=== PATIENT | male | born 1955 | race Caucasian/White ===

== ENCOUNTER 2023-03-04 16:16 | Outpatient (OUT) | payer OTHER, SELFPAY ==
[2023-03-04 16:45] LABS: Basophils Absolute Auto 0.1 10^3/uL (0.0-0.1); Basophils Percent Auto 0.8 % (0.2-2.0); Eosinophils Absolute Auto 0.4 10^3/uL (0.0-0.7); Eosinophils Percent Auto 5.6 % (0.9-7.0); Hematocrit 45.1 % (42.0-54.0); Hemoglobin 15.3 g/dL (14.0-18.0); Immature Granulocytes Abs Auto 0.01 10^3/uL (0.00-0.03); Immature Granulocytes Pct Auto 0.1 % (0.0-0.5); Lymphocytes Percent Auto 27.4 % (20.5-60.0); Mean Corpuscular HGB Conc 33.9 g/dL (29.9-35.2); Mean Corpuscular Hemoglobin 29.4 pg (25.9-34.0); Mean Corpuscular Volume 86.6 fL (80.0-94.0); Mean Platelet Volume 10.9 fL (9.5-13.5); Monocytes Absolute Auto 0.7 10^3/uL (0.3-0.8); Monocytes Percent Auto 9.1 % (1.7-12.0); Neutrophils Absolute Auto 4.2 10^3/uL (1.4-6.5); Platelet Count 221 10^3/uL (150-450); Red Blood Count 5.21 10^6/uL (4.70-6.10); Red Cell Distribution Width 12.7 % (11.0-15.0); White Blood Count 7.3 10^3/uL (4.0-11.0)
[2023-03-04 17:11] LABS: Alanine Aminotransferase 33 U/L (16-63); Albumin Globulin Ratio 1.1; Albumin Level 4.3 g/dL (3.4-5.0); Alkaline Phosphatase 48 U/L (46-116); Anion Gap 13.3; Aspartate Amino Transferase 17 U/L (15-37); BUN Creatinine Ratio 20.2; Bilirubin Total 0.7 mg/dL (0.2-1.0); Calcium 9.4 mg/dL (8.5-10.1); Carbon Dioxide 29.6 mmol/L (21.0-32.0); Chloride 100 mmol/L (98-107); Estimated GFR (African America >60 (>=60); Estimated GFR (Non-African Ame >60 (>=60); Glucose 135 mg/dL (74-106); Potassium 3.9 mmol/L (3.5-5.1); Sodium 139 mmol/L (136-145); Total Protein 8.3 g/dL (6.4-8.2)
== END 2023-03-04 16:17 | disposition home or self-care (01) ==
PROVIDERS: PCP Internal Medicine; Visit Provider Internal Medicine
DX: K74.60 Unspecified cirrhosis of liver (principal); R18.8 Other ascites
CPT/HCPCS: 36415; 80053; 85025

== ENCOUNTER 2023-10-06 11:29 | Outpatient (OUT) | payer OTHER, SELFPAY ==
[2023-10-06 12:21] LABS: Basophils Absolute Auto 0.1 10^3/uL (0.0-0.1); Basophils Percent Auto 1.1 % (0.2-2.0); Eosinophils Absolute Auto 0.3 10^3/uL (0.0-0.7); Eosinophils Percent Auto 4.7 % (0.9-7.0); Hematocrit 48.2 % (42.0-54.0); Hemoglobin 16.2 g/dL (14.0-18.0); Immature Granulocytes Abs Auto 0.02 10^3/uL (0.00-0.03); Immature Granulocytes Pct Auto 0.4 % (0.0-0.5); Lymphocytes Absolute Auto 1.5 10^3/uL (1.2-3.8); Lymphocytes Percent Auto 27.6 % (20.5-60.0); Mean Corpuscular HGB Conc 33.6 g/dL (29.9-35.2); Mean Corpuscular Hemoglobin 29.7 pg (25.9-34.0); Mean Corpuscular Volume 88.4 fL (80.0-94.0); Mean Platelet Volume 11.7 fL (9.5-13.5); Monocytes Absolute Auto 0.6 10^3/uL (0.3-0.8); Monocytes Percent Auto 10.6 % (1.7-12.0); Neutrophils Absolute Auto 3.1 10^3/uL (1.4-6.5); Neutrophils Percent Auto 55.6 % (43.0-75.0); Platelet Count 214 10^3/uL (150-450); Red Blood Count 5.45 10^6/uL (4.70-6.10); Red Cell Distribution Width 12.5 % (11.0-15.0); White Blood Count 5.5 10^3/uL (4.0-11.0)
[2023-10-06 12:24] LABS: Alanine Aminotransferase 31 U/L (16-63); Albumin Globulin Ratio 0.9; Albumin Level 3.8 g/dL (3.4-5.0); Alkaline Phosphatase 44 U/L (46-116); Anion Gap 12.4; Aspartate Amino Transferase 14 U/L (15-37); BUN Creatinine Ratio 16.5; Bilirubin Total 0.8 mg/dL (0.2-1.0); Carbon Dioxide 29.9 mmol/L (21.0-32.0); Chloride 99 mmol/L (98-107); Estimated GFR (African America >60 (>=60); Estimated GFR (Non-African Ame >60 (>=60); Globulin 4.1 g/dL; Glucose 312 mg/dL (74-106); Potassium 4.3 mmol/L (3.5-5.1); Sodium 137 mmol/L (136-145); Total Protein 7.9 g/dL (6.4-8.2)
[2023-10-07 03:07] LABS: PSA, Free 0.08 ng/mL; Prostate Specific Ag 0.2 ng/mL (0.0-4.0)
== END 2023-10-06 11:30 | disposition home or self-care (01) ==
LOC: LAB 11:30
PROVIDERS: PCP Internal Medicine; Visit Provider Internal Medicine
DX: K74.69 Other cirrhosis of liver (principal); I10 Essential (primary) hypertension; B18.2 Chronic viral hepatitis C; Z12.5 Encounter for screening for malignant neoplasm of prostate
CPT/HCPCS: 36415; 80053; 84153; 84154; 85025

== ENCOUNTER 2023-10-18 10:43 | Outpatient (OUT) | payer OTHER, SELFPAY ==
--- OUTSIDE RECORDS SUMMARY | 2023-10-18 10:47 | XMS_ITS | CCD ---
Author Organization [facility] Care Team Providers Care Financial Intern Name Role Phone KIMBERLEY WALSH JR Admitting Unavailable SHAIKH ELKINS Primary Care Unavailable KIMBERLEY WALSH JR Consulting Unavailable KIMBERLEY WALSH JR Attending Unavailable KIMBERLEY WALSH JR Attending Unavailable KIMBERLEY WALSH JR Admitting Unavailable SHAIKH ELKINS Primary Care Unavailable KIMBERLEY WALSH JR Consulting Unavailable SHAIKH ELKINS Consulting Unavailable LULA BLANTON Consulting Unavailable KIMBERLEY WALSH JR Attending Unavailable SHAIKH ELKINS Primary Care Unavailable KIMBERLEY WALSH JR Admitting Unavailable SHAIKH ELKINS Primary Care Unavailable KIMBERLEY WALSH JR Admitting Unavailable KIMBERLEY WALSH JR Consulting Unavailable KIMBERLEY WALSH JR Attending Unavailable SHAIKH ELKINS Primary Care Unavailable SHAIKH ELKINS Consulting Unavailable SHAIKH ELKINS Attending Unavailable SHAIKH ELKINS Admitting Unavailable MD Bg Perez Attending Provider MD Pat Elkins Primary Care Provider [phone] Bg Perez Attending Unavailable Bg Perez Admitting Unavailable Shaikh Elkins Primary Care Unavailable Diamond Bear Unavailable SHAIKH ELKINS Attending Unavailable Medications Current Medications Medication Drug Class(es) Dates Sig (Normalized) Sig (Original) Ascorbic Acid (1 source) Vitamin C Vitamin C Active Folic Acid (1 source) Folic Acid Activ e Furosemide (1 source) Loop Diuretic Furosemide Activ e Potassium (1 source) Potassium Active vitamin B12 (1 source) Vitamin B12 Vitamin B12 Acti ve Vitamin D3 (1 source) Vitamin D3 Activ e Completed/Discontinued Medications Medication Drug Class(es) Dates Sig (Normalized) Sig (Original) Spironolactone (1 source) Aldosterone Antagonist Spironola ctone Not-Taking/PRN Problems Active Problems Problem Classification Problem Date Documented Date Episodic/Chronic Hepatitis (4 sources) Chronic viral hepatitis C; Translations: [CHRONIC VIRAL HEPATITIS C] Onset: 12-12-2020 Chronic Hepatitis (6 sources) Unspecified viral hepatitis C without hepatic coma; Translations: [Viral hepatitis C] Onset: 03-12-2021 Episodic Influenza (1 source) Influenza due to other identified influenza virus with other respiratory manifestations Episodic Other liver diseases (3 sources) Unspecified cirrhosis of liver; Translations: [Cirrhotic] Onset: 03-12-2021 Chronic Past or Other Problems Problem Classification Problem Date Documented Da te Episodic/Chronic Other screening for suspected conditions (not mental disorders or infectious disease) (4 sources) Encounter for screening for malignant neoplasm of colon; Translations: [ENC SCREEN MALIG NEOPLASM COLON] Onset: 03-07-2021 Episodic Unclassified (1 source) Contact with and (suspected) exposure to covid-19 Z20.822 Results Test Name Value Interpretation Reference Range Facility COVID + FLU Quick Testingon 07-18-2023 SARS-CoV-2 (COVID-19) RNA HARDEEP+probe Ql (Unsp spec) Negative [facility] Other COVID + FLU Quick Testing Positive [facility] Other COVID + FLU Quick Testing Negative [facility] Other AFP Tumor Marker, Serumon AFP Tumor Marker, Serum 0.9 ng/mL Normal 0.0-8.4 [facility] Comment on above: Order Comment: Reason for Exam Cirrhosis Result Comment: [facility] Electrochemiluminescence Immunoassay (ECLIA) Values obtained with different assay methods or kits cannot be used interchangeably. Results cannot be interpreted as absolute evidence of the presence or absence of malignant disease. This test is not interpretable in females. Performed at: - [facility] [id number] [employer] Pro: Jose Alberto Alegria PhD, Phone: [phone] PERFORMED BY: [address] [place] [address] PATHOLOGIST CERTIFICATION OFFICER NORM SKINNER M.D. Performed By: #### A FP #### [facility] , liveron 04-30-2022 liver [facility] [place] [address] Ultrasound Report Signed Patient: Herbert Hightower MR#: [id number] : 1955 Acct:[id number] Age/Sex: 67 / M ADM Date: 04/30/22 Loc: Room: Type: [facility] [address] Attending Dr: Bg Perez MD Ordering Provider: Bg Perez MD Date of Service: 04/30/22 US/US liver: Cirrhosis Copies to: Bg Perez MD Liver ultrasound HISTORY: Cirrhosis COMPARISON:None Negative ultrasound Woods's sign reported. Common duct measures 4mm. Diffuse increased echogenicity of the liver is consistent with fatty infiltration. No hepatic mass identified. No intrahepatic biliary ductal dilatation identified. Shadowing gallstones identified. No gallbladder wall thickening is seen. No pericholecystic fluid is identified. The visualized portions of the pancreas are unremarkable. Normal blood flow of the main portal vein is identified. The liver has a length of16.2 cm. No RIGHT hydronephrosis identified. US/US liver IMPRESSION: Hepatic steatosis. No biliary duct dilatation. Cholelithiasis. Impression dictated by: Xavi Rincon M.D.04/30/2022 4:21 PM Dictation Location: [place] [address] Tech: Roxanne Alyssa Transcribed By: STAR 04/30/22 162 Dictated By: Xavi Rincon DO 04/30/22 161 Signed By: 04/30/22 1621 [facility] HEPATITIS C VIRUS (HCV) TONY T PCR (NON-[place] 09-21-2021 HCV log10 Normal [facility] Comment on above: Performed By: #### HCVQNNG #### [facility] [address] [address] [address] Genet Ballard Hepatitis C Quantitation Not detected Normal [facility] Comment on above: Performed By: #### HCVQNNG #### [facility] [address] [place] [address] Dr. Genet Ballard Test Information: Comment Normal [facility] Comment on above: Result Comment: The quantitative range o f this assay is 15 IU/mL to 100 million IU/mL. Performed By: #### H CVQNNG #### [facility] [address] [place] [address] Dr. Genet Ballard HEPATITIS C VIRUS (HCV) TONY T PCR (NON-[place] 05-09-2021 HCV log10 Normal [facility] Comment on above: Performed By: #### HCVQNNG #### [facility] [address] [place] [address] Dr. Genet Ballard Hepatitis C Quantitation Not detected Normal [facility] Comment on above: Performed By: #### HCVQNNG #### [facility] [address] [place] [address] Dr. Genet Ballard Test Information: Comment Normal [facility] Comment on above: Result Comment: The quantitative range o f this assay is 15 IU/mL to 100 million IU/mL. Performed By: #### H CVQNNG #### [facility] [address] [place] [address] Dr. Genet Ballard CBC AUTO DIFFon 05-07-2021 BASO # 0.1 103/ul Normal 0.0-0.1 [facility] Comment on above: Performed By: #### CBC #### [facility] [address] [place] [address] Dr. Genet Ballard Basophils/100 WBC (Bld) 1.1 % Normal 0.2-2.0 [facility] Comment on above: Performed By: #### CBC #### [facility] [address] [place] [address] Dr. Genet Ballard EO # 0.2 103/ul Normal 0.0-0.7 [facility] Comment on above: Performed By: #### CBC #### [facility] [address] [place] [address] Dr. Genet Ballard Eosinophils/100 WBC (Bld) 2.8 % Normal 0.9-7.0 [facility] Comment on above: Performed By: #### CBC #### [facility] [address] [address] [address] Genet Ballard Erythrocyte distribution width (RBC) [Ratio] 13.0 % Normal 11.0-15.0 [facility] Comment on above: Performed By: #### CBC #### [facility] [address] [address] [address] Genet Ballard Hematocrit (Bld) [Volume fraction] 45.3 % Normal 42.0-54.0 [facility] Comment on above: Performed By: #### CBC #### [facility] [address] [address] [address] Genet Ballard Hemoglobin (Bld) [Mass/Vol] 15.1 g/dL Normal 14.0-18.0 [facility] Comment on above: Performed By: #### CBC #### [facility] [address] [place] [address] Dr. Genet Ballard IG # 0.01 10e3/ul Normal 0.00-0.03 [facility] Comment on above: Performed By: #### CBC #### [facility] [address] [place] [address] Dr. Genet Ballard IG % 0.2 % Normal 0.0-0.5 [facility] Comment on above: Performed By: #### CBC #### [facility] [address] [place] [address] Dr. Genet Ballard LYMPH # 2.4 103/ul Normal 1.2-3.8 [facility] Comment on above: Performed By: #### CBC #### [facility] [address] [place] [address] Dr. Genet Ballard Lymphocytes/100 WBC (Bld) 37.4 % Normal 20.5-60.0 [facility] Comment on above: Performed By: #### CBC #### [facility] [address] [place] [address] Dr. Genet Ballard MANUAL DIFF REQ NO Normal [facility] Comment on above: Performed By: #### CBC #### [facility] [address] [address] [address] Genet Ballard MCH (RBC) [Entitic mass] 30.0 pg Normal 25.9-34.0 [facility] Comment on above: Performed By: #### CBC #### [facility] [address] [place] [address] Dr. Genet Ballard MCHC (RBC) [Mass/Vol] 33.3 g/dL Normal 29.9-35.2 [facility] Comment on above: Performed By: #### CBC #### [facility] [address] [place] [address] Dr. Genet Ballard MCV (RBC) [Entitic vol] 90.1 fL Normal 80.0-94.0 [facility] Comment on above: Performed By: #### CBC #### [facility] [address] [place] [address] Dr. Genet Ballard MONO # 0.6 103/ul Normal 0.3-0.8 [facility] Comment on above: Performed By: #### CBC #### [facility] [address] [place] [address] Dr. Genet Ballard Monocytes/100 WBC (Bld) 9.7 % Normal 1.7-12.0 [facility] Comment on above: Performed By: #### CBC #### [facility] [address] [place] [address] Dr. Genet Ballard NEUT # 3.1 103/ul Normal 1.4-6.5 [facility] Comment on above: Performed By: #### CBC #### [facility] [address] [place] [address] Dr. Genet Ballard Neutrophils/100 WBC (Bld) 48.8 % Normal 43.0-75.0 [facility] Comment on above: Performed By: #### CBC #### [facility] [address] [address] [address] Genet Ballard Platelet mean volume (Bld) [Entitic vol] 11.8 fL Normal 9.5-13.5 [facility] Comment on above: Performed By: #### CBC #### [facility] [address] [address] [address] Genet Ballard PLT 231 103/ul Normal 150-450 [facility] Comment on above: Performed By: #### CBC #### [facility] [address] [place] [address] Dr. Genet Ballard RBC 5.03 106/ul Normal 4.70-6.10 [facility] Comment on above: Performed By: #### CBC #### [facility] [address] [place] [address] Dr. Genet Ballard WBC 6.4 103/ul Normal 4.0-11.0 [facility] Comment on above: Performed By: #### CBC #### [facility] [address] [place] [address] Dr. Genet Ballard PROF 14(COMP METB)on 021 Albumin [Mass/Vol] 4.1 g/dL Normal 3.5-5.0 [facility] Comment on above: Performed By: #### CMP #### [facility] [address] [place] [address] Dr. Genet Ballard Albumin/Globuli n [Mass ratio] 1.1 {ratio} Normal [facility] Comment on above: Performed By: #### CMP #### [facility] [address] [place] [address] Dr. Genet Ballard ALP [Catalytic activity/Vol] 38 U/L Normal 38-126 [facility] Comment on above: Performed By: #### CMP #### [facility] [address] [place] [address] Dr. Genet Ballard ALT [Catalytic activity/Vol] 23 U/L Normal 21-72 [facility] Comment on above: Performed By: #### CMP #### [facility] [address] [place] [address] Dr. Genet Ballard Anion gap [Moles/Vol] 11.1 mmol/L Normal [facility] Comment on above: Performed By: #### CMP #### [facility] [address] [place] [address] Dr. Genet Ballard AST [Catalytic activity/Vol] 20 U/L Normal 17-59 [facility] Comment on above: Performed By: #### CMP #### [facility] [address] [address] [address] Genet Ballard Bilirubin [Mass/Vol] 0.9 mg/dL Normal 0.2-1.3 [facility] Comment on above: Performed By: #### CMP #### [facility] [address] [address] [address] Genet Ballard Calcium [Mass/Vol] 9.4 mg/dL Normal 8.4-10.2 [facility] Comment on above: Performed By: #### CMP #### [facility] [address] [address] [address] Genet Ballard Chloride [Moles/Vol] 104 mmol/L Normal 98-107 [facility] Comment on above: Performed By: #### CMP #### [facility] [address] [address] [address] Genet Ballard CO2 [Moles/Vol] 31.4 mmol/L Critically high 22.0-30.0 [facility] Comment on above: Performed By: #### CMP #### [facility] [address] [address] [address] Genet Ballard Creatinine [Mass/Vol] 0.90 mg/dL Normal 0.66-1.25 [facility] Comment on above: Performed By: #### CMP #### [facility] [address] [address] [address] Genet Ballard EGFR-AF HONG KONGER >60 Normal >=60 [facility] Comment on above: Performed By: #### CMP #### [facility] [address] [address] [address] Genet Ballard EGFR-NON AF [place]ER >60 Normal >=60 [facility] Comment on above: Performed By: #### CMP #### [facility] [address] [place] [address] Dr. Genet Blalard Globulin (S) [Mass/Vol] 3.8 g/dL Normal [facility] Comment on above: Performed By: #### CMP #### [facility] [address] [address] [address] Genet Ballard Glucose [Mass/Vol] 119 mg/dL Critically high 74-106 [facility] Comment on above: Performed By: #### CMP #### [facility] [address] [address] [address] Genet Ballard Potassium [Moles/Vol] 4.5 mmol/L Normal 3.4-5.0 [facility] Comment on above: Performed By: #### CMP #### [facility] [address] [place] [address] Dr. Genet Ballard Protein [Mass/Vol] 7.9 g/dL Normal 6.1-8.2 [facility] Comment on above: Performed By: #### CMP #### [facility] [address] [place] [address] Dr. Genet Ballard Sodium [Moles/Vol] 142 mmol/L Normal 137-145 [facility] Comment on above: Performed By: #### CMP #### [facility] [address] [place] [address] Dr. Genet Ballard Urea nitrogen [Mass/Vol] 16.0 mg/dL Normal 9.0-20.0 [facility] Comment on above: Performed By: #### CMP #### [facility] [address] [place] [address] Dr. Genet Ballard Urea nitrogen/Creati nine [Mass ratio] 17.8 mg/mg Normal [facility] Comment on above: Performed By: #### CMP #### [facility] [address] [place] [address] Dr. Genet Ballard HEPATITIS C VIRUS GENOTYPING , NONREFLEXon 12-14-2020 Hepatitis C Genotype 1a Normal [facility] Comment on above: Performed By: #### HCVGENE #### [facility] [address] [place] [address] Jeffrey Lazo Please note: Comment Normal [facility] Comment on above: Result Comment: This test was developed and its performance characteristics determined by [facility]. It has not been cleared or approved by the U.S. Food and Drug Administration. . The FDA has determined that such clearance or approval is not necessary. This test is used for clinical purposes. It should not be regarded as investigational or for research. Performed By: #### H CVGENE #### [facility] [address] [place] [address] Jeffrey Lazo HEP B SURFACE AGon HBsAg Screen Negative Normal Negative [facility] Comment on above: Performed By: #### HEPBSUR #### [facility] [address] [place] [address] Jeffrey Lazo HEPATITIS B SURFACE ANTIBODY , QUANTon 12-13-2020 Hepatitis B Surf AB Quant <3.1 Critically low Immunity>9.9 [facility] Comment on above: Result Comment: Status of Immunity Anti- HBs Level Inconsistent with Immunity 0.0 - 9.9 Consistent with Immunity >9.9 Performed By: #### H EPBSRF #### [facility] [address] [place] [address] Jeffrey Lazo HEPATITIS C ANTIBODYon 12-13 Hep C Virus Ab >11.0 Critically high 0.0-0.9 [facility] Comment on above: Result Comment: Negative: < 0.8 Indeterminate: 0.8 - 0.9 Positive: > 0.9 . The CDC recommends that a positive HCV antibody result be followed up with a HCV Nucleic Acid Amplification test (171800). Performed By: #### H CV #### [facility] [address] [place] [address] Jeffrey Lazo HEPATITIS C VIRUS (HCV) TONY T PCR (NON-[place] 12-13-2020 HCV log10 6.524 log10 IU/mL Normal [facility] Comment on above: Performed By: #### HCVQNNG #### [facility] [address] [place] [address] Jeffrey Lazo Hepatitis C Quantitation [id number] IU/mL Normal [facility] Comment on above: Performed By: #### HCVQNNG #### [facility] [address] [place] [address] Jeffrey Lazo Test Information: Comment Normal [facility] Comment on above: Result Comment: The quantitative range o f this assay is 15 IU/mL to 100 million IU/mL. Performed By: #### H CVQNNG #### [facility] [address] [place] [address] Jeffreylindsay Lazo PROF 14(COMP METB)on 021 Albumin [Mass/Vol] 3.8 g/dL Normal 3.5-5.0 [facility] Comment on above: Performed By: #### CMP #### [facility] [address] [place] [address] Jeffrey Violet Albumin/Globuli n [Mass ratio] 0.9 {ratio} Normal [facility] Comment on above: Performed By: #### CMP #### [facility] [address] [place] [address] Jeffrey Violet ALP [Catalytic activity/Vol] 42 U/L Normal 38-126 [facility] Comment on above: Performed By: #### CMP #### [facility] [address] [place] [address] Jeffrey Violet ALT [Catalytic activity/Vol] 52 U/L Normal 21-72 [facility] Comment on above: Performed By: #### CMP #### [facility] [address] [place], [place] [id number] Jeffrey Violet Anion gap [Moles/Vol] 13.7 mmol/L Normal [facility] Comment on above: Performed By: #### CMP #### [facility] [address] [place] [address] Jeffrey Violet AST [Catalytic activity/Vol] 29 U/L Normal 17-59 [facility] Comment on above: Performed By: #### CMP #### [facility] [address] [place], [place] [id number] Jeffrey Violet Bilirubin [Mass/Vol] 0.9 mg/dL Normal 0.2-1.3 [facility] Comment on above: Performed By: #### CMP #### [facility] [address] [place] [address] Jeffrey Violet Calcium [Mass/Vol] 8.8 mg/dL Normal 8.4-10.2 [facility] Comment on above: Performed By: #### CMP #### [facility] [address] [id number] Jeffrey Violet Chloride [Moles/Vol] 102 mmol/L Normal 98-107 [facility] Comment on above: Performed By: #### CMP #### [facility] [address] [address] Jeffrey Violet CO2 [Moles/Vol] 27.3 mmol/L Normal 22.0-30.0 [facility] Comment on above: Performed By: #### CMP #### [facility] [address] [place] [address] Jeffrey Violet Creatinine [Mass/Vol] 0.97 mg/dL Normal 0.66-1.25 [facility] Comment on above: Performed By: #### CMP #### [facility] [address] [place] [address] Ejffrey Violet EGFR-AF [place]ER >60 Normal >=60 [facility] Comment on above: Performed By: #### CMP #### [facility] [address] [place] [address] Jeffrey Violet EGFR-NON AF [place]ER >60 Normal >=60 [facility] Comment on above: Performed By: #### CMP #### [facility] [address] [place] [address] Jeffrey Violet Globulin (S) [Mass/Vol] 4.0 g/dL Normal [facility] Comment on above: Performed By: #### CMP #### [facility] [address] [place] [address] Jeffrey Violet Glucose [Mass/Vol] 148 mg/dL Critically high 74-106 [facility] Comment on above: Performed By: #### CMP #### [facility] [address] [place] [address] Jeffrey Violet Potassium [Moles/Vol] 4.0 mmol/L Normal 3.4-5.0 [facility] Comment on above: Performed By: #### CMP #### [facility] [address] [place] [address] Jeffrey Violet Protein [Mass/Vol] 7.8 g/dL Normal 6.1-8.2 [facility] Comment on above: Performed By: #### CMP #### [facility] [address] [place] [address] Jeffrey Violet Sodium [Moles/Vol] 139 mmol/L Normal 137-145 [facility] Comment on above: Performed By: #### CMP #### [facility] [address] [place], [place] [id number] Jeffrey Violet Urea nitrogen [Mass/Vol] 16.0 mg/dL Normal 9.0-20.0 [facility] Comment on above: Performed By: #### CMP #### [facility] [address] [place], [place] [id number] Jeffrey Violet Urea nitrogen/Creati nine [Mass ratio] 16.5 mg/mg Normal [facility] Comment on above: Performed By: #### CMP #### [facility] [address] [place] [address] Jeffrey Clarkeen PROTIMEon 12-12-2020 INR Coag (PPP) [Relative time] 0.96 {INR} Normal [facility] Comment on above: Performed By: #### HCVQNNG #### [facility] [address] [place] [address] Dr. Genet Ballard INR GUIDELINES SEE BELOW Normal [facility] Comment on above: Result Comment: DESIRED INR: 2.0 - 3.0 C ONDITIONS NOT LISTED BELOW 2.5 - 3.5 FOR PROSTHETIC HEART VALVE REPLACEMENT 2.5 - 3.5 RECURRENT THROMBOSIS Performed By: #### H CVQNNG #### [facility] [address] [place] [address] Dr. Genet Ballard PT Coag (PPP) [Time] 10.5 s Normal 9.0-11.6 [facility] Comment on above: Performed By: #### HCVQNNG #### [facility] [address] [place] [address] Dr. Genet Ballard Vital Signs Date Time Vital Sign Value Performing Clinician Facility 07-18-2023 09:35-0500 Body height 185.42 cm Diamond Bear Other [facility] Other 07-18-2023 09:35-0500 Body mass index (BMI) [Ratio] 30.34 kg/m2 Diamond Marianela Other [facility] Other 07-18-2023 09:35-0500 Body temperature 99.3 [degF] Diamond Marianela Other [facility] Other 07-18-2023 09:35-0500 Body weight 104.33 kg Diamond Marianela Other [facility] Other 07-18-2023 09:35-0500 Diastolic blood pressure 84 mm[Hg] Diamond Marianela Other [facility] Other 07-18-2023 09:35-0500 Respiratory rate 18 /min Diamond Marianela Other [facility] Other 07-18-2023 09:35-0500 SaO2% (BldA) [Mass fraction] 96 % Diamond Marianela Other [facility] Other 07-18-2023 09:35-0500 Systolic blood pressure 140 mm[Hg] Diamond Marianela Other [facility] Other Encounters Encounter Date Encounter Type Care Provider Facility Start: 09-16-2023 End: 09-16-2023 ambulatory SHAIKH ERYN Not Available Start: 07-18-2023 End: 07-18-2023 ambulatory Diamond Bear Other [facility] Other Start: 07-18-2023 Office outpatient vi sit 15 minutes Diamond Bear [facility] Start: 04-30-2022 End: 04-30-2022 ambulatory Bg Perez Facility:[facility] Start: 04-30-2022 End: 04-30-2022 ambulatory MD Shaikh Elkins Work Phone: [facility] Work Phone: Start: 04-30-2022 End: 04-30-2022 Patient encounter procedure MD Shaikh Elkins Work Phone: [facility] [place] Start: 09-19-2021 End: 09-20-2021 ambulatory KIMBERLEY WALSH JR Facility:[facility] Start: 05-07-2021 End: 05-08-2021 ambulatory SHAIKH ERYN Facility:[facility] Start: 03-07-2021 End: 03-07-2021 ambulatory KIMBERLEY WALSH JR Facility:[facility] Start: 03-05-2021 ambulatory KIMBERLEY WALSH JR Facili ty:[facility] Start: 12-12-2020 End: 12-13-2020 ambulatory SHAIKH ERYN Facility:[facility] Procedures Date Procedure Procedure Detail Performing Clinician Start: 04-30-2022 Ultrasonography of liver MD Shaikh Elkins Work Phone: Screening for malign ant neoplasm of colon Diamond Bear Other Plan of Treatment Date Care Activity Detail Author [id number]. tumor marker [Mass/volume] in Serum or Plasma [facility] Work Phone: Immunizations Immunization Date Immunization Notes Care Provider Luda romero 11-04-2020 Do not use COVID-19 Pfizer 2 dose Diamond Bear Other [facility] Other 10-29-2020 COVID-19 mRNA, Comirnaty (Pfizer) MD Shaikh Elkins Work Phone: [facility] 10-13-2020 COVID-19 mRNA Comirnatyobany (Pfizer) MD Shaikh Elkins Work Phone: [facility] Payers Date Payer Category Payer Self-pay [id number] 1958 Unknown [id number] 1955 Unknown [id number] 2.16.84 [id number] 1955 Unknown [id number] 2.16.84 [id number] 1955 Unknown [id number] 2.16.84 [id number] 1955 Unknown [id number] 2.16.84 [id number] 1955 Unknown [id number] 2.16.84 [id number] 1955 Unknown [id number] 2.16.84 [id number] Unknown [id number] 2.16.8 [id number] Unknown [id number] 2.16.8 [id number] Social History Date Type Detail Facility Tobacco smoking status NDIS Unknown if ever smoked [facility] Work Phone: Start: 1955 Sex Assigned At Male F [facility] Sex Assigned At Sex Assigned At Bir th [facility] Other Evaluation note 07-18-2023 Note Date & Type Note Facility 07-18-2023 Evaluation note Encounter Date Diagnosis Assessment Notes Jun, Contact with and (suspected) exposure to covid-19 (ICD-10 - Z20.822) Jun, Influenza A (ICD-10 - J10.1) Jun, Other Influenza: adult home care material was printed Drink plenty of fluids, get plenty of rest. Take tylenol or motrin for aches, pains, fevers. It is recommended that you quarentine unitl Friday. Follow up with your family physician if no improvement in 2-3 days [facility] Other Clinical Note 03-07-2021 Note Date & Type Note Facility 03-07-2021 Note OPERATIVE NOTE OPERATION DATE: 03-07-21 ANESTHETIC: MAC. Propofol as per the anesthesia department. PREOPERATIVE DIAGNOSIS: 1. Cirrhosis, rule-out varices. 2. Colorectal cancer screening. POSTOPERATIVE DIAGNOSIS: 1. Normal EGD. 2. Normal colonoscopy. PROCEDURE NAME: 1. EGD. 2. Colonoscopy. INDICATION: O2 oximetry, hemodynamic monitoring performed pre, during and post procedures. The patient was identified, H AND P completed. The patient was given full explanation of the procedures as well as associated risks and written consent was obtained prior to the procedures. The patient expressed complete understanding of the procedures as well as alternatives to the procedures and anesthesia and agrees to proceed with the procedures as indicated. The patient was immediately reassessed prior to IV sedation. PROCEDURE: Following IV sedation, the patient was placed in the left lateral decubitus position. A bite block was inserted. The endoscope was passed through the mouth and down to the esophagus. The scope was passed down the GE junction which appeared normal. The scope was then continued into the stomach, down to the antrum, through the pyloric channel into the duodenal bulb and the second portion of the duodenum. There was no evidence of any duodenitis. The scope was withdrawn back into the stomach, there was no evidence of gastritis. Retroflexion was performed which demonstrated no significant hiatal hernia. There were no gastric varices. The scope was then straightened. The stomach was decompressed, the scope was withdrawn into the esophagus, there were no esophageal varices. The scope was removed. Subsequently the bed was switched around, the scope was changed. A digital rectal exam was performed which did not demonstrate any masses. The videocolonoscope was inserted and passed proximally. The colonoscope was advanced over to the right side, the ileocecal valve, cecal floor and appendiceal orifice were identified. The colonoscope was slowly withdrawn through the ascending colon, hepatic flexure, transverse colon, splenic flexure, descending colon and into the sigmoid colon. There were no polyps identified. The colonoscope was then withdrawn into the rectum, retroflexion was performed which demonstrated no significant hemorrhoids. The colonoscope was then straightened and removed. Following a period of recovery, the patient was seen, given full explanation of the procedures. The patient tolerated the procedures well and may be discharged when in satisfactory, stable and ambulatory condition. RECOMMENDATIONS: 1. Colonoscopy would be recommended in 10 years. 2. Followup in the office for continued management of cirrhosis. [facility] Signed and Approved by: KIMBERLEY WALSH JR 03/07/2021 11:12:00 [facility] Evaluation note Note Date & Type Note Facility Evaluation note No assessment information availa [facility] Work Phone: History general Narrative - Reported Note Date & Type Note Facility History general Narrative - Reported Type Medical History hepatitis C [facility] Other Summary Purpose Family History No Family History Records FoundNo Family History Records FoundNo Family History Records Found Advance Directives No Advanced Directives Records Found Advance Directive Response Recorded Date/ Time Advance Directives No February 19 10:04am Chief Complaint and Reason for Visit Chief Complaint Cirrhosis Additional Source Comments (unrecognized sect ion and content) No Status Records FoundNo Status Records FoundNo Status Records Found INFORMATION SOURCE (unrecogn ized section and content) DATE CREATED AUTHOR 09/21/2021 [facility] DATE CREATED AUTHOR AUTHOR'S ORGANIZ ATION 05/01/[address] [facility] DATE CREATED AUTHOR AUTHOR'S ORGANIZ ATION 09/23/2023 [facility] EPIC Care Teams (unrecognized sec tion and content) Team Status: Inactive Member Role Status Dates Bg Perez MD Attending Provider Active Shaikh Eryn MD Primary Care Provider Active Team Status: Active Member Role Status Dates Shaikh Eryn MD Primary Care Provider Active Goals (unrecognized section and content) Goals may be documented in a n alternate sectionNo Information REASON FOR VISIT (unrecogniz ed section and content) POSS SINUS INFECTION FOR RECORDS PERTAINING TO PATIENTS WHO ARE OR HAVE BEEN ENROLLED IN A CHEMICAL DEPENDENCY/SUBSTANCEABUSE PROGRAM, SOME INFORMATION MAY BE OMITTED. This clinical summary was aggregated from multiple sources. Caution should be exercised in using it in the provision of clinical care. This summary normalizes information from multiple sources, and as a consequence, information in this document may materially change the coding, format and clinical context of patient data. In addition, data may be omitted in some cases. CLINICAL DECISIONS SHOULD BE BASED ON THE PRIMARY CLINICAL RECORDS. [employer] [facility]. provides no warranty or guarantee of the accuracy or completeness of information in this document.
--- NOTE | 2023-10-18 11:11 | US_ITS ---
[address] [address] Patient Name: STEFFI HIGHTOWER MRN: [id number] date: 1955 Sex: M Assigned Patient Location: US Current Patient Location: Accession/Order Number: [id number] Exam Date: 10/18/2023 11:15 Report Date: 10/20/2023 07:19 At the request of: SHAIKH BRITTNI Procedure: US right upper quadrant EXAM: US right upper quadrant HISTORY: Chronic hepatitis C without hepatic coma B18.2 COMPARISON: None. TECHNIQUE: Grayscale, color and Doppler FINDINGS: The liver is normal in size measuring 19.1 cm. Normal contour. Diffusely echogenic liver. Multiple areas of hypoechogenicity scattered throughout the liver are nonspecific possibly representing fatty sparing but indeterminate. Hepatopedal flow in the main portal vein with velocity 23 cm/s. The visualized pancreas is normal. The gallbladder is normal in size. The wall measures 1.7 mm, normal. Negative sonographic Woods sign. Echogenic focus within the gallbladder lumen measuring 2.7 cm, cholelithiasis. The common bile duct measures 5.2 mm. The right kidney is normal measuring 12.2 x 6.4 x 6.1 cm US/US right upper quadrant IMPRESSION: Echogenic liver with areas of hypoechogenicity, indeterminate. Consider multiphasic CT or MRI for further evaluation Electronically authenticated by: KIMBERLEY LEPE Date: 10/20/2023 07:19
== END 2023-10-18 10:44 | disposition home or self-care (01) ==
LOC: US 10:44
PROVIDERS: PCP Internal Medicine; Visit Provider Internal Medicine
DX: K74.69 Other cirrhosis of liver (principal); B18.2 Chronic viral hepatitis C; K80.20 Calculus of gallbladder without cholecystitis without obstruction
CPT/HCPCS: 76705

== ENCOUNTER 2023-11-04 07:39 | Outpatient (OUT) | payer OTHER, SELFPAY ==
--- OUTSIDE RECORDS SUMMARY | 2023-11-04 07:41 | XMS_ITS | CCD ---
Author Organization [facility] Care Team Providers Care Press Pipe Inspector Name Role Phone KIMBERLEY WALSH JR Admitting [...] Provider MD Pat Elkins Primary Care Provider Bg Perez Attending Unavailable Bg Perez Admitting [...] (COVID-19) RNA HARDEEP+probe Ql (Unsp spec) Negative [facility] Other COVID + FLU Quick Testing Positive [facility] Other COVID + FLU Quick Testing Negative [facility] Other AFP Tumor Marker, Serumon AFP Tumor Marker, Serum 0.9 ng/mL Normal 0.0-8.4 [facility] Comment on above: Order Comment: Reason for Exam Cirrhosis Result Comment: [facility] [employer] Electrochemiluminescence Immunoassay (ECLIA) Values obtained with different assay methods or kits cannot be used interchangeably. Results cannot be interpreted as absolute evidence of the presence or absence of malignant disease. This test is not interpretable in females. Performed at: - [address] [id number] Precision Lathe Operator: Jose Alberto Alegria PhD, Phone: [phone] PERFORMED BY: [address] [place] [address] PATHOLOGIST CHIEF ENVIRONMENTAL COMMITMENT OFFICER NORM SKINNER M.D. Performed By: #### A FP #### [facility] , liveron 04-30-2022 liver [facility] [place] [address] Ultrasound Report Signed Patient: Herbert Hightower MR#: [id number] : 1955 Acct:[id number] Age/Sex: 67 / M ADM Date: 04/30/22 Loc: Room: Type: [facility] Attending Dr: Bg Perez MD Ordering Provider: [...] Xavi Rincon M.D.04/30/2022 4:21 PM Dictation Location: [place] [address] Tech: Roxanne Alyssa Transcribed By: STAR 04/30/22 162 Dictated By: Xvai Rincon DO 04/30/22 161 Signed By: 04/30/22 1621 [facility] HEPATITIS C VIRUS (HCV) TONY T PCR (NON-[place] 09-21-2021 HCV log10 Normal [facility] Comment on above: Performed By: #### HCVQNNG #### [facility] [address] [place] [address] [address] Genet Ballard Hepatitis C Quantitation Not detected Normal [facility] Comment on above: Performed By: #### HCVQNNG #### [facility] [address] [place] [address] Dr. Genet Ballard Test Information: Comment Normal [facility] Comment on above: Result Comment: The quantitative range o f this assay is 15 IU/mL to 100 million IU/mL. Performed By: #### H CVQNNG #### [facility] [address] [place] [address] Dr. Genet Ballard HEPATITIS C VIRUS (HCV) TONY T PCR (NON-Moreno 05-09-2021 HCV log10 Normal [facility] Comment on above: Performed By: #### HCVQNNG #### [facility] [address] [place] [address] Dr. Genet Ballard Hepatitis C Quantitation Not detected Normal [facility] Comment on above: Performed By: #### HCVQNNG #### [facility] [address] [place] [address] Dr. Genet Ballard Test Information: Comment Normal [facility] Comment on above: Result Comment: The quantitative range o f this assay is 15 IU/mL to 100 million IU/mL. Performed By: #### H CVQNNG #### [facility] [address] [place] [address] Dr. Genet Blalard CBC AUTO DIFFon 05-07-2021 BASO # 0.1 103/ul Normal 0.0-0.1 [facility] Comment on above: Performed By: #### CBC #### [facility] [address] [place] [address] Dr. Genet Ballard Basophils/100 WBC (Bld) 1.1 % Normal 0.2-2.0 [facility] Comment on above: Performed By: #### CBC #### [facility] [address] [place] [address] Dr. Genet Ballard EO # 0.2 103/ul Normal 0.0-0.7 [facility] Comment on above: Performed By: #### CBC #### [facility] [address] [place] [address] Dr. Genet Ballard Eosinophils/100 WBC (Bld) 2.8 % Normal 0.9-7.0 [facility] Comment on above: Performed By: #### CBC #### [facility] [address] [place] [address] [address] Genet Ballard Erythrocyte distribution width (RBC) [Ratio] 13.0 % Normal 11.0-15.0 [facility] Comment on above: Performed By: #### CBC #### [facility] [address] [place] [address] [address] Genet Ballard Hematocrit (Bld) [Volume fraction] 45.3 % Normal 42.0-54.0 [facility] Comment on above: Performed By: #### CBC #### [facility] [address] [address] [address] Genet Ballard Hemoglobin (Bld) [Mass/Vol] 15.1 g/dL Normal 14.0-18.0 [facility] Comment on above: Performed By: #### CBC #### [facility] [address] [place] [address] Dr. Genet Ballard IG # 0.01 10e3/ul Normal 0.00-0.03 [facility] Comment on above: Performed By: #### CBC #### [facility] [address] [place] [address] Dr. Genet Ballard IG % 0.2 % Normal 0.0-0.5 [facility] Comment on above: Performed By: #### CBC #### [facility] [address] [place] [address] Dr. Genet Ballard LYMPH # 2.4 103/ul Normal 1.2-3.8 [facility] Comment on above: Performed By: #### CBC #### [facility] [address] [place] [address] Dr. Genet Ballard Lymphocytes/100 WBC (Bld) 37.4 % Normal 20.5-60.0 [facility] Comment on above: Performed By: #### CBC #### [facility] [address] [place] [address] Dr. Genet Ballard MANUAL DIFF REQ NO Normal [facility] Comment on above: Performed By: #### CBC #### [facility] [address] [address] [address] Genet Ballard MCH (RBC) [Entitic mass] 30.0 pg Normal 25.9-34.0 [facility] Comment on above: Performed By: #### CBC #### [facility] [address] [place] [address] Dr. Genet Ballard MCHC (RBC) [Mass/Vol] 33.3 g/dL Normal 29.9-35.2 [facility] Comment on above: Performed By: #### CBC #### [facility] [address] [place] [address] Dr. Genet Ballard MCV (RBC) [Entitic vol] 90.1 fL Normal 80.0-94.0 [facility] Comment on above: Performed By: #### CBC #### [facility] [address] [place] [address] Dr. Genet Ballard MONO # 0.6 103/ul Normal 0.3-0.8 [facility] Comment on above: Performed By: #### CBC #### [facility] [address] [place] [address] Dr. Genet Ballard Monocytes/100 WBC (Bld) 9.7 % Normal 1.7-12.0 [facility] Comment on above: Performed By: #### CBC #### [facility] [address] [place] [address] Dr. Genet Ballard NEUT # 3.1 103/ul Normal 1.4-6.5 [facility] Comment on above: Performed By: #### CBC #### [facility] [address] [place] [address] Dr. Genet Ballard Neutrophils/100 WBC (Bld) 48.8 % Normal 43.0-75.0 [facility] Comment on above: Performed By: #### CBC #### [facility] [address] [place] [address] [address] Genet Ballard Platelet mean volume (Bld) [Entitic vol] 11.8 fL Normal 9.5-13.5 [facility] Comment on above: Performed By: #### CBC #### [facility] [address] [place] [address] [address] Genet Ballard PLT 231 103/ul Normal 150-450 [facility] Comment on above: Performed By: #### CBC #### [facility] [address] [place] [address] Dr. Genet Ballard RBC 5.03 106/ul Normal 4.70-6.10 [facility] Comment on above: Performed By: #### CBC #### [facility] [address] [place] [address] Dr. Genet Ballard WBC 6.4 103/ul Normal 4.0-11.0 [facility] Comment on above: Performed By: #### CBC #### [facility] [address] [place] [address] Dr. Genet Ballard PROF 14(COMP METB)on 021 Albumin [Mass/Vol] 4.1 g/dL Normal 3.5-5.0 [facility] Comment on above: Performed By: #### CMP #### [facility] [address] [place] [address] Dr. Genet Ballard Albumin/Globuli n [Mass ratio] 1.1 {ratio} Normal [facility] Comment on above: Performed By: #### CMP #### [facility] [address] [place] [address] Dr. Genet Ballard ALP [Catalytic activity/Vol] 38 U/L Normal 38-126 [facility] Comment on above: Performed By: #### CMP #### [facility] [address] [place] [address] Dr. Genet Ballard ALT [Catalytic activity/Vol] 23 U/L Normal 21-72 [facility] Comment on above: Performed By: #### CMP #### [facility] [address] [place] [address] Dr. Genet Ballard Anion gap [Moles/Vol] 11.1 mmol/L Normal [facility] Comment on above: Performed By: #### CMP #### [facility] [address] [place] [address] Dr. Genet Ballard AST [Catalytic activity/Vol] 20 U/L Normal 17-59 [facility] Comment on above: Performed By: #### CMP #### [facility] [address] [address] [address] Genet Ballard Bilirubin [Mass/Vol] 0.9 mg/dL Normal 0.2-1.3 [facility] Comment on above: Performed By: #### CMP #### [facility] [address] [address] [address] Genet Ballard Calcium [Mass/Vol] 9.4 mg/dL Normal 8.4-10.2 [facility] Comment on above: Performed By: #### CMP #### [facility] [address] [place] [address] [address] Genet Ballard Chloride [Moles/Vol] 104 mmol/L Normal 98-107 [facility] Comment on above: Performed By: #### CMP #### [facility] [address] [address] [address] Genet Ballard CO2 [Moles/Vol] 31.4 mmol/L Critically high 22.0-30.0 [facility] Comment on above: Performed By: #### CMP #### [facility] [address] [address] [address] Genet Ballard Creatinine [Mass/Vol] 0.90 mg/dL Normal 0.66-1.25 [facility] Comment on above: Performed By: #### CMP #### [facility] [address] [place] [address] [address] Genet Ballard EGFR-AF SYRIAN >60 Normal >=60 [facility] Comment on above: Performed By: #### CMP #### [facility] [address] [address] [address] Genet Ballard EGFR-NON AF SYRIAN >60 Normal >=60 [facility] Comment on above: Performed By: #### CMP #### [facility] [address] [place] [address] Dr. Genet Ballard Globulin (S) [Mass/Vol] 3.8 g/dL Normal [facility] Comment on above: Performed By: #### CMP #### [facility] [address] [address] [address] Genet Ballard Glucose [Mass/Vol] 119 mg/dL Critically high 74-106 [facility] Comment on above: Performed By: #### CMP #### [facility] [address] [address] [address] Genet Ballard Potassium [Moles/Vol] 4.5 mmol/L Normal 3.4-5.0 [facility] Comment on above: Performed By: #### CMP #### [facility] [address] [place] [address] Dr. Genet Ballard Protein [Mass/Vol] 7.9 g/dL Normal 6.1-8.2 [facility] Comment on above: Performed By: #### CMP #### [facility] [address] [place] [address] Dr. Genet Ballard Sodium [Moles/Vol] 142 mmol/L Normal 137-145 [facility] Comment on above: Performed By: #### CMP #### [facility] [address] [place] [address] Dr. Genet Ballard Urea nitrogen [Mass/Vol] 16.0 mg/dL Normal 9.0-20.0 [facility] Comment on above: Performed By: #### CMP #### [facility] [address] [place] [address] Dr. Genet Ballard Urea nitrogen/Creati nine [Mass ratio] 17.8 mg/mg Normal [facility] Comment on above: Performed By: #### CMP #### [facility] [address] [place] [address] Dr. Genet Ballard HEPATITIS C VIRUS GENOTYPING , NONREFLEXon 12-14-2020 Hepatitis C Genotype 1a Normal [facility] Comment on above: Performed By: #### HCVGENE #### [facility] [address] [place] [address] Jeffrey Lazo Please note: Comment Normal [facility] Comment on above: Result Comment: This test was developed and its performance characteristics determined by [facility]. It has not been cleared or approved by the U.S. Food and Drug Administration. . The FDA has determined that such clearance or approval is not necessary. This test is used for clinical purposes. It should not be regarded as investigational or for research. Performed By: #### H CVGENE #### [facility] [address] [place] [address] Jeffrey Lazo HEP B SURFACE AGon HBsAg Screen Negative Normal Negative [facility] Comment on above: Performed By: #### HEPBSUR #### [facility] [address] [place] [address] Jeffrey Lazo HEPATITIS B SURFACE ANTIBODY , QUANTon 12-13-2020 Hepatitis B Surf AB Quant <3.1 Critically low Immunity>9.9 [facility] Comment on above: Result Comment: Status of Immunity Anti- HBs Level Inconsistent with Immunity 0.0 - 9.9 Consistent with Immunity >9.9 Performed By: #### H EPBSRF #### [facility] [address] [place] [address] Jeffrey Lazo HEPATITIS C ANTIBODYon 12-13 Hep C Virus Ab >11.0 Critically high 0.0-0.9 [facility] Comment on above: Result Comment: Negative: < 0.8 Indeterminate: 0.8 - 0.9 Positive: > 0.9 . The CDC recommends that a positive HCV antibody result be followed up with a HCV Nucleic Acid Amplification test (883079). Performed By: #### H CV #### [facility] [address] [place] [address] Jeffrey Lazo HEPATITIS C VIRUS (HCV) TONY T PCR (NON-Moreno 12-13-2020 HCV log10 6.524 log10 IU/mL Normal [facility] Comment on above: Performed By: #### HCVQNNG #### [facility] [address] [place] [address] Jeffrey Lazo Hepatitis C Quantitation [id number] IU/mL Normal [facility] Comment on above: Performed By: #### HCVQNNG #### [facility] [address] [place] [address] Jeffrey Lazo Test Information: Comment Normal [facility] Comment on above: Result Comment: The quantitative range o f this assay is 15 IU/mL to 100 million IU/mL. Performed By: #### H CVQNNG #### [facility] [address] [place] [address] Jeffreylindsay Lazo PROF 14(COMP METB)on 021 Albumin [Mass/Vol] 3.8 g/dL Normal 3.5-5.0 [facility] Comment on above: Performed By: #### CMP #### [facility] [address] [place] [address] Jeffrey Violet Albumin/Globuli n [Mass ratio] 0.9 {ratio} Normal [facility] Comment on above: Performed By: #### CMP #### [facility] [address] [place] [address] Jeffrey Violet ALP [Catalytic activity/Vol] 42 U/L Normal 38-126 [facility] Comment on above: Performed By: #### CMP #### [facility] [address] [place] [address] Jeffrey Violet ALT [Catalytic activity/Vol] 52 U/L Normal 21-72 [facility] Comment on above: Performed By: #### CMP #### [facility] [address] [place], [place] [address] Jeffrey Violet Anion gap [Moles/Vol] 13.7 mmol/L Normal [facility] Comment on above: Performed By: #### CMP #### [facility] [address] [place] [address] Jeffrey Violet AST [Catalytic activity/Vol] 29 U/L Normal 17-59 [facility] Comment on above: Performed By: #### CMP #### [facility] [address] [place], [place] [address] Jeffrey Violet Bilirubin [Mass/Vol] 0.9 mg/dL Normal 0.2-1.3 [facility] Comment on above: Performed By: #### CMP #### [facility] [address] [place] [address] Jeffrey Violet Calcium [Mass/Vol] 8.8 mg/dL Normal 8.4-10.2 [facility] Comment on above: Performed By: #### CMP #### [facility] [address] [id number] Jeffrey Violet Chloride [Moles/Vol] 102 mmol/L Normal 98-107 [facility] Comment on above: Performed By: #### CMP #### [facility] [address] [address] Jeffrey Violet CO2 [Moles/Vol] 27.3 mmol/L Normal 22.0-30.0 [facility] Comment on above: Performed By: #### CMP #### [facility] [address] [place] [address] Jeffrey Violet Creatinine [Mass/Vol] 0.97 mg/dL Normal 0.66-1.25 [facility] Comment on above: Performed By: #### CMP #### [facility] [address] [place] [address] Jeffrey Violet EGFR-AF SYRIAN >60 Normal >=60 [facility] Comment on above: Performed By: #### CMP #### [facility] [address] [place] [address] Jeffrey Violet EGFR-NON AF SYRIAN >60 Normal >=60 [facility] Comment on above: Performed By: #### CMP #### [facility] [address] [place] [address] Jfefrey Violet Globulin (S) [Mass/Vol] 4.0 g/dL Normal [facility] Comment on above: Performed By: #### CMP #### [facility] [address] [place] [address] Jeffrey Violet Glucose [Mass/Vol] 148 mg/dL Critically high 74-106 [facility] Comment on above: Performed By: #### CMP #### [facility] [address] [place] [address] Jeffrey Violet Potassium [Moles/Vol] 4.0 mmol/L Normal 3.4-5.0 [facility] Comment on above: Performed By: #### CMP #### [facility] [address] [place] [address] Jeffrey Violet Protein [Mass/Vol] 7.8 g/dL Normal 6.1-8.2 [facility] Comment on above: Performed By: #### CMP #### [facility] [address] [place] [address] Jeffrey Violet Sodium [Moles/Vol] 139 mmol/L Normal 137-145 [facility] Comment on above: Performed By: #### CMP #### [facility] [address] [place], [place] [address] Jeffrey Violet Urea nitrogen [Mass/Vol] 16.0 mg/dL Normal 9.0-20.0 [facility] Comment on above: Performed By: #### CMP #### [facility] [address] [place], [place] [address] Jeffrey Violet Urea nitrogen/Creati nine [Mass ratio] 16.5 mg/mg Normal [facility] Comment on above: Performed By: #### CMP #### [facility] [address] [place] [address] Jeffrey Clarkeen PROTIMEon 12-12-2020 INR Coag (PPP) [Relative time] 0.96 {INR} Normal [facility] Comment on above: Performed By: #### HCVQNNG #### [facility] [address] [place] [address] Dr. Genet Ballard INR GUIDELINES SEE BELOW Normal [facility] Comment on above: Result Comment: DESIRED INR: 2.0 - 3.0 C ONDITIONS NOT LISTED BELOW 2.5 - 3.5 FOR PROSTHETIC HEART VALVE REPLACEMENT 2.5 - 3.5 RECURRENT THROMBOSIS Performed By: #### H CVQNNG #### [facility] [address] [place] [address] Dr. Genet Ballard PT Coag (PPP) [Time] 10.5 s Normal 9.0-11.6 [facility] Comment on above: Performed By: #### HCVQNNG #### [facility] [address] [place] [address] Dr. Genet Ballard Vital Signs Date Time Vital Sign Value Performing Clinician Facility 07-18-2023 09:35-0500 Body height 185.42 cm Diamond Bear Other [facility] Other 07-18-2023 09:35-0500 Body mass index (BMI) [Ratio] 30.34 kg/m2 Diamond Marianela Other [facility] Other 07-18-2023 09:35-0500 Body temperature 99.3 [degF] Diamond Marianela Other [facility] Other 07-18-2023 09:35-0500 Body weight 104.33 kg Diamond Marianela Other [facility] Other 07-18-2023 09:35-0500 Diastolic blood pressure 84 mm[Hg] Diamond Marianela Other [facility] Other 07-18-2023 09:35-0500 Respiratory rate 18 /min Diamond Marianela Other [facility] Other 07-18-2023 09:35-0500 SaO2% (BldA) [Mass fraction] 96 % Diamond Marianela Other [facility] Other 07-18-2023 09:35-0500 Systolic blood pressure 140 mm[Hg] Diamond Marianela Other [facility] Other Encounters Encounter Date Encounter Type Care Provider Facility Start: 09-16-2023 End: 09-16-2023 ambulatory SHAIKH ERYN Not Available Start: 07-18-2023 End: 07-18-2023 ambulatory Diamond Bear Other [facility] Other Start: 07-18-2023 Office outpatient vi sit 15 minutes Diamond Bear [facility] Start: 04-30-2022 End: 04-30-2022 ambulatory Bg Perez Facility:[facility] Start: 04-30-2022 End: 04-30-2022 ambulatory MD Shaikh Elkins Work Phone: [facility] Work Phone: Start: 04-30-2022 End: 04-30-2022 Patient encounter procedure MD Shaikh Elkins Work Phone: [facility] [place] Start: 09-19-2021 End: 09-20-2021 ambulatory KIMBERLEY WALSH [...] of Treatment Date Care Activity Detail Author Juyke-6-vhwhiydexdh. tumor marker [Mass/volume] in Serum or Plasma [facility] Work Phone: Immunizations Immunization Date Immunization Notes Care Provider Luda romero 11-04-2020 Do not use COVID-19 Pfizer 2 dose Diamond Bear Other [facility] Other 10-29-2020 COVID-19 mRNA, Comirnaty (Pfizer) MD Shaikh Elkins Work Phone: [facility] 10-13-2020 COVID-19 mRNA Comirnatyobany (Pfizer) MD Shaikh Elkins Work Phone: [facility] Payers Date Payer Category Payer Self-pay [id number] 1958 Unknown [id number] 1955 Unknown [id number] 2.16.84 [id number] 1955 Unknown [id number] 2.16.84 [id number] 1955 Unknown [id number] 2.16.84 [id number] 1955 Unknown [id number] 2.16.84 [id number] 1955 Unknown [id number] 2.16.84 [id number] 1955 Unknown [id number] 2.16.84 [id number] Unknown [id number] 2.16.8 [id number] Unknown [id number] 2.16.8 [id number] Social History Date Type Detail Facility Tobacco smoking status OKIS Unknown if ever smoked [facility] Work Phone: Start: 1955 Sex Assigned At Male F [facility] Sex Assigned At Sex Assigned At Bir th [facility] Other Evaluation note 07-18-2023 Note Date & [...] physician if no improvement in 2-3 days [facility] Other Clinical Note 03-07-2021 Note Date & [...] the office for continued management of cirrhosis. [facility] Signed and Approved by: KIMBERLEY WALSH JR 03/07/2021 11:12:00 [facility] Evaluation note Note Date & Type Note Facility Evaluation note No assessment information availa [facility] Work Phone: History general Narrative - Reported Note Date & Type Note Facility History general Narrative - Reported Type Medical History hepatitis C [facility] Other Summary Purpose Family History No Family [...] section and content) DATE CREATED AUTHOR 09/21/2021 [facility] DATE CREATED AUTHOR AUTHOR'S ORGANIZ ATION 05/01/2022 [facility] DATE CREATED AUTHOR AUTHOR'S ORGANIZ ATION 09/23/2023 [facility] EP[employer] Care Teams (unrecognized sec [...] BE BASED ON THE PRIMARY CLINICAL RECORDS. [employer] [facility]. provides no warranty or guarantee of the accuracy or completeness of information in this document.
--- NOTE | 2023-11-04 08:13 | CT_ITS ---
[address] [address] Patient Name: STEFFI HIGHTOWER MRN: [id number] date: 1955 Sex: M Assigned Patient Location: CT Current Patient Location: Accession/Order Number: [id number] Exam Date: 11/04/2023 07:58 Report Date: 11/05/2023 07:25 At the request of: SHAIKH BRITTNI Procedure: CT abdomen wo/w con EXAMINATION: CT abdomen wo/w con HISTORY: Abnormal Ultrasound Of Liver R93.1 COMPARISON: 10/18/2023 TECHNIQUE: Axial, Coronal, and Sagittal images were created without and with non-ionic intravenous contrast material. Dose reduction techniques were achieved by using automated exposure control and/or adjustment of mA and/or kV according to patient size and/or use of iterative reconstruction technique. FINDINGS: LUNG BASES: No visible pulmonary or pleural disease. LIVER: Noncontrast exam demonstrates a subtle area of hyperdensity in the right hepatic lobe axial image #38, I favor artifact. Early arterial phase demonstrates multiple ill-defined areas of hypervascularity throughout both hepatic lobes corresponding to the ultrasound findings the largest area in the right hepatic lobe measuring 2.5 cm, axial image 33. These areas persist on portal venous phase with significant but not complete washout on delayed imaging BILIARY: 1.7 cm gallstone without cystitis PANCREAS: No lesion, fluid collection, ductal dilatation, or atrophy. SPLEEN: No enlargement or focal lesion. ADRENALS: No mass or enlargement. KIDNEYS: Left renal cortical hypodensities, nonenhancing, cyst. No hydronephrosis or focal mass BOWEL/MESENTERY: No visible mass, obstruction, or bowel wall thickening. Minimal stranding of the central mesentery, nonspecific. AORTA/VASCULAR: No aortic aneurysm or dissection. Moderate atherosclerosis RETROPERITONEUM: No mass or adenopathy. LYMPH NODES: Few scattered small to borderline mesenteric lymph nodes URINARY BLADDER: No visible focal wall thickening, lesion, or calculus. PELVIC ORGANS: No visible mass. Pelvic organs appropriate for patient age. ABDOMINAL WALL: No mass or hernia. BONES: No bony lesion or fracture. OTHER: Negative. CT/CT abdomen wo/w con IMPRESSION: Multiple areas of hypervascularity throughout the liver corresponding to the ultrasound findings. The enhancement pattern is nonspecific. In light of the patient's underlying hepatitis, consider regenerative nodules. Additional nonneoplastic, and neoplastic etiologies should be considered within the differential diagnosis Electronically authenticated by: KIMBERLEY LEPE Date: 11/05/2023 07:25
== END 2023-11-04 07:40 | disposition home or self-care (01) ==
LOC: CT 07:40
PROVIDERS: PCP Internal Medicine; Visit Provider Internal Medicine
DX: R93.2 Abnormal findings on diagnostic imaging of liver and biliary tract (principal)
CPT/HCPCS: 74170; Q9967

== ENCOUNTER 2023-11-06 15:08 | Outpatient (OUT) | payer OTHER, SELFPAY ==
[2023-11-07 04:09] LABS: CEA 1.7 ng/mL (0.0-4.7)
== END 2023-11-06 15:09 | disposition home or self-care (01) ==
LOC: LAB 15:11
PROVIDERS: PCP Internal Medicine; Visit Provider Internal Medicine
DX: R93.2 Abnormal findings on diagnostic imaging of liver and biliary tract (principal)
CPT/HCPCS: 36415; 82378

== ENCOUNTER 2024-03-25 09:07 | Outpatient (OUT) | payer MEDICARE, SELFPAY ==
[2024-03-25 10:12] LABS: Chol HDL Ratio 3.7; Cholesterol 177 mg/dL (<=200); HDL Cholesterol 48 mg/dL (40-60); Triglycerides 158 mg/dL (<=150); VLDL CHOLESTEROL 31.6 mg/dL
[2024-03-25 10:36] LABS: Estimated Average Glucose 266 mg/dL; Glycohemoglobin A1C 10.9 % (4.5-6.2)
== END 2024-03-25 09:08 | disposition home or self-care (01) ==
LOC: LAB 09:11
DX: R73.01 Impaired fasting glucose (principal); I10 Essential (primary) hypertension; B18.2 Chronic viral hepatitis C
CPT/HCPCS: 36415; 80061; 83036

== ENCOUNTER 2024-07-02 09:38 | Outpatient (OUT) | payer MEDICARE, SELFPAY ==
[2024-07-02 10:24] LABS: Creatinine Urine Random 129.52 mg/dL (20.00-300.00); Microalbum Creatinine Ratio Ur 33.1 mg/g (0.0-29.9); Microalbumin Urine Random 4.3 mg/dL (<=30.0)
[2024-07-02 11:02] LABS: Estimated Average Glucose 249 mg/dL; Glycohemoglobin A1C 10.3 % (4.5-6.2)
== END 2024-07-02 09:39 | disposition home or self-care (01) ==
LOC: LAB 09:40
DX: E11.9 Type 2 diabetes mellitus without complications (principal); I10 Essential (primary) hypertension
CPT/HCPCS: 36415; 82043; 82570; 83036

== ENCOUNTER 2024-11-02 10:04 | Outpatient (OUT) | payer MEDICARE, SELFPAY ==
[2024-11-02 10:32] LABS: Basophils Absolute Auto 0.1 10^3/uL (0.0-0.1); Eosinophils Absolute Auto 0.4 10^3/uL (0.0-0.7); Eosinophils Percent Auto 5.7 % (0.9-7.0); Hematocrit 45.4 % (42.0-54.0); Hemoglobin 15.4 g/dL (14.0-18.0); Immature Granulocytes Abs Auto 0.01 10^3/uL (0.00-0.03); Immature Granulocytes Pct Auto 0.2 % (0.0-0.5); Lymphocytes Absolute Auto 1.5 10^3/uL (1.2-3.8); Lymphocytes Percent Auto 24.6 % (20.5-60.0); Mean Corpuscular HGB Conc 33.9 g/dL (29.9-35.2); Mean Corpuscular Hemoglobin 30.6 pg (25.9-34.0); Mean Corpuscular Volume 90.3 fL (80.0-94.0); Mean Platelet Volume 11.1 fL (9.5-13.5); Monocytes Absolute Auto 0.5 10^3/uL (0.3-0.8); Monocytes Percent Auto 8.8 % (1.7-12.0); Neutrophils Absolute Auto 3.7 10^3/uL (1.4-6.5); Neutrophils Percent Auto 59.7 % (43.0-75.0); Platelet Count 227 10^3/uL (150-450); Red Blood Count 5.03 10^6/uL (4.70-6.10); Red Cell Distribution Width 12.7 % (11.0-15.0); White Blood Count 6.1 10^3/uL (4.0-11.0)
--- OUTSIDE RECORDS SUMMARY | 2024-11-02 10:32 | XMS_ITS | CCD ---
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 Name Role Phone KIMBERLEY WALSH JR Admitting Unavailable ZAMZAMD, SELBY Primary Care Unavailable KIMBERLEY WALSH JR Consulting Unavailable KIMBERLEY WALSH JR Attending Unavailable KIMBERLEY WALSH JR Attending Unavailable KIMBERLEY WALSH JR Admitting Unavailable FAWWAD, SELBY Primary Care Unavailable KIMBERLEY WALSH JR Consulting Unavailable KLEBER CERNAIKH Consulting Unavailable LULA BLANTON Consulting Unavailable KIMBERLEY WALSH JR Attending Unavailable ZAMZAMD, SELBY Primary Care Unavailable KIMBERLEY WALSH JR Admitting Unavailable FAWWAD, SELBY Primary Care Unavailable KIMBERLEY WALSH JR Admitting Unavailable KIMBERLEY WALSH JR Consulting Unavailable KIMBERLEY WALSH JR Attending Unavailable FAWWAD, SELBY Primary Care Unavailable FAWWAD, SELBY Consulting Unavailable ERYN, SELBY Attending Unavailable ERYN, SELBY Admitting Unavailable MD Bg Perez Attending Provider [phone] MD Pat Cerna Primary Care Provider Bg Perez Attending Unavailable Bg Perez Admitting Unavailable Eryn, Primary Care Unavailable Diamond Bear Unavailable Paolo Paz MD Primary Care Provider Justen WEBLOGIC DEVELOPER, Elham Unavailable Justen WEBLOGIC DEVELOPER, Elham Unavailable ELHAM CAMPUZANO Attending UnavailJOANNE Encinas Attending Unavailable ELHAM CAMPUZANO Attending Unavailabl ELHAM Soto Attending Heike e Medications Current Medications Medication Drug Class(es) Dates Sig (Normalized) Sig (Original) Ascorbic Acid (1 source) Vitamin C Vitamin C Active Blood Glucose Monitoring Suppl (D-Care Glucometer) w/Device kit (15 sources) Start: 07-24-2024 Blood Glucose Monitoring Suppl (D-Care Glucometer) w/Device kit Indications: Type 2 diabetes mellitus without complication, without long-term current use of insulin 1 each Daily 1 kit 07/24/2024 Active Start: 07-24-2024 Blood Glucose Monitoring Suppl (D-Care Glucometer) w/Device kit Indications: Type 2 diabetes mellitus without complication, without long-term current use of insulin (CMS/HCC) 1 each Daily 1 kit 07/24/2024 Active Start: 06-17-2024 End: 07-22-[address] (D-Care Glucometer) w/Device kit Indications: Type 2 diabetes mellitus without complication, without long-term current use of insulin (CMS/HCC) 1 each Daily 1 kit 06/17/2024 07/22/2024 Discontinued (Reorder) Start: 06-17-2024 Blood Glucose Monitoring Suppl (D-Care Glucometer) w/Device kit Indications: Type 2 diabetes mellitus without complication, without long-term current use of insulin (CMS/HCC) 1 each Daily 1 kit 06/17/2024 Active busPIRone hydrochloride 5 mg oral tablet (20 sources) Start: 03-20-2024 End: 03-20-2025 take 1 tablet by mouth in the morning busPIRone (Buspar) 5 MG tablet Indications: Anxiety, generalized (CMS/HCC) Take 1 tablet (5 mg) by mouth in the morning and 1 tablet (5 mg) before bedtime. 180 tablet 1 10/26/2024 01/24/2025 Active Continuous Glucose Asset Protection Detective (Dexcom G7 Asset Protection Detective) device (6 sources) Start: 09-14-2024 Continuous Glu cose Asset Protection Detective (Dexcom G7 Asset Protection Detective) device Indications: Type 2 diabetes mellitus without complication, without long-term current use of insulin 1 each continuously 1 each 09/14/2024 Active Start: 09-14-2024 Continuous Glu cose Asset Protection Detective (Dexcom G7 Asset Protection Detective) device Indications: Type 2 diabetes mellitus without complication, without long-term current use of insulin (CMS/HCC) 1 each continuously 1 each 09/14/2024 Active Continuous Glucose Sensor (Dexcom G7 Sensor) mis (9 sources) Start: 10-26-2024 End: 11-25-2024 Continuous Glucose Sensor (D excom G7 Sensor) mis Indications: Type 2 diabetes mellitus without complication, without long-term current use of insulin 1 each Daily Change sensor every 10 days 3 each 11 10/26/2024 11/25/2024 Active Start: 10-05-2024 End: 10-26-2024 Continuous Glucose Sensor (D excom G7 Sensor) mis Indications: Type 2 diabetes mellitus without complication, without long-term current use of insulin 1 each Daily Change sensor every 10 days 3 each 11 10/05/2024 10/26/2024 Discontinued (Reorder) Start: 10-05-2024 End: 11-04-2024 Continuous Glucose Sensor (D excom G7 Sensor) mis Indications: Type 2 diabetes mellitus without complication, without long-term current use of insulin 1 each Daily Change sensor every 10 days 3 each 11 10/05/2024 11/04/2024 Active Start: 09-27-2024 End: 10-27-2024 Continuous Glucose Sensor (D excom G7 Sensor) [facility] Indications: Type 2 diabetes mellitus without complication, without long-term current use of insulin (CMS/[facility]) 1 each Daily Change sensor every 10 days 3 each 11 09/27/2024 10/27/2024 Active Start: 09-14-2024 End: 09-27-2024 Continuous Glucose Sensor (D excom G7 Sensor) [facility] Indications: Type 2 diabetes mellitus without complication, without long-term current use of insulin (CMS/HCC) 1 each continuously 3 each 3 09/14/2024 09/27/2024 Discontinued (Reorder) Start: 09-14-2024 Continuous Glu cose Sensor (Dexcom G7 Sensor) mis Indications: Type 2 diabetes mellitus without complication, without long-term current use of insulin (CMS/HCC) 1 each continuously 3 each 3 09/14/2024 Active fluticasone propionate 0.05 mg/actuat metered dose nasal spray (20 sources) Corticosteroid Start: 03-18-2024 End: 10-26-2025 take 1-2 spray(s) nasal route once daily fluticasone (Flonase) 50 MCG/ACT nasal spray Indications: Seasonal allergies Administer 1-2 sprays into each nostril Daily Shake gently. Before first use, prime pump. After use, clean tip and replace cap. 48 g 1 10/26/2024 10/26/2025 Active glipiZIDE 5 mg oral tablet (8 sources) Sulfonylurea Start: 09-14-2024 End: 09-14-2025 take 1 tablet by mouth in the morning glipiZIDE (Glucotrol) 5 MG tablet Indications: Type 2 diabetes mellitus without complication, without long-term current use of insulin Take 1 tablet (5 mg) by mouth in the morning and 1 tablet (5 mg) in the evening. Take before meals. 180 tablet 10/26/2024 01/24/2025 Active loratadine 10 mg oral capsule (20 sources) Start: 03-18-2024 End: 01-24-2025 take 1 capsule by mouth once daily Loratadine 10 MG capsule Indications: Seasonal allergies Take 10 mg by mouth Daily 90 capsule 1 10/26/2024 01/24/2025 Active 24 hr metFORMIN hydrochloride 500 mg extended release oral tablet (20 sources) Biguanide Start: 03-26-2024 End: 03-26-2025 take 1 tablet by mouth every twenty-four hours at mealtime metFORMIN XR (Glucophage-XR) 500 MG 24 hr tablet Indications: Type 2 diabetes mellitus without complication, without long-term current use of insulin Take 1 tablet (500 mg) by mouth in the evening. Take with meals Do not crush, chew, or split. 90 tablet 1 10/26/2024 01/24/2025 Active Potassium (1 source) Potassium Active vitamin B12 (1 source) Vitamin B12 Vitamin B12 Acti ve Vitamin D3 (1 source) Vitamin D3 Activ e Completed/Discontinued Medications Medication Drug Class(es) Dates Sig (Normalized) Sig (Original) folic acid 1 mg oral tablet (20 sources) Start: 01-31-2024 End: 01-24-2025 take 1 tablet by mouth once daily folic acid (Folvite) 1 MG tablet Indications: Other cirrhosis of liver TAKE 1 TABLET BY MOUTH DAILY 30 tablet 2 08/18/2024 10/26/2024 Discontinued (Reorder) Folic Acid Activ e furosemide 20 mg oral tablet (20 sources) Loop Diuretic Start: 09-16-2023 End: 01-24-2025 take 1 tablet by mouth once daily furosemide (Lasix) 20 MG tablet Indications: Primary hypertension (CMS/HCC) , Other cirrhosis of liver TAKE 1 TABLET(20 MG) BY MOUTH DAILY 90 tablet 08/18/2024 10/26/2024 Discontinued (Reorder) Furosemide Activ e semaglutide 7 mg oral tablet (7 sources) Start: 07-08-2024 End: 07-08-2025 take 1 tablet by mouth before mealtime semaglutide (Rybelsus) 7 MG tablet Indications: Type 2 diabetes mellitus without complication, without long-term current use of insulin (CMS/HCC) Take 1 tablet (7 mg) by mouth in the morning. Take before meals. 30 tablet 11 07/08/2024 09/14/2024 Discontinued (Cost of medication) spironolactone 50 mg oral tablet (20 sources) Aldosterone Antagonist Start: 09-16-2023 End: 10-26-2024 take 1 tablet by mouth once daily spironolactone (Aldactone) 50 MG tablet Indications: Primary hypertension (CMS/HCC) , Other cirrhosis of liver TAKE 1 TABLET(50 MG) BY MOUTH DAILY 90 tablet 08/18/2024 10/26/2024 Discontinued (Reorder) Spironolactone N ot-Taking/PRN Problems Active Problems Problem Classification Problem Date Documented Date Episodic/Chronic Anxiety disorders (20 sources) Generalized anxiety disorder; Translations: [Generalized anxiety disorder] Onset: 03-20-2024 03-20-2024 Chronic Diabetes mellitus without complication (20 sources) Type 2 diabetes mellitus without complication; Translations: [Type 2 diabetes mellitus without complications] Onset: 04-22-2024 04-22-2024 Chronic Essential hypertension (20 sources) Essential hypertension; Translations: [Essential (primary) hypertension] Onset: 09-16-2023 05-03-2024 Chronic Hepatitis (20 sources) Chronic viral hepatitis C; Translations: [Chronic hepatitis C] Onset: 12-12-2020 Chronic Hepatitis (6 sources) Unspecified viral hepatitis C without hepatic coma; Translations: [Viral hepatitis C] Onset: 03-12-2021 Episodic Influenza (1 source) Influenza due to other identified influenza virus with other respiratory manifestations Episodic Other liver diseases (3 sources) Unspecified cirrhosis of liver; Translations: [Cirrhotic] Onset: 03-12-2021 Chronic Other liver diseases (20 sources) Cirrhosis of liver; Translations: [Other cirrhosis of liver] Onset: 09-16-2023 05-03-2024 Chronic Other screening for suspected conditions (not mental disorders or infectious disease) (20 sources) Encounter for screening for malignant neoplasm of colon; Translations: [Ultrasonography of liver abnormal] Onset: 03-07-2021 Episodic Other upper respiratory disease (20 sources) Seasonal allergy; Translations: [Other seasonal allergic rhinitis] Onset: 03-18-2024 03-18-2024 Chronic Past or Other Problems Problem Classification Problem Date Documented Da te Episodic/Chronic Diabetes mellitus without complication (20 sources) Hyperglycemia; Translations: [Impaired fasting glucose] Onset: 03-18-2024 03-18-2024 Episodic Unclassified (1 source) Contact with and (suspected) exposure to covid-19 Z20.822 Results Test Name Value Interpretation Reference Range Facility HbA1c (Bld) [Mass fraction]o n 10-26-2024 Interpretation and review of laboratory results Abnormal [facility] - Hematology and Cell countson 10-26-2024 HbA1c (Bld) [Mass fraction] 8.00 % [facility] MICROALB CREAT RATIO RAN DOMon 07-02-2024 CREATININE URINE RANDOM 129.52 mg/dL 20.00 - 300.00 mg/dL [facility] Interpretation and review of laboratory results Abnormal [facility] MICROALBUM CREATININE RATIO UR 33.1 mg/g High 0.0 - 29.9 mg/g [facility] Comment on above: NO MICROALBUMINURIA 0-29 MG/G CLINICAL MICROALBUMINURIA 30-300 MG/G MACROALBUMINURIA >300 MG/G MICROALBUMIN URINE RANDOM 4.3 mg/dL NINF - 30.0 mg/dL [facility] ALL LIPID PROFILE (FASTING)o n 03-25-2024 CHOL HDL RATIO 3.7 [facility] Comment on above: 3.3 - 4.4 LOW RISK 4.4 - 7.1 AVERAGE RISK 7.1 - 11.0 MODERATE RISK >11.0 HIGH RISK Cholesterol [Mass/Vol] 177 mg/dL NINF - 200 mg/dL [facility] Cholesterol in HDL [Mass/Vol] 48 mg/dL 40 - 60 mg/dL [facility] Comment on above: > or =60 mg/dl - LOW CARDIOVASCULAR RISK <40 mg/dl - HIGH CARDIOVASCULAR RISK Interpretation and review of laboratory results Abnormal [facility] Magnesium [Mass/Vol] 98.0 mg/dL [facility] Comment on above: <100 mg/dl OPTIMAL 100-129 mg/dl NEAR OR ABOVE OPTIMAL 130-159 mg/dl BORDERLINE HIGH 160-189 mg/dl HIGH >190 mg/dl VERY HIGH Magnesium [Mass/Vol] 31.6 mg/dL [facility] Triglyceride [Mass/Vol] 158 mg/dL High NINF - 150 mg/dL [facility] COVID + FLU Quick Testingon 07-18-2023 SARS-CoV-2 (COVID-19) RNA HARDEEP+probe Ql (Unsp spec) Negative [facility] Other COVID + FLU Quick Testing Positive [facility] Other COVID + FLU Quick Testing Negative [facility] Other AFP Tumor Marker, Serumon AFP Tumor Marker, Serum 0.9 ng/mL Normal 0.0-8.4 [facility] Comment on above: Order Comment: Reaso n for Exam Cirrhosis Result Comment: [facility] Electrochemiluminescence Immunoassay (ECLIA) Values obtained with different assay methods or kits cannot be used interchangeably. Results cannot be interpreted as absolute evidence of the presence or absence of malignant disease. This test is not interpretable in females. Performed at: [facility] [address] [id number] Rail Tractor Operator: Jose Alberto Alegria PhD, Phone: [phone] PERFORMED BY: [place] [address] PATHOLOGIST REGIONAL MAINTENANCE MANAGER NORM SKINNER M.D. Performed By: #### A FP #### [facility] , liveron 04-30-2022 liver [facility] Main [place] [address] [place] [address] Ultrasound Report Signed Patient: Herbert Campbell MR#: [id number] : 1955 Acct:[id number] Age/Sex: 67 / M ADM Date: 04/30/22 Loc: Room: Type: [facility] Attending Dr: Bg Perez MD Ordering [...] Xavi Rincon M.D.04/30/2022 4:21 PM Dictation Location: [place] [address] Tech: Roxanne Tellez Transcribed By: STAR 04/30/221620 Dictated By: Xavi Rincon DO 04/30/22 161 Signed By: 04/30/22 162 [facility] HEPATITIS C VIRUS (HCV) TONY T PCR (NON-[place] 09-21-2021 HCV log10 Normal [facility] Comment on above: Performed By: #### H CVQNNG #### [facility] [address] [place] [address] Dr. Genet Ballard Hepatitis C Quantitation Not detected Normal [facility] Comment on above: Performed By: #### H CVQNNG #### [facility] [address] [address] [address] Genet Ballard Test Information: Comment Normal [facility] Comment on above: Result Comment: The quantitative range of this assay is 15 IU/mL to 100 million IU/mL. Performed By: #### H CVQNNG #### [facility] [address] [place] [address] Dr. Genet Ballard HEPATITIS C VIRUS (HCV) TONY T PCR (NON-[place] 05-09-2021 HCV log10 Normal [facility] Comment on above: Performed By: #### H CVQNNG #### [facility] [address] [place] [address] Dr. Genet Ballard Hepatitis C Quantitation Not detected Normal [facility] Comment on above: Performed By: #### H CVQNNG #### [facility] [address] [place] [address] Dr. Genet Ballard Test Information: Comment Normal [facility] Comment on above: Result Comment: The quantitative range of this assay is 15 IU/mL to 100 million IU/mL. Performed By: #### H CVQNNG #### [facility] [address] [place] [address] Dr. Genet Ballard CBC AUTO DIFFon 05-07-2021 BASO # 0.1 103/ul Normal 0.0-0.1 [facility] Comment on above: Performed By: #### C BC #### [facility] [address] [place] [address] Dr. Genet Ballard Basophils/100 WBC (Bld) 1.1 % Normal 0.2-2.0 [facility] Comment on above: Performed By: #### C BC #### [facility] [address] [place] [address] Dr. Genet Ballard EO # 0.2 103/ul Normal 0.0-0.7 [facility] Comment on above: Performed By: #### C BC #### [facility] [address] [place] [address] Dr. Genet Ballard Eosinophils/100 WBC (Bld) 2.8 % Normal 0.9-7.0 [facility] Comment on above: Performed By: #### C BC #### [facility] [address] [place] [address] Dr. Genet Ballard Erythrocyte distribution width (RBC) [Ratio] 13.0 % Normal 11.0-15.0 [facility] Comment on above: Performed By: #### C BC #### [facility] [address] [place] [address] Dr. Genet Ballard Hematocrit (Bld) [Volume fraction] 45.3 % Normal 42.0-54.0 [facility] Comment on above: Performed By: #### C BC #### [facility] [address] [place] [address] Dr. Genet Ballard Hemoglobin (Bld) [Mass/Vol] 15.1 g/dL Normal 14.0-18.0 [facility] Comment on above: Performed By: #### C BC #### [facility] [address] [place] [address] Dr. Genet Ballard IG # 0.01 10e3/ul Normal 0.00-0.03 [facility] Comment on above: Performed By: #### C BC #### [facility] [address] [place] [address] Dr. Genet Ballard IG % 0.2 % Normal 0.0-0.5 [facility] Comment on above: Performed By: #### C BC #### [facility] [address] [place] [address] Dr. Genet Ballard LYMPH # 2.4 103/ul Normal 1.2-3.8 [facility] Comment on above: Performed By: #### C BC #### [facility] [address] [place] [address] Dr. Genet Ballard Lymphocytes/100 WBC (Bld) 37.4 % Normal 20.5-60.0 [facility] Comment on above: Performed By: #### C BC #### [facility] [address] [place] [address] Dr. Genet Ballard MANUAL DIFF REQ NO Normal [facility] Comment on above: Performed By: #### C BC #### [facility] [address] [place] [address] Dr. Genet Ballard MCH (RBC) [Entitic mass] 30.0 pg Normal 25.9-34.0 [facility] Comment on above: Performed By: #### C BC #### [facility] [address] [place] [address] Dr. Genet Ballard MCHC (RBC) [Mass/Vol] 33.3 g/dL Normal 29.9-35.2 [facility] [place] Comment on above: Performed By: #### C BC #### [facility] [address] [place] [address] Dr. Genet Ballard MCV (RBC) [Entitic vol] 90.1 fL Normal 80.0-94.0 [facility] Comment on above: Performed By: #### C BC #### [facility] [address] [address] [address] Genet Ballard MONO # 0.6 103/ul Normal 0.3-0.8 [facility] Comment on above: Performed By: #### C BC #### [facility] [address] [place] [address] Dr. Genet Ballard Monocytes/100 WBC (Bld) 9.7 % Normal 1.7-12.0 [facility] Comment on above: Performed By: #### C BC #### [facility] [address] [place] [address] Dr. Genet Ballard NEUT # 3.1 103/ul Normal 1.4-6.5 [facility] Comment on above: Performed By: #### C BC #### [facility] [address] [place] [address] Dr. Genet Ballard Neutrophils/100 WBC (Bld) 48.8 % Normal 43.0-75.0 [facility] Comment on above: Performed By: #### C BC #### [facility] [address] [place] [address] Dr. Genet Ballard Platelet mean volume (Bld) [Entitic vol] 11.8 fL Normal 9.5-13.5 [facility] Comment on above: Performed By: #### C BC #### [facility] [address] [place] [address] Dr. Genet Ballard PLT 231 103/ul Normal 150-450 [facility] Comment on above: Performed By: #### C BC #### [facility] [address] [place] [address] Dr. Genet Ballard RBC 5.03 106/ul Normal 4.70-6.10 [facility] Comment on above: Performed By: #### C BC #### [facility] [address] [place] [address] Dr. Genet Ballard WBC 6.4 103/ul Normal 4.0-11.0 [facility] Comment on above: Performed By: #### C BC #### [facility] [address] [place] [address] Dr. Genet Ballard PROF 14(COMP METB)on 021 Albumin [Mass/Vol] 4.1 g/dL Normal 3.5-5.0 [facility] Comment on above: Performed By: #### C MP #### [facility] [address] [place] [address] Dr. Genet Ballard Albumin/Globulin [Mass ratio] 1.1 {ratio} Normal [facility] Comment on above: Performed By: #### C MP #### [facility] [address] [place] [address] Dr. Genet Ballard ALP [Catalytic activity/Vol] 38 U/L Normal 38-126 [facility] Comment on above: Performed By: #### C MP #### [facility] [address] [place] [address] Dr. Genet Ballard ALT [Catalytic activity/Vol] 23 U/L Normal 21-72 [facility] Comment on above: Performed By: #### C MP #### [facility] [address] [place] [address] Dr. Genet Ballard Anion gap [Moles/Vol] 11.1 mmol/L Normal [facility] Comment on above: Performed By: #### C MP #### [facility] [address] [place] [address] Dr. Genet Ballard AST [Catalytic activity/Vol] 20 U/L Normal 17-59 [facility] Comment on above: Performed By: #### C MP #### [facility] [address] [place] [address] Dr. Genet Ballard Bilirubin [Mass/Vol] 0.9 mg/dL Normal 0.2-1.3 [facility] Comment on above: Performed By: #### C MP #### [facility] [address] [address] [address] Genet Ballard Calcium [Mass/Vol] 9.4 mg/dL Normal 8.4-10.2 [facility] Comment on above: Performed By: #### C MP #### [facility] [address] [address] [address] Genet Ballard Chloride [Moles/Vol] 104 mmol/L Normal 98-107 [facility] Comment on above: Performed By: #### C MP #### [facility] [address] [address] [address] Genet Ballard CO2 [Moles/Vol] 31.4 mmol/L Critically high 22.0-30.0 [facility] Comment on above: Performed By: #### C MP #### [facility] [address] [address] [address] Genet Ballard Creatinine [Mass/Vol] 0.90 mg/dL Normal 0.66-1.25 [facility] Comment on above: Performed By: #### C MP #### [facility] [address] [address] [address] Genet Ballard EGFR-AF GUATEMALAN >60 Normal >=60 [facility] Comment on above: Performed By: #### C MP #### [facility] [address] [address] [address] Genet Ballard EGFR-NON AF GUATEMALAN >60 Normal >=60 [facility] Comment on above: Performed By: #### C MP #### [facility] [address] [address] [address] Genet Ballard Globulin (S) [Mass/Vol] 3.8 g/dL Normal [facility] Comment on above: Performed By: #### C MP #### [facility] [address] [place] [address] Dr. Genet Ballard Glucose [Mass/Vol] 119 mg/dL Critically high 74-106 [facility] Comment on above: Performed By: #### C MP #### [facility] [address] [address] [address] Genet Ballard Potassium [Moles/Vol] 4.5 mmol/L Normal 3.4-5.0 [facility] Comment on above: Performed By: #### C MP #### [facility] [address] [place] [address] Dr. Genet Ballard Protein [Mass/Vol] 7.9 g/dL Normal 6.1-8.2 [facility] [place] Comment on above: Performed By: #### C MP #### [facility] [address] [place] [address] Dr. Genet Ballard Sodium [Moles/Vol] 142 mmol/L Normal 137-145 [facility] [place] Comment on above: Performed By: #### C MP #### [facility] [address] [place] [address] Dr. Genet Ballard Urea nitrogen [Mass/Vol] 16.0 mg/dL Normal 9.0-20.0 [facility] [place] Comment on above: Performed By: #### C MP #### [facility] [address] [place] [address] Dr. Genet Ballard Urea nitrogen/Creatini ne [Mass ratio] 17.8 mg/mg Normal [facility] [place] Comment on above: Performed By: #### C MP #### [facility] [address] [place] [address] Dr. Genet Ballard HEPATITIS C VIRUS GENOTYPING , NONREFLEXon 12-14-2020 Hepatitis C Genotype 1a Normal [facility] [place] Comment on above: Performed By: #### H CVGENE #### [facility] [address] [place] [address] Jeffrey Lazo Please note: Comment Normal [facility] Comment on above: Result Comment: This test was developed and its performance characteristics determined by [facility]. It has not been cleared or approved by the U.S. Food and Drug Administration. . The FDA has determined that such clearance or approval is not necessary. This test is used for clinical purposes. It should not be regarded as investigational or for research. Performed By: #### H CVGENE #### [facility] [address] [place] [address] Jeffrey Lazo HEP B SURFACE AGon HBsAg Screen Negative Normal Negative [facility] [place] Comment on above: Performed By: #### H EPBSUR #### [facility] [address] [place] [address] Jeffrey Lazo HEPATITIS B SURFACE ANTIBODY , QUANTon 12-13-2020 Hepatitis B Surf AB Quant <3.1 Critically low Immunity>9. 9 [facility] Comment on above: Result Comment: Stat us of Immunity Anti-HBs Level Inconsistent with Immunity 0.0 - 9.9 Consistent with Immunity >9.9 Performed By: #### H EPBSRF #### [facility] [address] [place] [address] Jeffrey Lazo HEPATITIS C ANTIBODYon 12-13 Hep C Virus Ab >11.0 Critically high 0.0-0.9 [facility] Comment on above: Result Comment: Nega tive: < 0.8 Indeterminate: 0.8 - 0.9 Positive: > 0.9 . The CDC recommends that a positive HCV antibody result be followed up with a HCV Nucleic Acid Amplification test (775082). Performed By: #### H CV #### [facility] [address] [place] [address] Jeffrey Lazo HEPATITIS C VIRUS (HCV) TONY T PCR (NON-[place] 12-13-2020 HCV log10 6.524 log10 IU/mL Normal [facility] Comment on above: Performed By: #### H CVQNNG #### [facility] [address] [place] [address] Jeffrey Lazo Hepatitis C Quantitation [id number] IU/mL Normal [facility] [place] Comment on above: Performed By: #### H CVQNNG #### [facility] [address] [place] [address] Jeffrey Lazo Test Information: Comment Normal [facility] Comment on above: Result Comment: The quantitative range of this assay is 15 IU/mL to 100 million IU/mL. Performed By: #### H CVQNNG #### [facility] [address] [place] [address] Jeffreylindsay Clarkeen PROF 14(COMP METB)on 021 Albumin [Mass/Vol] 3.8 g/dL Normal 3.5-5.0 [facility] Comment on above: Performed By: #### C MP #### [facility] [address] [place], [place] [id number] Jeffrey Violet Albumin/Globulin [Mass ratio] 0.9 {ratio} Normal [facility] Comment on above: Performed By: #### C MP #### [facility] [address] [place], [place] [id number] Jeffrey Violet ALP [Catalytic activity/Vol] 42 U/L Normal 38-126 [facility] Comment on above: Performed By: #### C MP #### [facility] [address] [place] [address] Jeffrey Violet ALT [Catalytic activity/Vol] 52 U/L Normal 21-72 [facility] Comment on above: Performed By: #### C MP #### [facility] [address] [place], [place] [id number] Jeffrey Violet Anion gap [Moles/Vol] 13.7 mmol/L Normal [facility] Comment on above: Performed By: #### C MP #### [facility] [address] [place], [place] [id number] Jeffrey Violet AST [Catalytic activity/Vol] 29 U/L Normal 17-59 [facility] Comment on above: Performed By: #### C MP #### [facility] [address] [place], [place] [id number] Jeffrey Violet Bilirubin [Mass/Vol] 0.9 mg/dL Normal 0.2-1.3 [facility] Comment on above: Performed By: #### C MP #### [facility] [address] [place], [place] [id number] Jeffrey Violet Calcium [Mass/Vol] 8.8 mg/dL Normal 8.4-10.2 [facility] Comment on above: Performed By: #### C MP #### [facility] [address] [place], [place] [id number] Jeffrey Violet Chloride [Moles/Vol] 102 mmol/L Normal 98-107 [facility] Comment on above: Performed By: #### C MP #### [facility] [address] [address] Jeffrey Violet CO2 [Moles/Vol] 27.3 mmol/L Normal 22.0-30.0 [facility] Comment on above: Performed By: #### C MP #### [facility] [address] [address] Jeffrey Violet Creatinine [Mass/Vol] 0.97 mg/dL Normal 0.66-1.25 [facility] Comment on above: Performed By: #### C MP #### [facility] [address] [place] [address] Jeffrey Violet EGFR-AF GUATEMALAN >60 Normal >=60 [facility] Comment on above: Performed By: #### C MP #### [facility] [address] [place] [address] Jeffrey Violet EGFR-NON AF GUATEMALAN >60 Normal >=60 [facility] Comment on above: Performed By: #### C MP #### [facility] [address] [place] [address] Jeffrey Violet Globulin (S) [Mass/Vol] 4.0 g/dL Normal [facility] Comment on above: Performed By: #### C MP #### [facility] [address] [place] [address] Jeffrey Violet Glucose [Mass/Vol] 148 mg/dL Critically high 74-106 [facility] Comment on above: Performed By: #### C MP #### [facility] [address] [place] [address] Jeffrey Violet Potassium [Moles/Vol] 4.0 mmol/L Normal 3.4-5.0 [facility] Comment on above: Performed By: #### C MP #### [facility] [address] [place] [address] Jeffrey Violet Protein [Mass/Vol] 7.8 g/dL Normal 6.1-8.2 [facility] Comment on above: Performed By: #### C MP #### [facility] [address] [place], [place] [id number] Jeffrey Violet Sodium [Moles/Vol] 139 mmol/L Normal 137-145 [facility] Comment on above: Performed By: #### C MP #### [facility] [address] [place], [place] [id number] Jeffrey Violet Urea nitrogen [Mass/Vol] 16.0 mg/dL Normal 9.0-20.0 [facility] [place] Comment on above: Performed By: #### C MP #### [facility] [address] [place], [place] [id number] Jeffrey Violet Urea nitrogen/Creatini ne [Mass ratio] 16.5 mg/mg Normal [facility] [place] Comment on above: Performed By: #### C MP #### [facility] [address] [place] [address] Jeffrey Violet PROTIMEon 12-12-2020 INR Coag (PPP) [Relative time] 0.96 {INR} Normal [facility] [place] Comment on above: Performed By: #### H CVQNNG #### [facility] [address] [place] [address] Dr. Genet Ballard INR GUIDELINES SEE BELOW Normal [facility] Comment on above: Result Comment: CHANTAL RED INR: 2.0 - 3.0 CONDITIONS NOT LISTED BELOW 2.5 - 3.5 FOR PROSTHETIC HEART VALVE REPLACEMENT 2.5 - 3.5 RECURRENT THROMBOSIS Performed By: #### H CVQNNG #### [facility] [address] [place] [address] Dr. Genet Ballard PT Coag (PPP) [Time] 10.5 s Normal 9.0-11.6 [facility] [place] Comment on above: Performed By: #### H CVQNNG #### [facility] [address] [place] [address] Dr. Genet Ballard Vital Signs Date Time Vital Sign Value Performing Clinician Facility 10-26-2024 [id number] Body mass index (BMI) [Ratio] 29.29 kg/m2 Joanne Vargas [employer] DEVELOPER Work Phone: [facility] 10-26-2024 13:03-0400 Body temperature 98.1 [degF] Joanne Vargas WEBLOGIC DEVELOPER Work Phone: [facility] 10-26-2024 13:03-0400 Body weight 100.7 kg Joanne Vargas [employer]BL[employer]IC DEVELOPER Work Phone: [facility] 10-26-2024 13:03-0400 Diastolic blood pressure 76 mm[Hg] Joanne Rogersz [employer]IC DEVELOPER Work Phone: [facility] 10-26-2024 13:03-0400 Heart rate 71 /min Joanne Rogersz [employer]BL[employer]IC DEVELOPER Work Phone: [facility] 10-26-2024 13:03-0400 Respiratory rate 18 /min Joanne Vargas WEBLOGIC DEVELOPER Work Phone: [facility] 10-26-2024 13:03-0400 SaO2% (BldA) [Mass fraction] 96 % Joanne Vargas [employer]BLOGIC DEVELOPER Work Phone: [facility] 10-26-2024 13:03-0400 Systolic blood pressure 132 mm[Hg] Joanne Rogersz WEBLOGIC DEVELOPER Work Phone: [facility] 09-14-2024 14:45-0500 Body height 185.4 cm Elham Campuzano WEBLOGIC DEVELOPER Work Phone: [facility] 09-14-2024 14:45-0500 Body mass index (BMI) [Ratio] 29.69 kg/m2 Elham Campuzano [employer]IC DEVELOPER Work Phone: [facility] 09-14-2024 14:45-0500 Body temperature 97.3 [degF] Elham Campuzano WEBLOGIC DEVELOPER Work Phone: [facility] 09-14-2024 14:45-0500 Body weight 102.06 kg Elham Campuzano WEBLOGIC DEVELOPER Work Phone: [facility] 09-14-2024 14:45-0500 Diastolic blood pressure 88 mm[Hg] Elham Campuzano WEBLOGIC DEVELOPER Work Phone: [facility] 09-14-2024 14:45-0500 Heart rate 67 /min Elham Campuzano WEBLOGIC DEVELOPER Work Phone: [facility] 09-14-2024 14:45-0500 Respiratory rate 16 /min Elham Campuzano WEBLOGIC DEVELOPER Work Phone: [facility] 09-14-2024 14:45-0500 SaO2% (BldA) [Mass fraction] 96 % Elham Campuzano WEBLOGIC DEVELOPER Work Phone: [facility] 09-14-2024 14:45-0500 Systolic blood pressure 148 mm[Hg] Elham Campuzano WEBLOGIC DEVELOPER Work Phone: [facility] 06-17-2024 13:58-0500 Body height 185.4 cm Elham Campuzano WEBLOGIC DEVELOPER Work Phone: [facility] 06-17-2024 13:58-0500 Body mass index (BMI) [Ratio] 29.49 kg/m2 Elham Campuzano [employer]BL[employer]IC DEVELOPER Work Phone: [facility] 06-17-2024 13:58-0500 Body temperature 96.69 [degF] Elham Campuzano WEBLOGIC DEVELOPER Work Phone: [facility] 06-17-2024 13:58-0500 Body weight 101.38 kg Elham Campuzano WEBLOGIC DEVELOPER Work Phone: [facility] 06-17-2024 13:58-0500 Diastolic blood pressure 78 mm[Hg] Elham Campuzano WEBLOGIC DEVELOPER Work Phone: [facility] 06-17-2024 13:58-0500 Heart rate 72 /min Elham Campuzano WEBLOGIC DEVELOPER Work Phone: [facility] 06-17-2024 13:58-0500 Respiratory rate 16 /min Elham Campuzano WEBLOGIC DEVELOPER Work Phone: [facility] 06-17-2024 13:58-0500 SaO2% (BldA) [Mass fraction] 96 % Elham Campuzano WEBLOGIC DEVELOPER Work Phone: [facility] 06-17-2024 13:58-0500 Systolic blood pressure 142 mm[Hg] Elham Campuzano WEBLOGIC DEVELOPER Work Phone: [facility] 03-18-2024 14:37-0400 Body height 185.4 cm Elham Campuzano WEBLOGIC DEVELOPER Work Phone: [facility] 03-18-2024 14:37-0400 Body mass index (BMI) [Ratio] 29.16 kg/m2 Elham Campuzano WEBLOGIC DEVELOPER Work Phone: [facility] 03-18-2024 14:37-0400 Body temperature 97.9 [degF] Elham Campuzano WEBLOGIC DEVELOPER Work Phone: [facility] 03-18-2024 14:37-0400 Body weight 100.25 kg Elham Campuzano WEBLOGIC DEVELOPER Work Phone: [facility] 03-18-2024 14:37-0400 Diastolic blood pressure 76 mm[Hg] Elham Campuzano WEBLOGIC DEVELOPER Work Phone: [facility] 03-18-2024 14:37-0400 Heart rate 73 /min Elham Campuzano WEBLOGIC DEVELOPER Work Phone: [facility] Comment on above: 95% O2 03-18-2024 14:37-0400 Systolic blood pressure 138 mm[Hg] Elham Campuzano WEBLOGIC DEVELOPER Work Phone: [facility] 07-18-2023 09:35-0500 Body height 185.42 cm Diamond Bear Other [facility] Other 07-18-2023 09:35-0500 Body mass index (BMI) [Ratio] 30.34 kg/m2 Diamond Bear Other [facility] Other 07-18-2023 09:35-0500 Body temperature 99.3 [degF] Diamond Bear Other [facility] Other 07-18-2023 09:35-0500 Body weight 104.33 kg Diamond Bear Other [facility] Other 07-18-2023 09:35-0500 Diastolic blood pressure 84 mm[Hg] Diamond Bear Other [facility] Other 07-18-2023 09:35-0500 Respiratory rate 18 /min Diamond Bear Other [facility] Other 07-18-2023 09:35-0500 SaO2% (BldA) [Mass fraction] 96 % Diamond Bear Other [facility] Other 07-18-2023 09:35-0500 Systolic blood pressure 140 mm[Hg] Diamond Bear Other [facility] Other Encounters Encounter Date Encounter Type Care Provider Facility Start: 10-26-2024 End: 10-26-2024 Folica flowsheet Joanne Vargas WEBLOGIC DEVELOPER Work Phone: [facility] Start: 10-26-2024 End: 10-26-2024 Bamboo flowsheet Joanne Vargas WEBLOGIC DEVELOPER Work Phone: [facility] Start: 10-26-2024 End: 10-26-2024 Office outpatient visit 25 minutes Joanne Vargas WEBLOGIC DEVELOPER Work Phone: [facility] Comment on above: Type 2 diabetes xiomy itus without complication, without long- term current use of insulin (Primary Dx); Primary hypertension (CMS/HCC); Other cirrhosis of liver; Anxiety, generalized (CMS/HCC); Prostate cancer screening; Chronic hepatitis C without hepatic coma (CMS/HCC); Seasonal allergies Start: 10-26-2024 End: 10-26-2024 ambulatory JOANNE AICHHOLZ Not Available Start: 09-27-2024 End: 09-27-2024 Refill Joanne Aichholz [employer]BLOGIC DEVELOPER Work Phone: [facility] Comment on above: Type 2 diabetes xiomy itus without complication, without long- term current use of insulin (CMS/HCC) Start: 09-14-2024 End: 09-14-2024 Office outpatient visit 15 minutes Elham Johntrick WEBLOGIC DEVELOPER Work Phone: [facility] Comment on above: Type 2 diabetes xiomy itus without complication, without long- term current use of insulin (CMS/HCC) (Primary Dx); Primary hypertension (CMS/HCC); Anxiety, generalized (CMS/HCC) Start: 09-14-2024 End: 09-14-2024 ambulatory ELHAM CAMPUZANO Not Available Start: 09-14-2024 End: 09-14-2024 Bamboo flowsheet Elham Campuzano WEBLOGIC DEVELOPER Work Phone: [facility] Start: 09-14-2024 End: 09-14-2024 Bamboo flowsheet Elham Campuzano WEBLOGIC DEVELOPER Work Phone: [facility] Start: 08-18-2024 End: 08-18-2024 Refill Elham Campuzano WEBLOGIC DEVELOPER Work Phone: [facility] Comment on above: Primary hypertension (CMS/HCC); Other cirrhosis of liver (CMS/HCC) Start: 07-26-2024 End: 07-28-2024 Refill Paolo Paz MD Work Phone: [facility] Comment on above: Type 2 diabetes xiomy itus without complication, without long- term current use of insulin (CMS/HCC) Start: 07-22-2024 End: 07-24-2024 Refill Elham Campuzano WEBLOGIC DEVELOPER Work Phone: [facility] Comment on above: Type 2 diabetes xiomy itus without complication, without long- term current use of insulin (CMS/HCC) Start: 07-08-2024 End: 07-08-2024 Orders Only Elham Johntrick WEBLOGIC DEVELOPER Work Phone: [facility] Comment on above: Type 2 diabetes xiomy itus without complication, without long- term current use of insulin (CMS/HCC) (Primary Dx) Start: 07-02-2024 End: 07-02-2024 Clinisync Result Encounter Elham Campuzano WEBLOGIC DEVELOPER Work Phone: [facility] Unsolicited Start: 07-02-2024 End: 07-02-2024 Clinisync Result Encounter Elham Campuzano WEBLOGIC DEVELOPER Work Phone: [facility] Unsolicited Start: 06-17-2024 End: 06-17-2024 Bamboo flowsheet Elham Toussaintpatrick WEBLOGIC DEVELOPER Work Phone: [facility] Start: 06-17-2024 End: 06-17-2024 Bamboo flowsheet Elham Campuzano WEBLOGIC DEVELOPER Work Phone: [facility] Start: 06-17-2024 End: 06-17-2024 Office outpatient visit 15 minutes Elham Johntrick WEBLOGIC DEVELOPER Work Phone: [facility] Comment on above: Type 2 diabetes xiomy itus without complication, without long- term current use of insulin (CMS/HCC) (Primary Dx); Primary hypertension (CMS/HCC); Other cirrhosis of liver (CMS/HCC); Anxiety, generalized (CMS/HCC) Start: 06-17-2024 End: 06-17-2024 ambulatory ELHAM CAMPUZANO Not Available Start: 05-03-2024 End: 05-03-2024 Refill Elham Toussaintpatrick WEBLOGIC DEVELOPER Work Phone: [facility] Comment on above: Primary hypertension (CMS/HCC); Other cirrhosis of liver (CMS/HCC) Start: 04-22-2024 End: 04-22-2024 Orders Only Elham Campuzano WEBLOGIC DEVELOPER Work Phone: [facility] Comment on above: Type 2 diabetes xiomy itus without complication, without long- term current use of insulin (CMS/HCC) (Primary Dx) Start: 03-26-2024 End: 03-26-2024 Refill Elham Lunak WEBLOGIC DEVELOPER Work Phone: [facility] Comment on above: Type 2 diabetes xiomy itus without complication, without long- term current use of insulin (CMS/HCC) (Primary Dx) Start: 03-25-2024 End: 03-25-2024 Clinisync Result Encounter Elham Skyzpatrick WEBLOGIC DEVELOPER Work Phone: [facility] Unsolicited Start: 03-25-2024 End: 03-25-2024 Clinisync Result Encounter Elham Lunak WEBLOGIC DEVELOPER Work Phone: [facility] External Department Unsolicited Start: 03-18-2024 End: 03-18-2024 Office outpatient visit 15 minutes Elham Campuzano WEBLOGIC DEVELOPER Work Phone: [facility] Comment on above: Primary hypertension (CMS/HCC) (Primary Dx); Chronic hepatitis C without hepatic coma (CMS/HCC); Seasonal allergies; Elevated fasting glucose; Anxiety, generalized (CMS/HCC) Start: 03-18-2024 End: 03-18-2024 ambulatory ELHAM CAMPUZANO Not Available Start: 03-18-2024 End: 03-18-2024 Bamboo flowsheet Elham Campuzano WEBLOGIC DEVELOPER Work Phone: [facility] Start: 03-18-2024 End: 03-18-2024 Bamboo flowsheet Elham Campuzano WEBLOGIC DEVELOPER Work Phone: [facility] Start: 09-16-2023 Patient encounter status Elham Campuzano WEBLOGIC DEVELOPER Work Phone: [facility] Start: 07-18-2023 End: 07-18-2023 ambulatory Diamond Bear Other [facility] Other Start: 07-18-2023 Office outpatient vi sit 15 minutes Diamond Bear [facility] Start: 04-30-2022 End: 04-30-2022 ambulatory Bg Parkermindi Facility:[facility] Start: 04-30-2022 End: 04-30-2022 ambulatory MD Shaikh Cerna Work Phone: [facility] Work Phone: Start: 04-30-2022 End: 04-30-2022 Patient encounter procedure MD Shaikh Cerna Work Phone: [facility] [place] Start: 09-19-2021 End: 09-20-2021 ambulatory KIMBERLEY WALSH JR Facility:[facility] Start: 05-07-2021 End: 05-08-2021 ambulatory SHAIKH ERYN Facility:[facility] Start: 03-07-2021 End: 03-07-2021 ambulatory KIMBERLEY WALSH JR Facility:[facility] Start: 03-05-2021 ambulatory KIMBERLEY WALSH JR Facili ty:[facility] Start: 12-12-2020 End: 12-13-2020 ambulatory SHAIKH ERYN Facility:[facility] Procedures Date Procedure Procedure Detail Performing Clinician Start: 10-26-2024 Hemoglobin glycosylated a1c Joanne Vargas WEBLOGIC DEVELOPER Work Phone: Start: 07-02-2024 [facility] MICROALB CREAT R ATIO RANDOM Elham Campuzano WEBLOGIC DEVELOPER Work Phone: Start: 03-25-2024 ALL LIPID PROFILE (FASTING) Elham Campuzano WEBLOGIC DEVELOPER Work Phone: Start: 04-30-2022 Ultrasonography of liver MD Shaikh Cerna Work Phone: Start: 07-28-2019 Colonoscopy Elham wright WEBLOGIC DEVELOPER Work Phone: Screening for malign ant neoplasm of colon [facility] Other Plan of Treatment Date Care Activity Detail Author Start: 07-28-2029 Screening for malign ant neoplasm of colon [facility] Start: 05-24-2026 Glaucoma screening Diabetes: R etinopathy Screening [facility] Start: 07-02-2025 Urine screening for protein Diabetes: Urine Protein Screening [facility] Start: 03-28-2025 Influenza vaccination Influenz a Vaccine (Season Ended) [facility] Start: 01-25-2025 Hemoglobin A1c measurement Diabetes: Hemoglobin A1C [facility] Start: 01-25-2025 End: 01-25-2025 Patient encounter procedure 01/25/2025 1:00 PM EDT Office Visit [facility] [address] [place] [address] Joanne Vargas NP [address] [place] [address] [facility] Start: 10-26-2024 End: 10-26-2025 CBC W Auto Differential panel - Blood CBC and differential Lab Routine Other cirrhosis of liver (CMS/HCC) Expected: 10/26/2024 (Approximate), Expires: 10/26/2025 [facility] Comment on above: Expected: 10/26/2024 (Approximate), Expires: 10/26/2025 Start: 10-26-2024 End: 10-26-2025 Comprehensive metabolic 2000 panel - Serum or Plasma Comprehensive metabolic panel Lab Routine Primary hypertension (CMS/HCC) Other cirrhosis of liver (CMS/HCC) Type 2 diabetes mellitus without complication, without long-term current use of insulin (CMS/HCC) Expected: 10/26/2024 (Approximate), Expires: 10/26/2025 [facility] Comment on above: Expected: 10/26/2024 (Approximate), Expires: 10/26/2025 Start: 10-26-2024 End: 10-26-2025 Lipid 1996 panel - Serum or Plasma Lipid panel Lab Routine Type 2 diabetes mellitus without complication, without long-term current use of insulin (CMS/HCC) Expected: 10/26/2024 (Approximate), Expires: 10/26/2025 [facility] Comment on above: Expected: 10/26/2024 (Approximate), Expires: 10/26/2025 Start: 10-26-2024 End: 10-26-2025 Microalbumin/Creatinine panel in random Urine Microalbumin / creatinine, urine ratio Lab Routine Primary hypertension (CMS/HCC) Type 2 diabetes mellitus without complication, without long-term current use of insulin (CMS/HCC) Expected: 10/26/2024 (Approximate), Expires: 10/26/2025 [facility] Comment on above: Expected: 10/26/2024 (Approximate), Expires: 10/26/2025 Start: 10-26-2024 End: 10-26-2025 Prostate specific Ag [Mass/volume] in Serum or Plasma PSA Lab Routine Prostate cancer screening Expected: 10/26/2024 (Approximate), Expires: 10/26/2025 [facility] Work Phone: Comment on above: Expected: 10/26/2024 (Approximate), Expires: 10/26/2025 Start: 10-26-2024 End: 10-26-2025 Urinalysis complete panel - Urine Urinalysis with reflex microscopic (clean catch) Lab Routine Primary hypertension (CMS/HCC) Type 2 diabetes mellitus without complication, without long-term current use of insulin (CMS/HCC) Expected: 10/26/2024 (Approximate), Expires: 10/26/2025 [facility] Comment on above: Expected: 10/26/2024 (Approximate), Expires: 10/26/2025 Start: 10-26-2024 End: 10-26-2024 Patient encounter procedure [facility] Comment on above: Primary hypertension (CMS/HCC) (Primary Dx); Other cirrhosis of liver; Type 2 diabetes mellitus without complication, without long-term current use of insulin; Anxiety, generalized (CMS/HCC); Prostate cancer screening; Chronic hepatitis C without hepatic coma (CMS/HCC) Start: 09-16-2024 Pneumococcal Vaccine : 65+ Years (1 of 1 - PCV) Pneumococcal Vaccine: 65+ Years (1 of 1 - PCV) [facility] Comment on above: Postponed from 04/19 (Patient Refused) Start: 09-16-2024 Pneumococcal Vaccine : 65+ Years (1 of 2 - PCV) Pneumococcal Vaccine: 65+ Years (1 of 2 - PCV) [facility] Comment on above: Postponed from 04/19 (Patient Refused) Start: 09-14-2024 End: 09-14-2024 Patient encounter procedure [facility] Comment on above: Arrived Start: 07-08-2024 End: 04-22-2025 Hemoglobin A1c/Hemoglobin.total in Blood Hemoglobin A1c Lab Routine Type 2 diabetes mellitus without complication, without long-term current use of insulin (CMS/HCC) Expected: 07/08/2024, Expires: 04/22/2025 [facility] Work Phone: Comment on above: Expected: 07/08/2024 , Expires: 04/22/2025 Start: 06-17-2024 End: 06-17-2024 Patient encounter procedure [facility] Comment on above: Arrived Start: 03-28-2024 Influenza vaccination Influenza Vacc ine (#1) [facility] Start: 03-18-2024 End: 03-18-2024 Patient encounter procedure 03/18/2024 2:30 PM EDT Office Visit [facility] [address] [place] [address] Elham Campuzano NP [address] [place] [address] Primary hypertension (CMS/HCC) (Primary Dx); Chronic hepatitis C without hepatic coma (CMS/HCC) [facility] Comment on above: Primary hypertension (CMS/HCC) (Primary Dx); Chronic hepatitis C without hepatic coma (CMS/HCC) Start: 03-18-2024 End: 03-18-2025 Hemoglobin A1c/Hemoglobin.total in Blood Hemoglobin A1c Lab Routine Elevated fasting glucose Expected: 03/18/2024 (Approximate), Expires: 03/18/2025 [facility] Work Phone: Comment on above: Expected: 03/18/2024 (Approximate), Expires: 03/18/2025 Start: 03-18-2024 End: 03-18-2025 Lipid 1996 panel - Serum or Plasma Lipid panel Lab Routine Primary hypertension (CMS/HCC) Chronic hepatitis C without hepatic coma (CMS/HCC) Expected: 03/18/2024 (Approximate), Expires: 03/18/2025 [facility] Comment on above: Expected: 03/18/2024 (Approximate), Expires: 03/18/2025 Start: 06-19-2023 Screening for malign ant neoplasm of colon FIT-DNA [facility] Start: 1975 Urine screening for protein Diabetes: Urine Protein Screening [facility] Start: 1966 Glaucoma screening Diabetes: R etinopathy Screening [facility] Start: 1955 Hemoglobin A1c measurement Diabetes: Hemoglobin A1C [facility] Start: 1955 Screening for malign ant neoplasm of colon [facility] [id number]. tumo r marker [Mass/volume] in Serum or Plasma [facility] Work Phone: CBC W Auto Different ial panel - Blood CBC and differential Lab Routine Primary hypertension (CMS/HCC) Ordered: 03/18/2024 [facility] Comment on above: Ordered: 03/18/2024 Comprehensive metabo lic 2000 panel - Serum or Plasma Comprehensive metabolic panel Lab Routine Primary hypertension (CMS/HCC) Chronic hepatitis C without hepatic coma (CMS/HCC) Elevated fasting glucose Ordered: 03/18/2024 [facility] Comment on above: Ordered: 03/18/2024 Microalbumin/Creatin ine panel in random Urine Microalbumin / creatinine urine ratio Lab Routine Primary hypertension (CMS/HCC) Type 2 diabetes mellitus without complication, without long-term current use of insulin (CMS/HCC) Ordered: 06/17/2024 [facility] Work Phone: Comment on above: Ordered: 06/17/2024 Immunizations Immunization Date Immunization Notes Care Provider Luda romero 06-16-2023 influenza virus vaccine, unspecified formulation Elham Campuzano NP Work Phone: [facility] 11-04-2020 Do not use COVID-19 Pfizer 2 dose [facility] Other [facility] Other 10-29-2020 COVID-19 Omari Singer (Pfizer) MD Shaikh Cerna Work Phone: [facility] 10-13-2020 COVID-19 Omari Singer (Pfizer) MD Shaikh Cerna Work Phone: [facility] Payers Date Payer Category Payer Medicare [id number] 2023 Private Health Insurance [place] [id number] 2023 Unknown AARP AARP [id number] 2023-Present [address] [place] [address] [id number] 2023 Medicare [id number] 2023 Unknown [id number] 2022 Self-pay [id number] 1955 Unknown [id number] 1956 Unknown [id number] 1956 Unknown [id number] 1956 Unknown [id number] 1956 Unknown [id number] 1956 Unknown [id number] 1956 Unknown [id number] 1956 Unknown [id number] 1956 Unknown [id number] Unknown [id number] Unknown [id number] Unknown [id number] Social History Date Type Detail Facility Tobacco smoking status SDIS Unknown if ever smoked [facility] Work Phone: Start: 1955 Sex Assigned At Male [facility] Start: 03-18-2024 End: 10-26-2024 Sex Assigned At [facility] Other Start: 09-16-2023 Tobacco smoking status SDIS Never smoked tobacco [facility] Start: 09-16-2023 Tobacco use and exposure Smokeless tobacco non-user [facility] Start: 03-18-2024 End: 10-26-2024 Alcoholic beverage intake Lifetime non-drinker (finding) [facility] Start: 03-18-2024 End: 10-26-2024 History of Social function [facility] Start: 1955 Sex assigned at Not on file [facility] NEGATED: Highlighted rowStart: NINF History of tobacco use Passive smoker [facility] Medical Equipment Procedure Code Equipment Code Equipment Origin al Text Equipment Identifier Dates Use as instructed [id number] Start: 06-28-2024 End: 06-28-2025 1 each 2 (two) t imes a day as needed (hyperglucemia/hypog lycemia) [id number] Start: 06-28-2024 End: 07-22-2024 Use as instructed [id number] Start: 07-24-2024 End: 07-22-2025 1 each 2 (two) t imes a day as needed (hyperglucemia/hypog lycemia) [id number] Start: 07-24-2024 Clinical Notes 03-07-2021 to 10-26-2024 STEVE MANZANARES - 10/26/2024 1:20 PM EDElaine Vargas NP - 10/26/2024 1:20 PM EDNIKIisa Sam, WEBLOGIC DEVELOPER - 10/26/2024 7:03 AM EDElaine Vargas, JANIA - 10/26/2024 6:59 AM EDTPatient Instructions Note Date & Type Note Facility 10-26-2024 History of Presen t illness Narrative Pt is needing a refill of his prescriptions and G7 sensor Images from the original note were not included. Herbert Campbell is a 69 y.o. male presents with chief complaint of No chief complaint on file. HPI: Has been using dexcom 7 sensor samples, he does experience difficulty with poking fingers d/t skin thickness and not being able to obtain a sample Dexcom could not give results d/t out of working sensors Does not have low blood sugars that he is aware of, but again d/t difficulty obtaining finger stick is benefiting from CGM Diabetes He presents for his follow-up diabetic visit. He has type 2 diabetes mellitus. His disease course has been improving. Hypoglycemia symptoms include nervousness/anxiousness. Pertinent negatives for hypoglycemia include no dizziness, seizures or tremors. Associated symptoms include polyuria. Pertinent negatives for diabetes include no chest pain, no foot paresthesias, no polydipsia, no polyphagia and no visual change. There are no hypoglycemic complications. Symptoms are improving. Pertinent negatives for diabetic complications include no nephropathy or peripheral neuropathy. Risk factors for coronary artery disease include diabetes mellitus and sedentary lifestyle. Current diabetic treatment includes oral agent (dual therapy). An MOISÉS inhibitor/angiotensin II receptor nan is not being taken. He does not see a health counselor.Eye exam is current. Anxiety Presents for follow-up visit. Symptoms include irritability and nervous/anxious behavior. Patient reports no chest pain, decreased concentration, depressed mood, dizziness, excessive worry, insomnia, shortness of breath or suicidal ideas. Symptoms occur occasionally. The severity of symptoms is mild. The patient sleeps 7 hours per night. The quality of sleep is good. Nighttime awakenings: none. Compliance with medications is 76-100%. SUBJECTIVE: MEDICATIONS: Current Outpatient Medications Medication Instructions Blood Glucose Monitoring Suppl (D-Best Before Media Glucometer) w/Device kit 1 each, Does not apply, Daily busPIRone (BUSPAR) 5 mg, Oral, 2 times daily Continuous Glucose Asset Protection Detective (Dexcom G7 Asset Protection Detective) device 1 each, Does not apply, Continuous Continuous Glucose Sensor (Dexcom G7 Sensor) misc 1 each, Does not apply, Daily, Change sensor every 10 days fluticasone (Flonase) 50 MCG/ACT nasal spray 1-2 sprays, Each Nostril, Daily, Shake gently. Before first use, prime pump. After use, clean tip and replace cap. folic acid (FOLVITE) 1 mg, Oral, Daily furosemide (LASIX) 20 mg, Oral, Daily glipiZIDE (GLUCOTROL) 5 mg, Oral, 2 times daily before meals glucose blood (Cool Blood Glucose Test Strips) test strip Use as instructed Lancets 30G misc 1 each, Does not apply, 2 times daily PRN Loratadine 10 mg, Oral, Daily metFORMIN XR (GLUCOPHAGE-XR) 500 mg, Oral, Daily with evening meal, Do not crush, chew, or split. spironolactone (ALDACTONE) 50 mg, Oral, Daily ALLERGIES: No Known Allergies REVIEW OF SYMPTOMS: Review of Systems Constitutional: Positive for irritability. Negative for activity change, appetite change and unexpected weight change. HENT: Negative for ear pain, nosebleeds, sneezing, trouble swallowing and voice change. Eyes: Negative for pain, discharge and visual disturbance. Respiratory: Negative for apnea, chest tightness, shortness of breath and wheezing. Cardiovascular: Negative for chest pain and leg swelling. Gastrointestinal: Negative for abdominal distention, blood in stool, constipation and diarrhea. Genitourinary: Negative for decreased urine volume, difficulty urinating, dysuria and hematuria. Skin: Negative for color change. Neurological: Negative for dizziness, tremors and seizures. Psychiatric/Behavioral: Negative for agitation, decreased concentration, hallucinations, self-injury and suicidal ideas. The patient is nervous/anxious. The patient does not have insomnia. Hematological: Negative for adenopathy. Does not bruise/bleed easily. Endocrine: Positive for polyuria. Negative for cold intolerance, heat intolerance, polydipsia and polyphagia. Allergic/Immunologic: Negative for environmental allergies and food allergies. PAST MEDICAL HISTORY Past Medical History: Diagnosis Date Blood glucose elevated Chronic hepatitis C (CMS/HCC) Cirrhosis of liver with ascites (CMS/HCC) Environmental and seasonal allergies Erectile dysfunction of organic origin Hypertension (CMS/HCC) Past Surgical History: Procedure Laterality Date OTHER SURGICAL HISTORY Ear Surgery VASECTOMY family history includes Cancer in his father. OBJECTIVE: Visit Vitals BP 132/76 (BP Location: Left arm, Patient Position: Sitting, BP Cuff Size: Large adult) Pulse 71 Temp 98.1 F (Temporal) Resp 18 Wt 222 lb SpO2 96% BMI 29.29 kg/m Smoking Status Never BSA 2.28 m Physical Exam Vitals and nursing note reviewed. Constitutional: Appearance: Normal appearance. He is not ill-appearing. HENT: Head: Normocephalic. Right Ear: External ear normal. Left Ear: External ear normal. Nose: Nose normal. Mouth/Throat: Mouth: Mucous membranes are moist. Pharynx: Oropharynx is clear. Eyes: Extraocular Movements: Extraocular movements intact. Conjunctiva/sclera: Conjunctivae normal. Neck: Vascular: No carotid bruit. Cardiovascular: Rate and Rhythm: Normal rate and regular rhythm. Pulses: Normal pulses. Heart sounds: Normal heart sounds. Pulmonary: Effort: Pulmonary effort is normal. Breath sounds: Normal breath sounds. No wheezing or rhonchi. Abdominal: General: Bowel sounds are normal. Palpations: Abdomen is soft. Musculoskeletal: Cervical back: Neck supple. Right lower leg: No edema. Left lower leg: No edema. Lymphadenopathy: Cervical: No cervical adenopathy. Skin: General: Skin is warm and dry. Capillary Refill: Capillary refill takes 2 to 3 seconds. Neurological: General: No focal deficit present. Mental Status: He is alert. Psychiatric: Mood and Affect: Mood normal. Behavior: Behavior normal. Thought Content: Thought content normal. Judgment: Judgment normal. ASSESSMENT AND PLAN: Follow up in about 3 months (around 01/25/2025) for Recheck. Problem List Items Addressed This Visit Chronic hepatitis C without hepatic coma (CMS/HCC) Was referred to GI, was treated for Hep C 3 years ago, and cured Other cirrhosis of liver Current meds: lasix/aldactone Does not see GI at all Relevant Medications folic acid (Folvite) 1 MG tablet furosemide (Lasix) 20 MG tablet spironolactone (Aldactone) 50 MG tablet Other Relevant Orders CBC and differential Comprehensive metabolic panel Primary hypertension (CMS/HCC) Please check blood pressure daily and record DASH diet Limit caffeine Take medication as directed Contact office if chest pain, pressure, dizziness, shortness of breath, swelling legs Recommend slow position changes Current meds: spironolactone Relevant Medications furosemide (Lasix) 20 MG tablet spironolactone (Aldactone) 50 MG tablet Other Relevant Orders Comprehensive metabolic panel Urinalysis with reflex microscopic (clean catch) Microalbumin / creatinine, urine ratio Seasonal allergies Relevant Medications fluticasone (Flonase) 50 MCG/ACT nasal spray Loratadine 10 MG capsule Anxiety, generalized (CMS/HCC) Current meds: buspar YASMINE 7=3 Relevant Medications busPIRone (Buspar) 5 MG tablet Type 2 diabetes mellitus without complication - Primary Check blood sugars daily, notify if <70 or >200. Take medications (pills or insulin) as directed. Monitor for s/s of hypoglycemia (sweaty, dizziness, nausea, vomiting, or shakiness). Watch for increase in thirst, urination, or appetite. Inspect feet frequently monitoring for open wounds , and also recommend yearly eye exam. Pt should attempt to remain as physically active as chronic conditions allow, as well as trying to follow a diet low in carbohydrates, and simple sugars. Was struggling at last appt with meter, error codes, not sure if having hypoglycemia, ordered dexcom 7 Current meds: glipizide, and metformin A1c 8.0% 10/26/24, 10.3% 07/20 #2 sensors: lot [id number] 06/16/25 Relevant Medications Continuous Glucose Sensor (Dexcom G7 Sensor) misc glipiZIDE (Glucotrol) 5 MG tablet metFORMIN XR (Glucophage-XR) 500 MG 24 hr tablet Other Relevant Orders POCT glycosylated hemoglobin (Hb A1C) docked device (Completed) Lipid panel Comprehensive metabolic panel Urinalysis with reflex microscopic (clean catch) Microalbumin / creatinine, urine ratio Prostate cancer screening Relevant Orders PSA Associated Problem(s): Chronic hepatitis C without hepatic coma (CMS/HCC) Was referred to GI, was treated for Hep C 3 years ago, and cured Associated Problem(s): Anxiety, generalized (CMS/HCC) Current meds: buspar YASMINE 7=3 Associated Problem(s): Type 2 diabetes mellitus without complication Check blood sugars daily, notify if <70 or >200. Take medications (pills or insulin) as directed. Monitor for s/s of hypoglycemia (sweaty, dizziness, nausea, vomiting, or shakiness). Watch for increase in thirst, urination, or appetite. Inspect feet frequently monitoring for open wounds , and also recommend yearly eye exam. Pt should attempt to remain as physically active as chronic conditions allow, as well as trying to follow a diet low in carbohydrates, and simple sugars. Was struggling at last appt with meter, error codes, not sure if having hypoglycemia, ordered dexcom 7 Current meds: glipizide, and metformin A1c 8.0% 10/26/24, 10.3% 07/20 #2 sensors: lot [id number] 06/16/25 Associated Problem(s): Other cirrhosis of liver Current meds: lasix/aldactone Does not see GI at all Associated Problem(s): Primary hypertension (CMS/HCC) Please check blood pressure daily and record DASH diet Limit caffeine Take medication as directed Contact office if chest pain, pressure, dizziness, shortness of breath, swelling legs Recommend slow position changes Current meds: spironolactone documented in this encounter [facility] 10-26-2024 Instructions Joanne Vargas NP - 10/26/2024 1:20 PM EDT Keep up the good work Check labs fasting documented in this encounter [facility] 09-14-2024 History of Presen t illness Narrative Associated Problem(s): Type 2 diabetes mellitus without complication (CMS/HCC) Started patient on Metformin 500mg on 03/30 for A1C of 10.9. Then ordered Rybelsus- pt did not start due to cost- but never updated office of this. Most recent labs: hemoglobin A1C 10.3% Average FSBS range from BGs range between 200 and 350 Checks BG levels using: standard glucometer. Unfortunately has been having multiple errors with machine and is unsure if he is experiencing hypoglycemic episodes. Will order Dexcom today for more precise BG monitoring. Started patient on Metformin 500mg on 03/30 for A1C of 10.9. Then ordered Rybelsus- pt did not start due to cost- but never updated office of this. Will add Glipizide 5mg Bid today. Will see pt in 6 weeks to re-evaluate for efficacy and see BG logs! No medication adverse effects reported by the patient. Patient educated on lifestyle modifications, dietary restrictions, signs and symptoms of hypoglycemia/hyperglycemia and importance of eating regular consistent meals. Stressed upon importance of checking blood glucose at home and bring blood glucose log to appointments. All questions, concerns answered and addressed. Encouraged to call office if persistent hypoglycemia/hyperglycemia on home glucose monitoring noted. Associated Problem(s): Anxiety, generalized (CMS/HCC) Has been taking Buspar 5mg BID. Reports no unwanted side effects form medication. Feels anxiety has improved since starting medication, states he feels much calmer . Continue current regimen. Associated Problem(s): Primary hypertension (CMS/HCC) Currently taking Lasix 20mg Spironolactone 50mg Checks BP at home; Averages are typically around 130/70. Denies orthostatic changes, dizziness, cough, shortness of breath, swelling in extremities. Continue current regimen. Given BP log, advised pt to record BP and bring log back with them to next visit. Images from the original note were not included. Subjective Patient ID: Herbert Campbell is a 69 y.o. male who presents for Follow-up. HPI HTN: Currently taking Lasix 20mg Spironolactone 50mg Checks BP at home; Averages are typically around 130/70. Denies orthostatic changes, dizziness, cough, shortness of breath, swelling in extremities. Continue current regimen. Given BP log, advised pt to record BP and bring log back with them to next visit. DMII: Started patient on Metformin 500mg on 03/30 for A1C of 10.9. Then ordered Rybelsus- pt did not start due to cost- but never updated office of this. Most recent labs: hemoglobin A1C 10.3% Average FSBS range from BGs range between 200 and 350 Checks BG levels using: standard glucometer. Unfortunately has been having multiple errors with machine and is unsure if he is experiencing hypoglycemic episodes. Will order Dexcom today for more precise BG monitoring. Started patient on Metformin 500mg on 03/30 for A1C of 10.9. Then ordered Rybelsus- pt did not start due to cost- but never updated office of this. Will add Glipizide 5mg Bid today. Will see pt in 6 weeks to re-evaluate for efficacy and see BG logs! No medication adverse effects reported by the patient. Patient educated on lifestyle modifications, dietary restrictions, signs and symptoms of hypoglycemia/hyperglycemia and importance of eating regular consistent meals. Stressed upon importance of checking blood glucose at home and bring blood glucose log to appointments. All questions, concerns answered and addressed. Encouraged to call office if persistent hypoglycemia/hyperglycemia on home glucose monitoring noted. Education: Check blood sugars daily, notify if <70 or >200. Take medications (pills or insulin) as directed. Monitor for s/s of hypoglycemia (sweaty, dizziness, nausea, vomiting, or shakiness). Watch for increase in thirst, urination, or appetite. Inspect feet frequently monitoring for open wounds , and also recommend yearly eye exam. Pt should attempt to remain as physically active as chronic conditions allow, as well as trying to follow a diet low in carbohydrates, and simple sugars. YASMINE: Has been taking Buspar 5mg BID. Reports no unwanted side effects form medication. Feels anxiety has improved since starting medication, states he feels much calmer . Continue current regimen. Review of Systems Constitutional: Negative for activity change, appetite change, chills, diaphoresis, fatigue, fever and unexpected weight change. HENT: Negative for congestion, ear pain, rhinorrhea, sinus pressure, sinus pain, sneezing, sore throat, trouble swallowing and voice change. Eyes: Negative for visual disturbance. Respiratory: Negative for cough, chest tightness, shortness of breath and wheezing. Cardiovascular: Negative for chest pain, palpitations and leg swelling. Gastrointestinal: Negative for abdominal distention, abdominal pain, blood in stool, constipation, diarrhea and vomiting. Genitourinary: Negative for decreased urine volume, dysuria, flank pain, frequency, hematuria and urgency. Musculoskeletal: Negative for arthralgias, gait problem, joint swelling and myalgias. Skin: Negative for rash. Neurological: Negative for dizziness, tremors, syncope, weakness, light-headedness and headaches. Psychiatric/Behavioral: Negative for decreased concentration and suicidal ideas. The patient is not nervous/anxious. Hematological: Does not bruise/bleed easily. Endocrine: Negative for cold intolerance, heat intolerance, polydipsia, polyphagia and polyuria. Objective Physical Exam Vitals reviewed. Constitutional: Appearance: Normal appearance. HENT: Right Ear: Tympanic membrane normal. Left Ear: Tympanic membrane normal. Nose: Nose normal. Mouth/Throat: Mouth: Mucous membranes are moist. Pharynx: Oropharynx is clear. Eyes: Pupils: Pupils are equal, round, and reactive to light. Cardiovascular: Rate and Rhythm: Normal rate and regular rhythm. Pulses: Normal pulses. Heart sounds: Normal heart sounds. Pulmonary: Effort: Pulmonary effort is normal. Breath sounds: Normal breath sounds. Abdominal: General: Abdomen is flat. Bowel sounds are normal. Palpations: Abdomen is soft. Musculoskeletal: General: Normal range of motion. Skin: General: Skin is warm and dry. Capillary Refill: Capillary refill takes less than 2 seconds. Neurological: Mental Status: He is alert and oriented to person, place, and time. Assessment/Plan Problem List Items Addressed This Visit Primary hypertension ([facility]) Currently taking Lasix 20mg Spironolactone 50mg Checks BP at home; Averages are typically around 130/70. Denies orthostatic changes, dizziness, cough, shortness of breath, swelling in extremities. Continue current regimen. Given BP log, advised pt to record BP and bring log back with them to next visit. Anxiety, generalized ([facility]) Has been taking Buspar 5mg BID. Reports no unwanted side effects form medication. Feels anxiety has improved since starting medication, states he feels much calmer . Continue current regimen. Type 2 diabetes mellitus without complication ([facility]/HCC) - Primary Started patient on Metformin 500mg on 03/30 for A1C of 10.9. Then ordered Rybelsus- pt did not start due to cost- but never updated office of this. Most recent labs: hemoglobin A1C 10.3% Average FSBS range from BGs range between 200 and 350 Checks BG levels using: standard glucometer. Unfortunately has been having multiple errors with machine and is unsure if he is experiencing hypoglycemic episodes. Will order Dexcom today for more precise BG monitoring. Started patient on Metformin 500mg on 03/30 for A1C of 10.9. Then ordered Rybelsus- pt did not start due to cost- but never updated office of this. Will add Glipizide 5mg Bid today. Will see pt in 6 weeks to re-evaluate for efficacy and see BG logs! No medication adverse effects reported by the patient. Patient educated on lifestyle modifications, dietary restrictions, signs and symptoms of hypoglycemia/hyperglycemia and importance of eating regular consistent meals. Stressed upon importance of checking blood glucose at home and bring blood glucose log to appointments. All questions, concerns answered and addressed. Encouraged to call office if persistent hypoglycemia/hyperglycemia on home glucose monitoring noted. Relevant Medications glipiZIDE (Glucotrol) 5 MG tablet Continuous Glucose Asset Protection Detective (Dexcom G7 Asset Protection Detective) device Continuous Glucose Sensor (Dexcom G7 Sensor) misc documented in this encounter [facility] 09-14-2024 Instructions Elham Campuzano NP - 09/14/2024 3:00 PM EST Education: Check blood sugars daily, notify if <70 or >200. Take medications (pills or insulin) as directed. Monitor for s/s of hypoglycemia (sweaty, dizziness, nausea, vomiting, or shakiness). Watch for increase in thirst, urination, or appetite. Inspect feet frequently monitoring for open wounds , and also recommend yearly eye exam. Pt should attempt to remain as physically active as chronic conditions allow, as well as trying to follow a diet low in carbohydrates, and simple sugars. documented in this encounter [facility] 07-08-2024 History of Presen t illness Narrative documented in this encounter [facility] 06-17-2024 History of Presen t illness Narrative Associated Problem(s): Primary hypertension (CMS/HCC) Currently taking Lasix 20mg Spironolactone 50mg Checks BP at home; Averages are 130/70. Denies orthostatic changes, dizziness, cough, shortness of breath, swelling in extremities. Continue current regimen. Given BP log, advised pt to record BP and bring log back with them to next visit. Associated Problem(s): Anxiety, generalized (CMS/HCC) Has been taking Buspar 5mg BID. Reports no unwanted side effects form medication. Feels anxiety has improved since starting medication, states he feels much calmer . Continue current regimen. Associated Problem(s): Type 2 diabetes mellitus without complication (CMS/HCC) Started patient on Metformin 500mg on 03/30 for A1C of 10.9. Recheck ordered. Pt has not completed but states he will in the next two weeks. Denies any adverse effects or unwanted side effects from medication. Has not been checking BG at home. Images from the original note were not included. Subjective Patient ID: Herbert Campbell is a 69 y.o. male who presents for Follow-up. HPI HTN: Currently taking Lasix 20mg Spironolactone 50mg Checks BP at home; Averages are 130/70. Denies orthostatic changes, dizziness, cough, shortness of breath, swelling in extremities. Continue current regimen. Given BP log, advised pt to record BP and bring log back with them to next visit. DMII: Started patient on Metformin 500mg on 03/30 for A1C of 10.9. Recheck ordered. Pt has not completed but states he will in the next two weeks. Denies any adverse effects or unwanted side effects from medication. Has not been checking BG at home. Ordered BG monitoring kit for patient. Review of Systems Constitutional: Negative for activity change, appetite change, chills, diaphoresis, fatigue, fever and unexpected weight change. HENT: Negative for congestion, ear pain, rhinorrhea, sinus pressure, sinus pain, sneezing, sore throat, trouble swallowing and voice change. Eyes: Negative for visual disturbance. Respiratory: Negative for cough, chest tightness, shortness of breath and wheezing. Cardiovascular: Negative for chest pain, palpitations and leg swelling. Gastrointestinal: Negative for abdominal distention, abdominal pain, blood in stool, constipation, diarrhea and vomiting. Genitourinary: Negative for decreased urine volume, dysuria, flank pain, frequency, hematuria and urgency. Musculoskeletal: Negative for arthralgias, gait problem, joint swelling and myalgias. Skin: Negative for rash. Neurological: Negative for dizziness, tremors, syncope, weakness, light-headedness and headaches. Psychiatric/Behavioral: Negative for decreased concentration and suicidal ideas. The patient is not nervous/anxious. Hematological: Does not bruise/bleed easily. Endocrine: Negative for cold intolerance, heat intolerance, polydipsia, polyphagia and polyuria. Objective Physical Exam Vitals reviewed. Constitutional: Appearance: Normal appearance. HENT: Head: Normocephalic and atraumatic. Right Ear: Tympanic membrane normal. Left Ear: Tympanic membrane normal. Nose: Nose normal. Mouth/Throat: Mouth: Mucous membranes are moist. Pharynx: Oropharynx is clear. Eyes: Pupils: Pupils are equal, round, and reactive to light. Cardiovascular: Rate and Rhythm: Normal rate and regular rhythm. Pulses: Normal pulses. Heart sounds: Normal heart sounds. Pulmonary: Effort: Pulmonary effort is normal. Breath sounds: Normal breath sounds. Abdominal: General: Abdomen is flat. Bowel sounds are normal. Palpations: Abdomen is soft. Musculoskeletal: General: Normal range of motion. Cervical back: Normal range of motion. Skin: General: Skin is warm and dry. Capillary Refill: Capillary refill takes less than 2 seconds. Neurological: General: No focal deficit present. Mental Status: He is alert and oriented to person, place, and time. Psychiatric: Mood and Affect: Mood normal. Behavior: Behavior normal. Assessment/Plan Problem List Items Addressed This Visit Other cirrhosis of liver (CMS/HCC) Primary hypertension (CMS/HCC) Currently taking Lasix 20mg Spironolactone 50mg Checks BP at home; Averages are 130/70. Denies orthostatic changes, dizziness, cough, shortness of breath, swelling in extremities. Continue current regimen. Given BP log, advised pt to record BP and bring log back with them to next visit. Anxiety, generalized (CMS/HCC) Has been taking Buspar 5mg BID. Reports no unwanted side effects form medication. Feels anxiety has improved since starting medication, states he feels much calmer . Continue current regimen. Type 2 diabetes mellitus without complication (CMS/HCC) - Primary Started patient on Metformin 500mg on 03/30 for A1C of 10.9. Recheck ordered. Pt has not completed but states he will in the next two weeks. Denies any adverse effects or unwanted side effects from medication. Has not been checking BG at home. documented in this encounter [facility] 03-20-2024 History of Presen t illness Narrative Associated Problem(s): Anxiety, generalized (CMS/HCC) Reports feeling anxious and restless as he ages. advised pt he needs some meds for this. Discussed non-pharmacological interventions and pharmacological interventions in detail with patient. Pt states understanding. Will trial Buspar 5mg BID. Associated Problem(s): Elevated fasting glucose A1c ordered. CMP ordered. Continue to monitor Associated Problem(s): Primary hypertension (CMS/HCC) Checks BP at home. Well managed Slightly elevated today. Will continue to monitor Lasix 20mg Spironolactone 50mg Denies orthostatic changes Continue Images from the original note were not included. Subjective Patient ID: Herbert Campbell is a 68 y.o. male who presents for Follow-up (BROUGHT MEDS ). HPI HTN: Lasix 20mg Spironolactone 50mg Denies orthostatic changes Continue Chronic Hepatitis C: Stable; took Harvoni; Declining any fuirther tx at this time. Component Ref Range & Units 5 mo ago SODIUM 136 - 145 mmol/L 137 POTASSIUM 3.5 - 5.1 mmol/L 4.3 CHLORIDE 98 - 107 mmol/L 99 CARBON DIOXIDE 21.0 - 32.0 mmol/L 29.9 ANION GAP 12.4 GLUCOSE 74 - 106 mg/dL 312 High BLOOD UREA NITROGEN 7.0 - 18.0 mg/dL 17.0 CREATININE 0.70 - 1.30 mg/dL 1.03 [facility] EGFR-AF GUATEMALAN >=60 >60 [facility] EGFR-NON AF GUATEMALAN >=60 >60 BUN CREATININE RATIO 16.5 CALCIUM 8.5 - 10.1 mg/dL 9.0 BILIRUBIN TOTAL 0.2 - 1.0 mg/dL 0.8 ASPARTATE AMINO TRANSFERASE 15 - 37 U/L 14 Low ALANINE AMINOTRANSFERASE 16 - 63 U/L 31 ALKALINE PHOSPHATASE 46 - 116 U/L 44 Low TOTAL PROTEIN 6.4 - 8.2 g/dL 7.9 ALBUMIN LEVEL 3.4 - 5.0 g/dL 3.8 GLOBULIN g/dL 4.1 ALBUMIN GLOBULIN RATIO 0.9 Resulting Agency [facility] Review of Systems Constitutional: Negative for activity change, appetite change, chills, diaphoresis, fatigue, fever and unexpected weight change. HENT: Negative for congestion, ear pain, rhinorrhea, sinus pressure, sinus pain, sneezing, sore throat, trouble swallowing and voice change. Eyes: Negative for visual disturbance. Respiratory: Negative for cough, chest tightness, shortness of breath and wheezing. Cardiovascular: Negative for chest pain, palpitations and leg swelling. Gastrointestinal: Negative for abdominal distention, abdominal pain, blood in stool, constipation, diarrhea and vomiting. Genitourinary: Negative for decreased urine volume, dysuria, flank pain, frequency, hematuria and urgency. Musculoskeletal: Negative for arthralgias, gait problem, joint swelling and myalgias. Skin: Negative for rash. Neurological: Negative for dizziness, tremors, syncope, weakness, light-headedness and headaches. Psychiatric/Behavioral: Negative for decreased concentration and suicidal ideas. The patient is nervous/anxious. Hematological: Does not bruise/bleed easily. Endocrine: Negative for cold intolerance, heat intolerance, polydipsia, polyphagia and polyuria. Objective Physical Exam Vitals reviewed. Constitutional: Appearance: Normal appearance. HENT: Head: Normocephalic and atraumatic. Right Ear: Tympanic membrane normal. Left Ear: Tympanic membrane normal. Nose: Nose normal. Mouth/Throat: Mouth: Mucous membranes are moist. Pharynx: Oropharynx is clear. Eyes: Pupils: Pupils are equal, round, and reactive to light. Cardiovascular: Rate and Rhythm: Normal rate and regular rhythm. Pulses: Normal pulses. Heart sounds: Normal heart sounds. Pulmonary: Effort: Pulmonary effort is normal. Breath sounds: Normal breath sounds. Abdominal: General: Abdomen is flat. Bowel sounds are normal. Palpations: Abdomen is soft. Musculoskeletal: General: Normal range of motion. Cervical back: Normal range of motion. Skin: General: Skin is warm and dry. Capillary Refill: Capillary refill takes less than 2 seconds. Neurological: General: No focal deficit present. Mental Status: He is alert and oriented to person, place, and time. Psychiatric: Mood and Affect: Mood normal. Behavior: Behavior normal. Assessment/Plan Problem List Items Addressed This Visit Chronic hepatitis C without hepatic coma (CMS/HCC) Relevant Orders Comprehensive metabolic panel Lipid panel Primary hypertension (CMS/HCC) - Primary Checks BP at home. Well managed Slightly elevated today. Will continue to monitor Lasix 20mg Spironolactone 50mg Denies orthostatic changes Continue Relevant Orders CBC and differential Comprehensive metabolic panel Lipid panel Elevated fasting glucose A1c ordered. CMP ordered. Continue to monitor Relevant Orders Hemoglobin A1c Comprehensive metabolic panel Seasonal allergies Relevant Medications Loratadine 10 MG capsule fluticasone (Flonase) 50 MCG/ACT nasal spray Anxiety, generalized (CMS/HCC) Reports feeling anxious and restless as he ages. advised pt he needs some meds for this. Discussed non-pharmacological interventions and pharmacological interventions in detail with patient. Will trial Buspar 5mg BID. documented in this encounter [facility] 03-18-2024 Instructions Elham Campuzano NP - 03/18/2024 2:30 PM EDT FASTING labs ordered. Nothing to eat or drink for 12 hours prior to blood draw. Water and black coffee ok. Your blood pressure is OK in the office today. Check your blood pressure at home 3 times per week, preferably in the afternoon. Goal <130/90. Record results in blood pressure log. Bring back with you to your next visit. Diet: Eat three meals per day. Breakfast, lunch, and dinner. Avoid snacking. Avoid eating after 5/6 pm. Daily protein GOAL 35% of your intake; 30g per meal. Daily calorie GOAL 1,800-2,000 per day. Consider tracking your food intake on [id number] or LoseIt Water: Increase water intake; GOAL 64-80oz of water per day. Exercise: Increase activity. GOAL 30 minutes, 5 days per week. START SLOW. Start with 5 minutes, 5 days per week. Then increase to 10 days, 5 days per week. Continue to increase until you reach the goal. Increase steps; GOAL 10,000 steps per day. Be sure to get adequate sleep; GOAL 6-8 hours of sleep per night. documented in this encounter [facility] 07-18-2023 Evaluation note Encounter Date Diagnosis Assessment [...] physician if no improvement in 2-3 days [facility] Other 08-11-2021 NoteOPERATIVE NOTE OPERATION DATE: 03-07-21 ANESTHETIC: MAC. Propofol [...] the office for continued management of cirrhosis. [facility] Signed and Approved by: KIMBERLEY WALSH JR 03/07/2021 11:12:00[facility] noteNo assessment information availableKettering Health [facility] Work Phone: Evaluation note* Diagnosis Primary hypertension (CMS/HCC) Unspecified essential hypertension Other cirrhosis of liver (CMS/HCC) [facility] Diagnosis Primary hypertension (CMS/HCC)- Primary Unspecified essential hypertension Other cirrhosis of liver (CMS/HCC) Chronic hepatitis C without hepatic coma (CMS/HCC) Screening for prostate cancer Special screening for malignant neoplasm of prostate Wellness examination Abnormal ultrasound of liver- Primary Abnormal CT of liver- Primary Primary hypertension (CMS/HCC)- Primary Unspecified essential hypertension Chronic hepatitis C without hepatic coma (CMS/HCC) Seasonal allergies Allergic rhinitis, cause unspecified Elevated fasting glucose Impaired fasting glucose Anxiety, generalized (CMS/HCC) Type 2 diabetes mellitus without complication, without long-term current use of insulin (CMS/HCC)- Primary Primary hypertension (CMS/HCC) Unspecified essential hypertension Other cirrhosis of liver (CMS/HCC) Anxiety, generalized (CMS/HCC) [facility] Diagnosis Primary hypertension (CMS/HCC)- Primary Unspecified essential hypertension Other cirrhosis of liver (CMS/HCC) Chronic hepatitis C without hepatic coma (CMS/HCC) Screening for prostate cancer Special screening for malignant neoplasm of prostate Wellness examination Abnormal ultrasound of liver- Primary Abnormal CT of liver- Primary Primary hypertension (CMS/HCC)- Primary Unspecified essential hypertension Chronic hepatitis C without hepatic coma (CMS/HCC) Seasonal allergies Allergic rhinitis, cause unspecified Elevated fasting glucose Impaired fasting glucose Anxiety, generalized (CMS/HCC) Type 2 diabetes mellitus without complication, without long-term current use of insulin (CMS/HCC)- Primary Primary hypertension (CMS/HCC) Unspecified essential hypertension Other cirrhosis of liver (CMS/HCC) Anxiety, generalized (CMS/HCC) Type 2 diabetes mellitus without complication, without long-term current use of insulin (CMS/HCC)- Primary [facility] Diagnosis Primary hypertension (CMS/HCC)- Primary Unspecified essential hypertension Chronic hepatitis C without hepatic coma (CMS/HCC) Seasonal allergies Allergic rhinitis, cause unspecified Elevated fasting glucose Impaired fasting glucose Anxiety, generalized (CMS/HCC) [facility] Diagnosis Type 2 diabetes mellitus without complication, without long-term current use of insulin (CMS/HCC)- Primary [facility] Diagnosis Type 2 diabetes mellitus without complication, without long-term current use of insulin (CMS/HCC)- Primary [facility] Diagnosis Primary hypertension (CMS/HCC)- Primary Unspecified essential hypertension Other cirrhosis of liver (CMS/HCC) Chronic hepatitis C without hepatic coma (CMS/HCC) Screening for prostate cancer Special screening for malignant neoplasm of prostate Wellness examination Abnormal ultrasound of liver- Primary Abnormal CT of liver- Primary Primary hypertension (CMS/HCC)- Primary Unspecified essential hypertension Chronic hepatitis C without hepatic coma (CMS/HCC) Seasonal allergies Allergic rhinitis, cause unspecified Elevated fasting glucose Impaired fasting glucose Anxiety, generalized (CMS/HCC) Type 2 diabetes mellitus without complication, without long-term current use of insulin (CMS/HCC)- Primary Primary hypertension (CMS/HCC) Unspecified essential hypertension Other cirrhosis of liver (CMS/HCC) Anxiety, generalized (CMS/HCC) Type 2 diabetes mellitus without complication, without long-term current use of insulin (CMS/HCC) documented in this encounter [facility]* Diagnosis Primary hypertension (CMS/HCC)- Primary Unspecified essential hypertension Other cirrhosis of liver (CMS/HCC) Chronic hepatitis C without hepatic coma (CMS/HCC) Screening for prostate cancer Special screening for malignant neoplasm of prostate Wellness examination Abnormal ultrasound of liver- Primary Abnormal CT of liver- Primary Primary hypertension (CMS/HCC)- Primary Unspecified essential hypertension Chronic hepatitis C without hepatic coma (CMS/HCC) Seasonal allergies Allergic rhinitis, cause unspecified Elevated fasting glucose Impaired fasting glucose Anxiety, generalized (CMS/HCC) Type 2 diabetes mellitus without complication, without long-term current use of insulin (CMS/HCC)- Primary Primary hypertension (CMS/HCC) Unspecified essential hypertension Other cirrhosis of liver (CMS/HCC) Anxiety, generalized (CMS/HCC) Type 2 diabetes mellitus without complication, without long-term current use of insulin (CMS/HCC) documented in this encounter [facility]* Diagnosis Primary hypertension (CMS/HCC)- Primary Unspecified essential hypertension Other cirrhosis of liver (CMS/HCC) Chronic hepatitis C without hepatic coma (CMS/HCC) Screening for prostate cancer Special screening for malignant neoplasm of prostate Wellness examination Abnormal ultrasound of liver- Primary Abnormal CT of liver- Primary Primary hypertension (CMS/HCC)- Primary Unspecified essential hypertension Chronic hepatitis C without hepatic coma (CMS/HCC) Seasonal allergies Allergic rhinitis, cause unspecified Elevated fasting glucose Impaired fasting glucose Anxiety, generalized (CMS/HCC) Type 2 diabetes mellitus without complication, without long-term current use of insulin (CMS/HCC)- Primary Primary hypertension (CMS/HCC) Unspecified essential hypertension Other cirrhosis of liver (CMS/HCC) Anxiety, generalized (CMS/HCC) Primary hypertension (CMS/HCC) Unspecified essential hypertension Other cirrhosis of liver (CMS/HCC) documented in this encounter [facility]* Diagnosis Primary hypertension (CMS/HCC)- Primary Unspecified essential hypertension Other cirrhosis of liver (CMS/HCC) Chronic hepatitis C without hepatic coma (CMS/HCC) Screening for prostate cancer Special screening for malignant neoplasm of prostate Wellness examination Abnormal ultrasound of liver- Primary Abnormal CT of liver- Primary Primary hypertension (CMS/HCC)- Primary Unspecified essential hypertension Chronic hepatitis C without hepatic coma (CMS/HCC) Seasonal allergies Allergic rhinitis, cause unspecified Elevated fasting glucose Impaired fasting glucose Anxiety, generalized (CMS/HCC) Type 2 diabetes mellitus without complication, without long-term current use of insulin (CMS/HCC)- Primary Primary hypertension (CMS/HCC) Unspecified essential hypertension Other cirrhosis of liver (CMS/HCC) Anxiety, generalized (CMS/HCC) Type 2 diabetes mellitus without complication, without long-term current use of insulin (CMS/HCC)- Primary Primary hypertension (CMS/HCC) Unspecified essential hypertension Anxiety, generalized (CMS/HCC) documented in this encounter [facility]* Diagnosis Primary hypertension (CMS/HCC)- Primary Unspecified essential hypertension Other cirrhosis of liver (CMS/HCC) Chronic hepatitis C without hepatic coma (CMS/HCC) Screening for prostate cancer Special screening for malignant neoplasm of prostate Wellness examination Abnormal ultrasound of liver- Primary Abnormal CT of liver- Primary Primary hypertension (CMS/HCC)- Primary Unspecified essential hypertension Chronic hepatitis C without hepatic coma (CMS/HCC) Seasonal allergies Allergic rhinitis, cause unspecified Elevated fasting glucose Impaired fasting glucose Anxiety, generalized (CMS/HCC) Type 2 diabetes mellitus without complication, without long-term current use of insulin (CMS/HCC)- Primary Primary hypertension (CMS/HCC) Unspecified essential hypertension Other cirrhosis of liver (CMS/HCC) Anxiety, generalized (CMS/HCC) Type 2 diabetes mellitus without complication, without long-term current use of insulin (CMS/HCC)- Primary Primary hypertension (CMS/HCC) Unspecified essential hypertension Anxiety, generalized (CMS/HCC) Type 2 diabetes mellitus without complication, without long-term current use of insulin (CMS/HCC) documented in this encounter [facility]* Diagnosis Primary hypertension (CMS/HCC)- Primary Unspecified essential hypertension Other cirrhosis of liver Chronic hepatitis C without hepatic coma (CMS/HCC) Screening for prostate cancer Special screening for malignant neoplasm of prostate Wellness examination Abnormal ultrasound of liver- Primary Abnormal CT of liver- Primary Primary hypertension (CMS/HCC)- Primary Unspecified essential hypertension Chronic hepatitis C without hepatic coma (CMS/HCC) Seasonal allergies Allergic rhinitis, cause unspecified Elevated fasting glucose Impaired fasting glucose Anxiety, generalized (CMS/HCC) Type 2 diabetes mellitus without complication, without long-term current use of insulin- Primary Primary hypertension (CMS/HCC) Unspecified essential hypertension Other cirrhosis of liver Anxiety, generalized (CMS/HCC) Type 2 diabetes mellitus without complication, without long-term current use of insulin- Primary Primary hypertension (CMS/HCC) Unspecified essential hypertension Anxiety, generalized (CMS/HCC) Type 2 diabetes mellitus without complication, without long-term current use of insulin- Primary Primary hypertension (CMS/HCC) Unspecified essential hypertension Other cirrhosis of liver Anxiety, generalized (CMS/HCC) Prostate cancer screening Special screening for malignant neoplasm of prostate Chronic hepatitis C without hepatic coma (CMS/HCC) Seasonal allergies Allergic rhinitis, cause unspecified [facility] - Reported* Type Description Date Medical History hepatitis C [facility] Other Summary Purpose Family History No Family [...] section and content) DATE CREATED AUTHOR 09/21/2021 [facility] DATE CREATED AUTHOR AUTHOR'S ORGANIZ ATION 05/01/2022 [facility] DATE CREATED AUTHOR AUTHOR'S ORGANIZ ATION 10/27/2024 [facility] Care Teams (unrecognized sec tion and content) Team Status: Inactive Member Role Status Dates Bg Perez MD Attending Provider Active Shaikh Eryn MD Primary Care Provider Active Team Status: Active Member Role Status Dates Shaikh Eryn MD Primary Care Provider Active 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 Specialty Start Date End Date Paolo Paz MD [address] [place] [phone] PCP - General Family Medicine 03/01/24 Elham Campuzano NP [address] [place] [address] Nurse Practitioner Family Medicine 03/01/24 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 Specialty Start Date End Date Paolo Paz MD [address] [place] [phone] PCP - General Family Medicine 03/01/24 Elham Campuzano NP [address] [place] [address] Nurse Practitioner Family Medicine 03/01/24 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 Specialty Start Date End Date Paolo Paz MD [address] [place] [phone] PCP - General Family Medicine 03/01/24 Elham Campuzano NP [address] [place] [address] Nurse Practitioner Family Medicine 03/01/24 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 Specialty Start Date End Date Paolo Paz MD [address] [place] [phone] PCP - General Family Medicine 03/01/24 Elham Campuzano NP [address] [place] [address] Nurse Practitioner Family Medicine 03/01/24 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 Specialty Start Date End Date Paolo Paz MD [address] [place] [address] PCP - General Family Medicine 03/01/24 Elham Campuzano NP [address] [place] [address] Nurse Practitioner Family Medicine 03/01/24 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 Specialty Start Date End Date Paolo Paz MD [address] [place] [address] PCP - General Family Medicine 03/01/24 Elham Campuzano NP [address] [place] [address] Nurse Practitioner Family Medicine 03/01/24 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 Specialty Start Date End Date Paolo Paz MD [address] [place] [address] PCP - General Family Medicine 03/01/24 Elham Campuzano NP [address] [place] [address] Nurse Practitioner Family Medicine 03/01/24 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 Specialty Start Date End Date Paolo Paz MD [address] [place] [address] PCP - General Family Medicine 03/01/24 Elham Campuzano NP [address] [place] [address] Nurse Practitioner Family Medicine 03/01/24 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 Specialty Start Date End Date Paolo Paz MD [address] [place] [address] PCP - General Family Medicine 03/01/24 Elham Campuzano NP [address] [place] [address] Nurse Practitioner Family Medicine 03/01/24 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 Specialty Start Date End Date Paolo Paz MD [address] [place] [address] PCP - General Family Medicine 03/01/24 Elham Campuzano NP [address] [place] [address] Nurse Practitioner Family Medicine 03/01/24 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 Specialty Start Date End Date Paolo Paz MD [address] [place] [address] PCP - General Family Medicine 03/01/24 Elham Campuzano NP [address] [place] [address] Nurse Practitioner Family Medicine 03/01/24 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 Specialty Start Date End Date Paolo Paz MD [address] [place] [address] PCP - General Family Medicine 03/01/24 Elham Campuzano NP [address] [place] [address] Nurse Practitioner Family Medicine 03/01/24 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 Specialty Start Date End Date Paolo Paz MD [address] [place] [address] PCP - General Family Medicine 03/01/24 Elham Campuzano NP [address] [place] [address] Nurse Practitioner Family Medicine 03/01/24 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 Specialty Start Date End Date Paolo Paz MD [address] [place] [address] PCP - General Family Medicine 03/01/24 Elham Campuzano NP [address] [place] [address] Nurse Practitioner Family Medicine 03/01/24 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 Specialty Start Date End Date Paolo Paz MD [address] [place] [address] PCP - General Family Medicine 03/01/24 Elham Campuzano NP [address] [place] [address] Nurse Practitioner Family Medicine 03/01/24 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 Specialty Start Date End Date Paolo Paz MD [address] [place] [address] PCP - General Family Medicine 03/01/24 Elham Campuzano NP [address] [place] [address] Nurse Practitioner Family Medicine 03/01/24 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 Specialty Start Date End Date Paolo Paz MD [address] [place] [address] PCP - General [facility] 03/01/24 Elham Campuzano NP [address] [place] [address] Nurse Practitioner Family Medicine 03/01/24 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 Specialty Start Date End Date Paolo Paz MD [address] [place] [address] PCP - General [facility] 03/01/24 Elham Campuzano NP [address] [place] [address] Nurse Practitioner Family Medicine 03/01/24 Goals (unrecognized section and content) Goals may be documented in a n alternate sectionNo Information REASON FOR VISIT (unrecogniz ed section and content) Reason Onset Date Comments Med Refill 05/03/2024 Reason Comments Follow-up Reason Comments Follow-up BROUGHT MEDS Reason Onset Date Comments Med Refill 07/22/2024 Reason Onset Date Comments Med Refill 07/26/2024 Reason Comments Med Refill FOR RECORDS PERTAINING TO PATIENTS WHO ARE [...] BE BASED ON THE PRIMARY CLINICAL RECORDS. [employer] [facility]. provides no warranty or guarantee of the accuracy or completeness of information in this document.
[2024-11-02 11:15] LABS: Bilirubin Urine NEGATIVE (NEGATIVE); Blood Urine NEGATIVE (NEGATIVE); Clarity Urine CLEAR (CLEAR); Color Urine LT. YELLOW (YELLOW); Glucose Urine UA NEGATIVE (NEGATIVE); Ketones Urine NEGATIVE (NEGATIVE); Leukocyte Esterase Urine NEGATIVE (NEGATIVE); Nitrite Urine NEGATIVE (NEGATIVE); Protein Urine NEGATIVE (NEG/TRACE); Specific Gravity Urine 1.015 (1.005-1.025); Urobilinogen Urine 0.2 EU/dL (0.2-1.0)
[2024-11-02 11:18] LABS: Urine Microscopic Indicated NO
[2024-11-02 11:22] LABS: Creatinine Urine Random 91.03 mg/dL (20.00-300.00); Microalbum Creatinine Ratio Ur 14.2 mg/g (0.0-29.9); Microalbumin Urine Random <1.3 mg/dL (<=30.0)
[2024-11-02 11:25] LABS: Alanine Aminotransferase 19 U/L (16-63); Albumin Globulin Ratio 1.1; Albumin Level 4.1 g/dL (3.4-5.0); Alkaline Phosphatase 49 U/L (46-116); Anion Gap 11.4; Aspartate Amino Transferase 11 U/L (15-37); BUN Creatinine Ratio 17.8; Bilirubin Total 0.6 mg/dL (0.2-1.0); Calcium 9.2 mg/dL (8.5-10.1); Carbon Dioxide 30.9 mmol/L (21.0-32.0); Chloride 101 mmol/L (98-107); Chol HDL Ratio 2.9; Cholesterol 156 mg/dL (<=200); Estimated GFR (African America >60 (>=60 mL/min/1.73m^2); Estimated GFR (Non-African Ame >60 (>=60 mL/min/1.73m^2); Globulin 3.9 g/dL; Glucose 170 mg/dL (74-106); HDL Cholesterol 53 mg/dL (40-60); LDL Cholesterol Calculated 85.8 mg/dL; Potassium 4.3 mmol/L (3.5-5.1); Sodium 139 mmol/L (136-145); Triglycerides 86 mg/dL (<=150); VLDL CHOLESTEROL 17.2 mg/dL
[2024-11-02 11:44] LABS: Prostate Specific Antigen Scrn 0.19 ng/mL (<=4.00)
== END 2024-11-02 10:05 | disposition home or self-care (01) ==
LOC: LAB 10:06
PROVIDERS: PCP Nurse Practitioner; Visit Provider Nurse Practitioner
DX: Z12.5 Encounter for screening for malignant neoplasm of prostate (principal); I10 Essential (primary) hypertension; E11.9 Type 2 diabetes mellitus without complications; K74.69 Other cirrhosis of liver
CPT/HCPCS: 36415; 80053; 80061; 81003; 82043; 82570; 85025; G0103

== ENCOUNTER 2025-03-22 09:57 | Outpatient (OUT) | payer MEDICARE, SELFPAY ==
--- OUTSIDE RECORDS SUMMARY | 2025-03-22 10:00 | XMS_ITS | Encounter Summary ---
Author Organization [facility] Address [address] [place] [address] Care Team Providers Care Pantograph Ii Engraver Name Role Phone Paolo Paz MD Primary Care Provider [phone] Paolo Paz MD Primary Care Provider [phone] Shaikh MIRANDA Cerna Primary Care Provider [phone] Paolo Paz MD Primary Care Provider [phone] Elham Campuzano NP Unavailable [phone] Encounter Details Date Type Department Care Team (Late st Contact Info) Description 07/25/2023 Abstract [facility] [address] [place] [address] Shaikh Cerna MD [address] [place] [address] Social History Tobacco Use Types Packs/Day Years Used Date Smoking Tobacco: Never Assessed Sex and Gender Information Value Date Recorded Sex Assigned at Not on file Legal Sex Male 8:13 AM EDT Gender Identity Not on file Sexual Orientation Not on file documented as of this encounter Plan of Treatment Upcoming Encounters Date Type Department Care Team (Late st Contact Info) Description 04/05/2025 2:30 PM EDT [facility] [address] [place] [address] Joanne Vargas NP [address] [place] [address] documented as of this encounter Visit Diagnoses Not on filedocumented in this encounter Care Teams Pantograph Ii Engraver Relationship Specialty Start Date End Date Paolo Paz MD PCP - General Family Medicine 02/10/23 08/17/23 Paolo Paz MD [address] [place] [address] PCP - General Family Medicine 08/18/23 09/15/23 Shaikh Cerna MD [address] [place] [address] PCP - General Internal Medicine 09/16/23 02/29/24 Paolo Paz MD [address] [place] [address] PCP - General Family Medicine 03/01/24 Elham Campuzano NP [address] [place] [address] Nurse Practitioner Family Medicine 03/01/24 documented as of this encounter
--- OUTSIDE RECORDS SUMMARY | 2025-03-22 10:00 | XMS_ITS | Encounter Summary ---
Author Organization [facility] Address [address] [facility] [place] [address] Care Team Providers Care Oracle Fusion Middleware Developer Name Role Phone Paolo Paz MD Primary Care Provider [phone] Elham Campuzano NP Unavailable [phone] Encounter Details Date Type Department Care Team (Late st Contact Info) Description 06/21/[address] [facility] [address] [place] [address] Elham Campuzano NP Social History Tobacco Use Types Packs/Day Years Used Date Smoking Tobacco: Never Passive Smoke Exposure: Never Smokeless Tobacco: Never Alcohol Use Standard Drinks/Week Comments Never 0 (1 standard drink = 0.6 oz pur e alcohol) PHQ-2 Answer Date Recorded Patient Health Questionnaire-2 Score 2 09/16/2023 Sex and Gender Information Value Date Recorded Sex Assigned at Not on file Legal Sex Male 8:13 AM EDT Gender Identity Not on file Sexual Orientation Not on file documented as of this encounter Plan of Treatment Upcoming Encounters Date Type Department Care Team (Late st Contact Info) Description 04/05/2025 2:30 PM EDT Office Visit [facility] [address] [place] [address] Joanne Vargas NP [address] [place] [address] documented as of this encounter Visit Diagnoses Not on filedocumented in this encounter Care Teams Oracle Fusion Middleware Developer Relationship Specialty Start Date End Date Paolo Paz MD [address] [place] [address] PCP - General Family Medicine 03/01/24 Elham Campuzano NP [address] [place] [address] Nurse Practitioner Family Medicine 03/01/24 documented as of this encounter
--- OUTSIDE RECORDS SUMMARY | 2025-03-22 10:00 | XMS_ITS | Clinical Summary ---
Author Organization [facility] Address [address] [place] [address] Care Team Providers Care Steel Tester Name Role Phone Paolo Paz MD Primary Care Provider [phone] Elham Campuzano NP Unavailable [phone] Allergies No known active allergies Medications Lancets 30G miscIndications: Type 2 diabetes mellitus without complication, without long-term current use of insulin ([facility]) 1 each 2 (two) times a day as needed (hyperglucemia/h ypoglycemia) 100 each 2 4 Active Blood Glucose Monitoring Suppl (D-Care Glucometer) w/Device kitIndications:T ype 2 diabetes mellitus without complication, without long-term current use of insulin ([facility]) 1 each Daily 1 kit 4 Active Continuous Glucose Sky Cap (Dexcom G7 Sky Cap) deviceIndication s:Type 2 diabetes mellitus without complication, without long-term current use of insulin ([facility]) 1 each continuously 1 each 5 Active glucose blood (Cool Blood Glucose Test Strips) test stripIndications :Type 2 diabetes mellitus without complication, without long-term current use of insulin ([facility]) Daily Use as instructed 100 each 3 5 026 Active metFORMIN XR (Glucophage-XR) 500 MG 24 hr tabletIndication s:Type 2 diabetes mellitus without complication, without long-term current use of insulin (HCC) Take 1 tablet (500 mg) by mouth in the evening. Take with meals Do not crush, chew, or split. 90 tablet 1 5 025 Active Loratadine 10 MG capsuleIndicatio ns:Seasonal allergies Take 10 mg by mouth Daily 90 capsule 1 5 025 Active glipiZIDE (Glucotrol) 5 MG tabletIndication s:Type 2 diabetes mellitus without complication, without long-term current use of insulin (HCC) Take 1 tablet (5 mg) by mouth in the morning and 1 tablet (5 mg) in the evening. Take before meals. 180 tablet 5 025 Active furosemide (Lasix) 20 MG tabletIndication s:Primary hypertension,Oth er cirrhosis of liver (HCC) Take 1 tablet (20 mg) by mouth Daily 90 tablet 1 5 025 Active folic acid (Folvite) 1 MG tabletIndication s:Other cirrhosis of liver (HCC) Take 1 tablet (1 mg) by mouth Daily 90 tablet 1 5 025 Active fluticasone (Flonase) 50 MCG/ACT nasal sprayIndications :Seasonal allergies Administer 1-2 sprays into each nostril Daily Shake gently. Before first use, prime pump. After use, clean tip and replace cap. 48 g 1 5 026 Active busPIRone (Buspar) 5 MG tabletIndication s:Anxiety, generalized Take 1 tablet (5 mg) by mouth in the morning and 1 tablet (5 mg) before bedtime. 180 tablet 1 5 025 Active losartan (Cozaar) 25 MG tabletIndication s:Primary hypertension Take 1 tablet (25 mg) by mouth Daily 90 tablet 5 025 Active spironolactone (Aldactone) 50 MG tabletIndication s:Primary hypertension,Oth er cirrhosis of liver (HCC) Take 1 tablet (50 mg) by mouth Daily 90 tablet 5 025 Active Active Problems Problem Noted Date Diagnosed Date Sensorineural hearing loss (SNHL) of both ears 0 01/14/2025 Bilateral hearing loss 12/07/2024 Prostate cancer screening 10/26/2024 Overview (11/02/2024): PSA: 0.19 11/02/24 Type 2 diabetes mellitus without complication Assessment & Plan (01/25/2025 1:14 PM EDT): Check blood sugars daily, notify if <70 [...] 7 Current meds: glipizide, and metformin A1c 6.9% 01/24/25 , 8.0% 10/26/24, 10.3% 07/20 Assessment & Plan (10/26/2024 1:40 PM EDT): Check blood sugars daily, notify if <70 [...] 8.0% 10/26/24, 10.3% 07/20 #2 sensors: lot [id number] 06/16/25 Assessment & Plan (09/14/2024 3:28 PM EST): Started patient on Metformin 500mg on 03/30 [...] persistent hypoglycemia/hyperglycemia on home glucose monitoring noted. Assessment & Plan (06/17/2024 2:12 PM EST): Started patient on Metformin 500mg on 03/30 for A1C of 10.9. Recheck ordered. Pt has not completed but states he will in the next two weeks. Denies any adverse effects or unwanted side effects from medication. Has not been checking BG at home. Anxiety, generalized 03/20/2024 Assessment & Plan (10/26/2024 1:30 PM EDT): Current meds: buspar YASMINE 7=3 Assessment & Plan (09/14/2024 3:19 PM EST): Has been taking Buspar 5mg BID. Reports no unwanted side effects form medication. Feels anxiety has improved since starting medication, states he feels much calmer . Continue current regimen. Assessment & Plan (06/17/2024 2:15 PM EST): Has been taking Buspar 5mg BID. Reports no unwanted side effects form medication. Feels anxiety has improved since starting medication, states he feels much calmer . Continue current regimen. Assessment & Plan (03/20/2024 9:26 AM EDT): Reports feeling anxious and restless as he ages. advised pt he needs some meds for this. Discussed non-pharmacological interventions and pharmacological interventions in detail with patient. Pt states understanding. Will trial Buspar 5mg BID. Elevated fasting glucose 03/18/2024 Overview (03/18/2024): A1C ordered CMP ordered. Continue to monitor Assessment & Plan (03/18/2024 3:06 PM EDT): A1c ordered. CMP ordered. Continue to monitor Seasonal allergies 03/18/[address] of liver 11/05/2023 Assessment & Plan (01/25/2025 6:48 AM EDT): CT 10/2023, was referred to GI for this Assessment & Plan (11/05/2023 2:02 PM EDT): Hx of Liver Cirrhosis and Hepatitis C. Multiple areas of hypovascularity on CT Liver with Contrast. 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 However, neoplastic process can not be definitely excluded. Will order CEA, AFP. Refer to GI Abnormal ultrasound of liver 10/20/2023 Assessment & Plan (10/20/2023 6:39 PM EDT): Multiple areas of echogenicity on US. Hx of liver cirrhosis and Hep C s/p rx Will order triple phase CT to delineate and improved visualization of lesions seen in US. Chronic hepatitis C without hepatic coma 024 Assessment & Plan (10/26/2024 1:26 PM EDT): Was referred to GI, was treated for Hep C 3 years ago, and cured Assessment & Plan (09/16/2023 4:26 PM EST): S/p rx in 2020 Has liver cirrhosis from chronic hepatitis C. Normal EGD/colonoscopy 2019. Vaccinated against Hep A, B, not interested in vaccination against pneumonia.. Stable, monitor as clinically indicated. Other cirrhosis of liver 09/16/2023 Assessment & Plan (10/26/2024 1:28 PM EDT): Current meds: lasix/aldactone Does not see GI at all Assessment & Plan (09/16/2023 4:26 PM EST): Due to chronic Hepatitis C. S/p rx. Patient on lasix, aldactone for volume control. Never had decompensated liver cirrhosis or hepatic failure. Normal EGD/colonoscopy 2019. Vaccination against Hep A, B, not interested in vaccination against pneumonia.. Stable, monitor as clinically indicated. US liver ordered for HCC surveillance. Primary hypertension 09/16/2023 Assessment & Plan (01/25/2025 6:44 AM EDT): Please check blood pressure daily and record DASH diet Limit caffeine Take medication as directed Contact office if chest pain, pressure, dizziness, shortness of breath, swelling legs Recommend slow position changes Current meds: spironolactone Assessment & Plan (10/26/2024 6:57 AM EDT): Please check blood pressure daily and record DASH diet Limit caffeine Take medication as directed Contact office if chest pain, pressure, dizziness, shortness of breath, swelling legs Recommend slow position changes Current meds: spironolactone Assessment & Plan (09/14/2024 3:18 PM EST): Currently taking Lasix 20mg Spironolactone 50mg Checks BP at home; Averages are typically around 130/70. Denies orthostatic changes, dizziness, cough, shortness of breath, swelling in extremities. Continue current regimen. Given BP log, advised pt to record BP and bring log back with them to next visit. Assessment & Plan (06/17/2024 2:16 PM EST): Currently taking Lasix 20mg Spironolactone 50mg Checks BP at home; Averages are 130/70. Denies orthostatic changes, dizziness, cough, shortness of breath, swelling in extremities. Continue current regimen. Given BP log, advised pt to record BP and bring log back with them to next visit. Assessment & Plan (03/18/2024 2:54 PM EDT): Checks BP at home. Well managed Slightly elevated today. Will continue to monitor Lasix 20mg Spironolactone 50mg Denies orthostatic changes Continue Assessment & Plan (09/16/2023 4:24 PM EST): Slightly above goal today but usually well controlled. C/w Lasix, aldactone. Monitor as needed. Check CBC, CMP to ensure electrolytes are at goal . Wellness examination 09/16/2023 Assessment & Plan (09/16/2023 4:27 PM EST): Patient here for Annual Wellness Exam. Reviewed medical, surgical and social hx. Reviewed medication list. Health related questions and concerns addressed and answered. Patient provided appropriate education on chronic medical conditions and prescription medications. Uptodate on cancer screening. He is interested in getting Shingles vaccine. Had Hep A, B vaccine in 2020. Routine labs ordered, along with PSA for prostate cancer screening. Encounters Date Type Department Care Team Description 02/14/2025 Refill [facility] [address] [place] [address] Joanne Vargas NP Primary hypertension ; Other cirrhosis of liver (HCC) 01/25/2025 1:00 PM EDT Office Visit [facility] [address] [place] [address] Joanne Vargas NP Type 2 diabetes mellitus without complication, without long-term current use of insulin (HCC) (Primary Dx); Primary hypertension ; Abnormal CT of liver; Anxiety, generalized ; Seasonal allergies; Other cirrhosis of liver (HCC) 01/25/2025 Bamboo flowsheet [facility] [address] [place] [address] Joanne Vargas NP from Last 3 Months Immunizations Immunization Administration Dates Next Due Hep A, Adult 03/10/2014,09/09/2013 Hep B, adult 03/10/2014,10/14/2013,09/09/2013 Influenza, High-dose Seasona l, Quadrivalent, Preservative Free 06/16/2023,06/04/2022,05/25/2021 Influenza, injectable, quadr ivalent, preservative free 05/09/2020 Novel [id number], preservative-free 09/18 Pneumococcal Conjugate PCV 20 07/15/2024 Tdap 09/09/2013 Family History Medical History Relation Name Comments Cancer Father Relation Name Status Comments Father Mother Social History Tobacco Use Types Packs/Day Years Used Date Smoking Tobacco: Never Passive Smoke Exposure: Never Smokeless Tobacco: Never Tobacco Cessation:Counseling Given: Not Answered Alcohol Use Standard Drinks/Week Comments Never 0 (1 standard drink = 0.6 oz pur e alcohol) PHQ-2 Answer Date Recorded Patient Health Questionnaire-2 Score 2 09/16/2023 Sex and Gender Information Value Date Recorded Sex Assigned at Not on file Legal Sex Male 8:13 AM EDT Gender Identity Not on file Sexual Orientation Not on file Last Filed Vital Signs Vital Sign Reading Time Taken Comments Blood Pressure 146/82 01/25/2025 1:03 PM EDT Pulse 69 01/25/2025 1:03 PM EDT Temperature 36.9 C (98.5 F) 01/25/2025 1:03 PM EDT Respiratory Rate 18 01/25/2025 1:03 PM EDT Oxygen Saturation 96% 01/25/2025 1:03 PM EDT Inhaled Oxygen Concentration - - Weight 99.2 kg (218 lb 12.8 oz) 01/25/2025 1:03 PM EDT Height 185.4 cm (6' 1 ) 09/14/2024 2:45 PM EST Body Mass Index 28.87 09/14/2024 2:45 PM EST Plan of Treatment Upcoming Encounters Date Type Department Care Team (Late st Contact Info) Description 04/05/2025 2:30 PM EDT [facility] [address] [place] [address] Joanne Vargas NP [address] [place] [address] Health Maintenance Due Date Last Done Comments CT Colonography 1956 FIT 1956 FOBT 1955 Sigmoidoscopy 1956 FIT-DNA 06/19/2023 06/19/2020 Influenza Vaccine (#1) 2025 3, 06/04/2022, 05/25/2021, Additional history exists Diabetes: Hemoglobin A1C 04/27/2025 01/25/2025, 04/0 07/2024 Diabetes: Urine Protein Screening 11/02/2025 025 Diabetes: Retinopathy Screening 05/24/2026 4 Colonoscopy 07/28/2029 07/28/2019 Colorectal Cancer Screening 07/28/2029 Pneumococcal Vaccine: 65+ Years Completed 4 Procedures Procedure Name Priority Date/Time Associated Diagnosis Comments POCT GLYCOSYLATED HEMOGLOBIN (HGB A1C) Routine 01/25/2025 1:14 PM EDT Type 2 diabetes mellitus without complication, without long-term current use of insulin (HCC) from Last 3 Months Results * (ABNORMAL) POCT glycosylated hemoglobin (Hb A1C) docked device (01/25/2025 1:14 PM EDT) Hemoglobin A1C 6.9 Blood Venous blood specimen / Unknown 01/25/2025 1:14 PM EDT us Joanne Vargas NP POINT OF CARE TEST ENTER/EDIT O RDERABLES Final Result from Last 3 Months Insurance MEDICARE Care Teams Steel Tester Relationship Specialty Start Date End Date Paolo Paz MD [address] [place] [address] PCP - General Family Medicine 03/01/24 Elham Campuzano NP [address] [place] [address] Nurse Practitioner Family Medicine 03/01/24
--- OUTSIDE RECORDS SUMMARY | 2025-03-22 10:00 | XMS_ITS | Encounter Summary ---
Author Organization [facility] Address [address] [facility] [place] [address] Care Team Providers Care Paper Coating Machine Operator Name Role Phone Shaikh MIRANDA Cerna Primary Care Provider [phone] Paolo Paz MD Primary Care Provider [phone] Elham Campuzano NP Unavailable [phone] Encounter Details Date Type Department Care Team (Late st Contact Info) Description 11/05/2023 Clinisync Result Encounter [facility] External Department Unsolicited Shaikh Crena MD [address] [place] [address] Social History Tobacco Use Types Packs/Day Years [...] 04/05/2025 2:30 PM EDT Office Visit [facility] [address] [place] [address] Joanne Vargas NP [address] [place] [address] documented as of this encounter Procedures Procedure Name Priority Date/Time Associated Diagnosis Comments CT ABDOMEN WO/W CON 11/05/2023 7 :25 AM EDT documented in this encounter Results * CT ABDOMEN WO/W CON (11/05/2023 7:25 AM EDT) Anatomical Region Laterality Modality Radiographic Nelli ging 11/05/2023 7:25 AM EDT Narrative 11/05/2023 7:27 AM EDT [facility] [place] [id number] CT Scan Report Signed Patient: STEFFI HIGHTOWER MR#: [id number] : 1955 Acct:[id number] Age/Sex: 68 / M ADM Date: 11/04/23 Loc: CT Attending Dr: Shaikh Brittni Sr Ordering Physician: Shaikh Orin Cerna Date of Service: 11/04/23 Procedure(s): CT abdomen wo/w con Accession Number(s): [id number] cc: Shaikh Orin Cerna The [address] [address] Patient Name: STEFFI HIGHTOWER MRN: [facility]:[id number] date: 1955 Sex: M Assigned Patient Location: CT Current Patient Location: Accession/Order Number: [id number] Exam Date: 11/04/2023 07:58 Report Date: 11/05/2023 07:25 At the request of: SHAIKH BRITTNI Procedure: CT abdomen wo/w con EXAMINATION: CT abdomen wo/w con HISTORY: Abnormal Ultrasound Of Liver R93.1 COMPARISON: 10/18/2023 TECHNIQUE: Axial, Coronal, and Sagittal images were created without and with non-ionic intravenous contrast material. Dose reduction techniques were achieved by using automated exposure control and/or adjustment of mA and/or kV according to patient size and/or use of iterative reconstruction technique. FINDINGS: LUNG BASES: No visible pulmonary or pleural disease. LIVER: Noncontrast exam demonstrates a subtle area of hyperdensity in the right hepatic lobe axial image #38, I favor artifact. Early arterial phase demonstrates multiple ill-defined areas of hypervascularity throughout both hepatic lobes corresponding to the ultrasound findings the largest area in the right hepatic lobe measuring 2.5 cm, axial image 33. These areas persist on portal venous phase with significant but not complete washout on delayed imaging BILIARY: 1.7 cm gallstone without cystitis PANCREAS: No lesion, fluid collection, ductal dilatation, or atrophy. SPLEEN: No enlargement or focal lesion. ADRENALS: No mass or enlargement. KIDNEYS: Left renal cortical hypodensities, nonenhancing, cyst. No hydronephrosis or focal mass BOWEL/MESENTERY: No visible mass, obstruction, or bowel wall thickening. Minimal stranding of the central mesentery, nonspecific. AORTA/VASCULAR: No aortic aneurysm or dissection. Moderate atherosclerosis RETROPERITONEUM: No mass or adenopathy. LYMPH NODES: Few scattered small to borderline mesenteric lymph nodes URINARY BLADDER: No visible focal wall thickening, lesion, or calculus. PELVIC ORGANS: No visible mass. Pelvic organs appropriate for patient age. ABDOMINAL WALL: No mass or hernia. BONES: No bony lesion or fracture. OTHER: Negative. CT/CT abdomen wo/w con IMPRESSION: Multiple areas of hypervascularity throughout the liver corresponding to the ultrasound findings. The enhancement pattern is nonspecific. In light of the patient's underlying hepatitis, consider regenerative nodules. Additional nonneoplastic, and neoplastic etiologies should be considered within the differential diagnosis Electronically authenticated by: KIMBERLEY LEPE Date: 11/05/2023 07:25 Dictated By: Kimberley Lepe M.D. Signed By: 11/05/23726 DD/ 4 TD/TT: Service Promoter Salesperson: Procedure Note Radiology, Radiologist, MD - 11/05/2023 [place] [address] CT Scan Report Signed Patient: STEFFI HIGHTOWER LMR#: [id number] : 6Acct:[id number] Age/Sex: 68 / MADM Date: 11/04/23 Loc: CT Attending Dr: Shaikh Brittni Sr Ordering Physician: Shaikh Orin Cerna Date of Service: 11/04/23 Procedure(s): CT abdomen wo/w con Accession Number(s): [id number] cc: Shaikh Orin Cerna [address] [address] Patient Name: STEFFI HIGHTOWER MRN: [facility]:[id number] date: 1955 Sex: M Assigned Patient Location: CT Current Patient Location: Accession/Order Number: [id number] Exam Date: 11/04/2023 07:58 Report Date: 11/05/2023 07:25 At the request of: SHAIKH BRITTNI Procedure: CT abdomen wo/w con EXAMINATION: CT abdomen wo/w con HISTORY: Abnormal Ultrasound Of Liver R93.1 COMPARISON: 10/18/2023 TECHNIQUE: Axial, Coronal, and Sagittal images were created without andwith non-ionic intravenous contrast material. Dose reduction techniques were achieved by using automated exposure control and/or adjustment of mAand/or kV according to patient size and/or use of iterative reconstructiontechnique. FINDINGS: LUNG BASES: No visible pulmonary or pleural disease. LIVER: Noncontrast exam demonstrates a subtle area of hyperdensity in the right hepatic lobe axial image #38, I favor artifact. Early arterial phase demonstrates multiple ill-defined areas of hypervascularity throughoutboth hepatic lobes corresponding to the ultrasound findings the largest area inthe right hepatic lobe measuring 2.5 cm, axial image 33. These areas persiston portal venous phase with significant but not complete washout on delayed imaging BILIARY: 1.7 cm gallstone without cystitis PANCREAS: No lesion, fluid collection, ductal dilatation, or atrophy. SPLEEN: No enlargement or focal lesion. ADRENALS: No mass or enlargement. KIDNEYS: Left renal cortical hypodensities, nonenhancing, cyst. No hydronephrosis or focal mass BOWEL/MESENTERY: No visible mass, obstruction, or bowel wall thickening. Minimal stranding of the central mesentery, nonspecific. AORTA/VASCULAR: No aortic aneurysm or dissection. Moderate atherosclerosis RETROPERITONEUM: No mass or adenopathy. LYMPH NODES: Few scattered small to borderline mesenteric lymph nodes URINARY BLADDER: No visible focal wall thickening, lesion, or calculus. PELVIC ORGANS: No visible mass. Pelvic organs appropriate for patient age. ABDOMINAL WALL: No mass or hernia. BONES: No bony lesion or fracture. OTHER: Negative. CT/CT abdomen wo/w con IMPRESSION: Multiple areas of hypervascularity throughout the liver corresponding tothe ultrasound findings. The enhancement pattern is nonspecific. In light ofthe patient's underlying hepatitis, consider regenerative nodules. Additional nonneoplastic, and neoplastic etiologies should be considered within the differential diagnosis Electronically authenticated by: KIMBERLEY LEPE Date: 11/05/2023 07:25 Dictated By: Kimberley Lepe M.D. Signed By:11/05/23726 DD/ 4 TD/TT: Service Promoter Salesperson: us Shaikh Brittni JEAN IMG XR PROCEDURES Final Result documented in this encounter Visit Diagnoses Not on filedocumented in this encounter Care Teams Paper Coating Machine Operator Relationship Specialty Start Date End Date Shaikh Cerna MD [address] [place] [address] PCP - General Internal Medicine 09/16/23 02/29/24 Paolo Paz MD [address] [place] [address] PCP - General Family Medicine 03/01/24 Elham Campuzano NP [address] [place] [address] Nurse Practitioner Family Medicine 03/01/24 documented as of this encounter
--- OUTSIDE RECORDS SUMMARY | 2025-03-22 10:00 | XMS_ITS | Encounter Summary ---
Author Organization [facility] Address [address] [facility] [place] [address] Care Team Providers Care Doper Operator Name Role Phone Paolo Paz MD Primary Care Provider [phone] Elham Campuzano NP Unavailable [phone] Encounter Details Date Type Department Care Team (Late st Contact Info) Description 11/02/2024 Abstract [facility] [address] [place] [address] Joanne Vargas NP [address] [place] [address] Social History Tobacco Use Types Packs/Day Years [...] 04/05/2025 2:30 PM EDT Office Visit [facility] [address] [place] [address] Joanne Vargas NP [address] [place] [address] documented as of this encounter Visit Diagnoses Not on filedocumented in this encounter Care Teams Doper Operator Relationship Specialty Start Date End Date Paolo Paz MD [address] [place] [address] PCP - General Family Medicine 03/01/24 Elham Campuzano NP [address] [place] [address] Nurse Practitioner Family Medicine 03/01/24 documented as of this encounter
--- OUTSIDE RECORDS SUMMARY | 2025-03-22 10:00 | XMS_ITS | Encounter Summary ---
Author Organization [facility] Address [address] [place] [address] Care Team Providers Care Cupola Melter Helper Name Role Phone Paolo Paz MD Primary Care Provider [phone] Elham Campuzano EMPLOYMENT CASE MANAGER Unavailable [phone] Reason for Visit * Reason Comments Med Refill Encounter Details Date Type Department Care Team (Late st Contact Info) Description 09/14/2024 Refill [facility] [address] [place] [address] Elham Campuzano NP Type 2 diabetes mellitus without complication, without long-term current use of insulin ([facility]) Social History Tobacco Use Types Packs/Day Years [...] on file documented as of this encounter Miscellaneous Notes * Telephone Encounter - Oneyda Hogue - 09/27/2024 2:29 PM EST Patient stopped in, he was Elham's patient. I put in a refill for a Dexcom G7 sensor. He said hethought they should last longer then ten days. He uses [facility] in [place]. JN * Telephone Encounter - Elham Campuzano NP - 09/14/2024 3:43 PM EST Medication ordered today. documented in this encounter Plan of Treatment Upcoming Encounters Date Type Department Care Team (Late st Contact Info) Description 04/05/2025 2:30 PM EDT Office Visit [facility] [address] [place] [address] Joanne Vargas NP [address] [place] [address] documented as of this encounter Visit Diagnoses Diagnosis Type 2 diabetes mellitus without complication, without long-term current use of insulin (HCC) documented in this encounter Care Teams Cupola Melter Helper Relationship Specialty Start Date End Date Paolo Paz MD [address] [place] [address] PCP - General Family Medicine 03/01/24 Elham Campuzano NP [address] [place] [address] Nurse Practitioner Family Medicine 03/01/24 documented as of this encounter
--- OUTSIDE RECORDS SUMMARY | 2025-03-22 10:00 | XMS_ITS | Encounter Summary ---
Author Organization [facility] Address [address] [facility] [place] [address] Care Team Providers Care Arts Administrator Or Manager Name Role Phone Paolo Paz MD Primary Care Provider [phone] Elham Campuzano NP Unavailable [phone] Encounter Details Date Type Department Care Team (Late st Contact Info) Description 12/06/2024 Orders Only [facility] [address] [place] [address] Joanne Vargas NP [address] [place] [address] Social History Tobacco Use Types Packs/Day Years [...] 04/05/2025 2:30 PM EDT Office Visit [facility] [address] [place] [address] Joanne Vargas NP [address] [place] [address] documented as of this encounter Visit Diagnoses Not on filedocumented in this encounter Care Teams Arts Administrator Or Manager Relationship Specialty Start Date End Date Paolo Paz MD [address] [place] [address] PCP - General Family Medicine 03/01/24 Elham Campuzano NP [address] [place] [address] Nurse Practitioner Family Medicine 03/01/24 documented as of this encounter
--- OUTSIDE RECORDS SUMMARY | 2025-03-22 10:00 | XMS_ITS | Encounter Summary ---
Author Organization [facility] Address [address] [facility] [place] [address] Care Team Providers Care Party Host Name Role Phone Paolo Paz MD Primary Care Provider [phone] Elham Campuzano ADVERTISING COPY WRITER Unavailable [phone] Encounter Details Date Type Department Care Team (Late st Contact Info) Description 11/08/2024 Abstract [facility] [address] [place] [address] Paolo Paz MD [address] [place] [address] Social History Tobacco Use Types Packs/Day Years [...] 04/05/2025 2:30 PM EDT Office Visit [facility] [address] [place] [address] Joanne Vargas NP [address] [place] [address] documented as of this encounter Visit Diagnoses Not on filedocumented in this encounter Care Teams Party Host Relationship Specialty Start Date End Date Paolo Paz MD [address] [place] [address] PCP - General Family Medicine 03/01/24 Elham Campuzano NP [address] [place] [address] Nurse Practitioner Family Medicine 03/01/24 documented as of this encounter
--- OUTSIDE RECORDS SUMMARY | 2025-03-22 10:00 | XMS_ITS | Encounter Summary ---
Author Organization [facility] Address [address] [facility] [place] [address] Care Team Providers Care Continuity Manager Name Role Phone Paolo Paz MD Primary Care Provider [phone] Elham Campuzano NP Unavailable [phone] Encounter Details Date Type Department Care Team (Late st Contact Info) Description 06/28/2024 Orders Only [facility] [address] [place] [address] Elham Campuzano NP Type 2 diabetes mellitus without complication, without long-term current use of insulin (HCC) (Primary Dx) Social History Tobacco Use Types Packs/Day Years [...] EDT Office Visit [facility] [address] [place] [address] Joanne Vargas NP [address] [place] [address] documented as of this encounter Visit Diagnoses Diagnosis Type 2 diabetes mellitus without complication, without long-term current use of insulin (HCC)- Primary documented in this encounter Care Teams Continuity Manager Relationship Specialty Start Date End Date Paolo Paz MD [address] [place] [address] PCP - General Family Medicine 03/01/24 Elham Campuzano NP [address] [place] [address] Nurse Practitioner Family Medicine 03/01/24 documented as of this encounter
--- OUTSIDE RECORDS SUMMARY | 2025-03-22 10:00 | XMS_ITS | Encounter Summary ---
Author Organization [facility] Address [address] [facility] [place] [address] Care Team Providers Care Gi Asst Name Role Phone Paolo Paz MD Primary Care Provider [phone] Elham Campuzano NP Unavailable [phone] Reason for Visit * Reason Comments Med Refill Encounter Details Date Type Department Care Team (Late st Contact Info) Description 03/26/2024 Refill [facility] [address] [place] [address] Elham Campuzano NP Type 2 diabetes mellitus without complication, without long-term current use of insulin (HCC) Social History Tobacco Use Types Packs/Day Years [...] Encounters Date Type Department Care Team (Late Contact Info) Description 04/05/2025 2:30 PM EDT Office Visit [facility] [address] [place] [address] Joanne Vargas NP [address] [place] [address] documented as of this encounter Visit Diagnoses Diagnosis Type 2 diabetes mellitus without complication, without long-term current use of insulin (HCC) documented in this encounter Care Teams Gi Asst Relationship Specialty Start Date End Date Paolo Paz MD [address] [place] [address] PCP - General Family Medicine 03/01/24 Elham Campuzano NP [address] [place] [address] Nurse Practitioner Family Medicine 03/01/24 documented as of this encounter
--- OUTSIDE RECORDS SUMMARY | 2025-03-22 10:01 | XMS_ITS | Encounter Summary ---
Author Organization [facility] Address [address] [facility] [place] [address] Care Team Providers Care Highway Patrol Pilot Name Role Phone Shaikh MIRANDA Cerna Primary Care Provider [phone] Paolo Paz MD Primary Care Provider [phone] Elham Campuzano NP Unavailable [phone] Encounter Details Date Type Department Care Team (Late st Contact Info) Description 10/20/2023 Clinisync Result Encounter [facility] External Department Unsolicited Shaikh Cerna MD [address] [place] [address] Social History Tobacco Use Types Packs/Day Years [...] Office Visit [facility] [address] [place] [address] Joanne Vargas NP [address] [place] [address] documented as of this encounter Procedures Procedure Name Priority Date/Time Associated Diagnosis Comments US RIGHT UPPER QUADRANT 10/20/2023 7:19 AM EDT documented in this encounter Results * US RIGHT UPPER QUADRANT (10/20/2023 7:19 AM EDT) Anatomical Region Laterality Modality Other 10/20/2023 7:19 AM EDT Narrative 10/20/2023 7:21 [place] [address] Ultrasound Report Signed Patient: STEFFI HIGHTOWER MR#: [id number] : 1955 Acct:[id number] Age/Sex: 68 / M ADM Date: 10/18/23 Loc: US Attending Dr: Shaikh Brittni Sr Ordering Physician: Shaikh Orin Cerna Date of Service: 10/18/23 Procedure(s): US right upper quadrant Accession Number(s): [id number] cc: Shaikh Orin Cerna [place] [id number] Patient Name: STEFFI HIGHTOWER MRN: [id number] date: 1955 Sex: M Assigned Patient Location: US Current Patient Location: Accession/Order Number: [id number] Exam Date: 10/18/2023 11:15 Report Date: 10/20/2023 07:19 At the request of: SHAIKH BRITTNI Procedure: US right upper quadrant EXAM: US right upper quadrant HISTORY: Chronic hepatitis C without hepatic coma B18.2 COMPARISON: None. TECHNIQUE: Grayscale, color and Doppler FINDINGS: The liver is normal in size measuring 19.1 cm. Normal contour. Diffusely echogenic liver. Multiple areas of hypoechogenicity scattered throughout the liver are nonspecific possibly representing fatty sparing but indeterminate. Hepatopedal flow in the main portal vein with velocity 23 cm/s. The visualized pancreas is normal. The gallbladder is normal in size. The wall measures 1.7 mm, normal. Negative sonographic Woods sign. Echogenic focus within the gallbladder lumen measuring 2.7 cm, cholelithiasis. The common bile duct measures 5.2 mm. The right kidney is normal measuring 12.2 x 6.4 x 6.1 cm US/US right upper quadrant IMPRESSION: Echogenic liver with areas of hypoechogenicity, indeterminate. Consider multiphasic CT or MRI for further evaluation Electronically authenticated by: KIMBERLEY LEPE Date: 10/20/2023 07:19 Dictated By: Kimberley Lepe M.D. Signed By: 10/20/23720 DD/ 8 TD/TT: Grain Shipper: Procedure Note Radiology, Radiologist, MD - 10/20/2023 [place] [address] Ultrasound Report Signed Patient: STEFFI HIGHTOWER LMR#: [id number] : 1955cct:[id number] Age/Sex: 68 / MADM Date: 10/18/23 Loc: US Attending Dr: Shaikh Brittni Sr Ordering Physician: Shaikh Orin Cerna Date of Service: 10/18/23 Procedure(s): US right upper quadrant Accession Number(s): [id number] cc: Shaikh Orin Cerna The [address] [address] Patient Name: STEFFI HIGHTOWER MRN: [facility]:[id number] date: 1955 Sex: M Assigned Patient Location: US Current Patient Location: Accession/Order Number: [id number] Exam Date: 10/18/2023 11:15 Report Date: 10/20/2023 07:19 At the request of: SHAIKH BRITTNI Procedure: US right upper quadrant EXAM: US right upper quadrant HISTORY: Chronic hepatitis C without hepatic coma B18.2 COMPARISON: None. TECHNIQUE: Grayscale, color and Doppler FINDINGS: The liver is normal in size measuring 19.1 cm. Normal contour. Diffusely echogenic liver. Multiple areas of hypoechogenicity scattered throughoutthe liver are nonspecific possibly representing fatty sparing butindeterminate. Hepatopedal flow in the main portal vein with velocity 23 cm/s. The visualized pancreas is normal. The gallbladder is normal in size. The wall measures 1.7 mm, normal.Negative sonographic Woods sign. Echogenic focus within the gallbladder lumen measuring 2.7 cm, cholelithiasis. The common bile duct measures 5.2 mm. The right kidney is normal measuring 12.2 x 6.4 x 6.1 cm US/US right upper quadrant IMPRESSION: Echogenic liver with areas of hypoechogenicity, indeterminate. Consider multiphasic CT or MRI for further evaluation Electronically authenticated by: KIMBERLEY LEPE Date: 10/20/2023 07:19 Dictated By: Kimberley Lepe M.D. Signed By:10/20/23720 DD/ 8 TD/TT: Grain Shipper: us Shaikh Brittni [facility] Final Result documented in this encounter Visit Diagnoses Not on filedocumented in this encounter Care Teams Highway Patrol Pilot Relationship Specialty Start Date End Date Shaikh Cerna MD [address] [place] [address] PCP - General Internal Medicine 09/16/23 02/29/24 Paolo Paz MD [address] [place] [address] PCP - General Family Medicine 03/01/24 Elham Campuzano NP [address] [place] [address] Nurse Practitioner Family Medicine 03/01/24 documented as of this encounter
--- OUTSIDE RECORDS SUMMARY | 2025-03-22 10:05 | XMS_ITS | CCD ---
Author Organization [facility] Care Team Providers Care Flat Clothier Name Role Phone KIMBERLEY WALSH JR Admitting [...] Admitting Unavailable MD Bg Perez Attending Provider [phone] MD Pat Cerna Primary Care Provider Bg Perez Attending Unavailable Bg Perez Admitting Unavailable Eryn, Primary Care Unavailable Diamond Bear Unavailable Paolo Paz MD Primary Care Provider Justen MOBILITY MANAGER, Elham Unavailable [phone] Justen MOBILITY MANAGER, Elham Unavailable ELHAM CAMPUZANO Attending UnavailJOANNE Encinas Attending Unavailable ELHAM CAMPUZANO Attending ELHAM Valdivia Attending Heike e JOANNE VARGAS Attending Unavailable Medications Current Medications Medication Drug Class(es) Dates Sig (Normalized) Sig (Original) Ascorbic Acid (1 source) Vitamin C Vitamin C Active Blood Glucose Monitoring Suppl (D-Care Glucometer) w/Device kit (20 sources) Start: 07-24-2024 Blood Glucose Monitoring Suppl (D-Care Glucometer) w/Device kit Indications: Type 2 diabetes mellitus without complication, without long-term current use of insulin ([facility]) 1 each Daily 1 kit 07/24/2024 Active Start: 07-24-2024 Blood Glucose Monitoring Suppl (D-Care Glucometer) w/Device kit Indications: Type 2 diabetes mellitus without complication, without long-term current use of insulin 1 each Daily 1 kit 07/24/2024 Active Start: 07-24-2024 Blood Glucose Monitoring Suppl (D-Care Glucometer) w/Device kit Indications: Type 2 diabetes mellitus without complication, without long-term current use of insulin (CMS/[facility]) 1 each Daily 1 kit 07/24/2024 Active [...] complication, without long-term current use of insulin (CMS/[facility]) 1 each Daily 1 kit 06/17/2024 Active busPIRone hydrochloride 5 mg oral tablet (20 sources) Start: 03-20-2024 End: 04-25-2025 take 1 tablet by mouth in the morning busPIRone (Buspar) 5 MG tablet Indications: Anxiety, generalized Take 1 tablet (5 mg) by mouth in the morning and 1 tablet (5 mg) before bedtime. 180 tablet 1 01/25/2025 04/25/2025 Active Continuous Glucose [facility] (Dexcom G7 [facility]) device (13 sources) Start: 09-14-2024 Continuous Glu cose [facility] (Dexcom G7 [facility]) device Indications: Type 2 diabetes mellitus without complication, without long-term current use of insulin (HCC) 1 each continuously 1 each 09/14/2024 Active Start: 09-14-2024 Continuous Glu cose [facility] (Dexcom G7 [facility]) device Indications: Type 2 diabetes mellitus without complication, without long-term current use of insulin 1 each continuously 1 each 09/14/2024 Active Start: 09-14-2024 Continuous Glu cose [facility] (Dexcom G7 [facility]) device Indications: Type 2 diabetes mellitus without complication, without long-term current use of insulin ([facility]/HCC) 1 each continuously 1 each 09/14/2024 Active Continuous Glucose Sensor (Dexcom G7 Sensor) misc (13 sources) Start: 11-16-2024 End: 12-16-2024 Continuous Glucose Sensor (D excom G7 Sensor) mis Indications: Type 2 diabetes mellitus without complication, without long-term current use of insulin 1 each Daily Change sensor every 10 days 3 each 11 11/16/2024 12/16/2024 Active Start: 10-26-2024 End: 11-16-2024 Continuous Glucose Sensor (D excom G7 Sensor) mis Indications: Type 2 diabetes mellitus without complication, without long-term current use of insulin 1 each Daily Change sensor every 10 days 3 each 11 10/26/2024 11/16/2024 Discontinued (Reorder) Start: 10-26-2024 End: 11-25-2024 Continuous Glucose Sensor (D excom G7 Sensor) mis Indications: Type 2 diabetes mellitus without complication, without long-term current use of insulin 1 each Daily Change sensor every 10 days 3 each 10/26/2024 11/25/2024 Active Start: 10-05-2024 End: 10-26-2024 [...] Continuous Glucose Sensor (D excom G7 Sensor[place] [facility] [place]: Type 2 diabetes mellitus without complication, without long-term current use of insulin ([facility]) 1 each Daily Change sensor every 10 days 3 each 09/27/2024 10/27/2024 Active Start: 09-14-2024 End: 09-27-2024 Continuous Glucose Sensor (D excom G7 Sensor[place] [facility] [place]ications: Type 2 diabetes mellitus without complication, without long-term current use of insulin ([facility]) 1 each continuously 3 each 3 09/14/2024 09/27/2024 Discontinued (Reorder) Start: 09-14-2024 Continuous Glu cose Sensor (Dexcom G7 Sensor) [facility] [place]ications: Type 2 diabetes mellitus without complication, without long-term current use of insulin ([facility]) 1 each continuously 3 each 3 09/14/2024 Active fluticasone propionate 0.05 mg/actuat metered dose nasal spray (20 sources) Corticosteroid Start: 03-18-2024 End: 01-25-2026 take 1-2 spray(s) nasal route once daily fluticasone (Flonase) 50 MCG/ACT nasal spray Indications: Seasonal allergies Administer 1-2 sprays into each nostril Daily Shake gently. Before first use, prime pump. After use, clean tip and replace cap. 48 g 1 01/25/2025 01/25/2026 Active folic acid 1 mg oral tablet (20 sources) Start: 01-31-2024 End: 04-25-2025 take 1 tablet by mouth once daily folic acid (Folvite) 1 MG tablet Indications: Other cirrhosis of liver (HCC) Take 1 tablet (1 mg) by mouth Daily 90 tablet 1 01/25/2025 04/25/2025 Active Folic Acid Activ e furosemide 20 mg oral tablet (20 sources) Loop Diuretic Start: 09-16-2023 End: 04-25-2025 take 1 tablet by mouth once daily furosemide (Lasix) 20 MG tablet Indications: Primary hypertension , Other cirrhosis of liver (HCC) Take 1 tablet (20 mg) by mouth Daily 90 tablet 1 01/25/2025 04/25/2025 Active Furosemide Activ e glipiZIDE 5 mg oral tablet (17 sources) Sulfonylurea Start: 09-14-2024 End: 09-14-2025 take 1 tablet by mouth in the morning glipiZIDE (Glucotrol) 5 MG tablet Indications: Type 2 diabetes mellitus without complication, without long-term current use of insulin (HCC) Take 1 tablet (5 mg) by mouth in the morning and 1 tablet (5 mg) in the evening. Take before meals. 180 tablet 01/25/2025 04/25/2025 Active loratadine 10 mg oral capsule (20 sources) Start: 03-18-2024 End: 04-25-2025 take 1 capsule by mouth once daily Loratadine 10 MG capsule Indications: Seasonal allergies Take 10 mg by mouth Daily 90 capsule 1 01/25/2025 04/25/2025 Active losartan potassium 25 mg oral tablet (3 sources) Angiotensin 2 Receptor Eduin Start: 01-25-2025 End: 04-25-2025 take 1 tablet by mouth once daily losartan (Cozaar) 25 MG tablet Indications: Primary hypertension Take 1 tablet (25 mg) by mouth Daily 90 tablet 01/25/2025 04/25/2025 Active 24 hr metFORMIN hydrochloride 500 mg extended release oral tablet (20 sources) Biguanide Start: 03-26-2024 End: 04-25-2025 take 1 tablet by mouth every twenty-four hours at mealtime metFORMIN XR (Glucophage-XR) 500 MG 24 hr tablet Indications: Type 2 diabetes mellitus without complication, without long-term current use of insulin (HCC) Take 1 tablet (500 mg) by mouth in the evening. Take with meals Do not crush, chew, or split. 90 tablet 1 01/25/2025 04/25/2025 Active Potassium (1 source) Potassium Active spironolactone 50 mg oral tablet (20 sources) Aldosterone Antagonist Start: 09-16-2023 End: 05-15-2025 take 1 tablet by mouth once daily spironolactone (Aldactone) 50 MG tablet Indications: Primary hypertension , Other cirrhosis of liver (HCC) Take 1 tablet (50 mg) by mouth Daily 90 tablet 02/14/2025 05/15/2025 Active Spironolactone N ot-Taking/PRN vitamin B12 (1 source) Vitamin B12 Vitamin B12 Acti ve Vitamin D3 (1 source) Vitamin D3 Activ e Completed/Discontinued Medications Medication Drug Class(es) Dates Sig (Normalized) Sig (Original) semaglutide 7 mg oral tablet (7 sources) Start: 07-08-2024 End: 07-08-2025 take 1 tablet by mouth before mealtime semaglutide (Rybelsus) 7 MG tablet Indications: Type 2 diabetes mellitus without complication, without long-term current use of insulin (CMS/HCC) Take 1 tablet (7 mg) by mouth in the morning. Take before meals. 30 tablet 11 07/08/2024 09/14/2024 Discontinued (Cost of medication) Problems Active Problems Problem Classification Problem Date [...] virus with other respiratory manifestations Episodic Other ear and sense organ disorders (7 sources) Bilateral hearing loss; Translations: [Unspecified hearing loss, bilateral] Onset: 12-07-2024 12-07-2024 Chronic Other ear and sense organ disorders (4 sources) Sensorineural hearing loss, bilateral; Translations: [Sensorineural hearing loss, bilateral] Onset: 01-14-2025 01-14-2025 Chronic Other liver diseases (3 sources) Unspecified cirrhosis of liver; Translations: [Cirrhotic] Onset: 03-12-2021 Chronic Other liver diseases (20 sources) Cirrhosis of liver; Translations: [Other cirrhosis of liver] Onset: 09-16-2023 05-03-2024 Chronic Other upper respiratory disease (20 sources) Seasonal allergy; Translations: [Other seasonal allergic rhinitis] Onset: 03-18-2024 03-18-2024 Chronic Past or Other Problems Problem Classification Problem Date Documented Da te Episodic/Chronic Diabetes mellitus without complication (20 sources) Hyperglycemia; Translations: [Impaired fasting glucose] Onset: 03-18-2024 03-18-2024 Episodic Other screening for suspected conditions (not mental disorders or infectious disease) (20 sources) Encounter for screening for malignant neoplasm of colon; Translations: [Ultrasonography of liver abnormal] Onset: 03-07-2021 Episodic Unclassified (1 source) Contact with and (suspected) exposure to covid-19 Z20.822 Results Test Name Value Interpretation Reference Range Facility HbA1c (Bld) [Mass fraction]O rdered By: Jennifer Guy on 01-25-2025 Interpretation and review of laboratory results Abnormal [facility] Laboratory - Hematology and Cell countsOrdered By: Jennifernancy Guy on 01-25-2025 HbA1c (Bld) [Mass fraction] 6.9 % [facility] ALL CBC WITH AUTO DIFFon BASOPHILS ABSOLUTE AUTO 0.1 [facility] Basophils/100 WBC (Bld) 1 % 0.2 - 2.0 % [facility] Eosinophils/100 WBC (Bld) 5.7 % 0.9 - 7.0 % [facility] Erythrocyte distribution width (RBC) [Ratio] 12.7 % 11.0 - 15.0 % [facility] Hematocrit (Bld) [Volume fraction] 45.4 % 42.0 - 54.0 % [facility] Hemoglobin (Bld) [Mass/Vol] 15.4 g/dL 14.0 - 18.0 g/dL [facility] IMMATURE GRANULOCYTES ABS AUTO 0.01 [facility] Immature granulocytes/100 WBC (Bld) 0.2 % 0.0 - 0.5 % [facility] LYMPHOCYTES ABSOLUTE AUTO 1.5 [facility] Lymphocytes/100 WBC (Bld) 24.6 % 20.5 - 60.0 % [facility] MCH (RBC) [Entitic mass] 30.6 pg 25.9 - 34.0 pg [facility] MCHC (RBC) [Mass/Vol] 33.9 g/dL 29.9 - 35.2 g/dL [facility] MCV (RBC) [Entitic vol] 90.3 fL 80.0 - 94.0 fL [facility] MONOCYTES ABSOLUTE AUTO 0.5 [facility] Monocytes/100 WBC (Bld) 8.8 % 1.7 - 12.0 % [facility] NEUTROPHILS ABSOLUTE AUTO 3.7 [facility] Neutrophils/100 WBC (Bld) 59.7 % 43.0 - 75.0 % [facility] Platelet mean volume (Bld) [Entitic vol] 11.1 fL 9.5 - 13.5 fL [facility] EO # 0.4 [facility] PLT 227 [facility] RBC 5.03 [facility] WBC 6.1 [facility] HbA1c (Bld) [Mass fraction]o n 10-26-2024 Interpretation and review of laboratory results Abnormal [facility] Laboratory - Hematology and Cell countson 10-26-2024 HbA1c (Bld) [Mass fraction] 8.00 % [facility] MICROALB CREAT RATIO RAN DOMon 07-02-2024 CREATININE URINE RANDOM 129.52 mg/dL 20.00 - 300.00 mg/dL [facility] Interpretation and review of laboratory results Abnormal [facility] MICROALBUM CREATININE RATIO UR 33.1 mg/g High 0.0 - 29.9 mg/g [facility] Comment on above: NO MICROALBUMINURIA 0-29 MG/G CLINICAL MICROALBUMINURIA 30-300 MG/G MACROALBUMINURIA >300 MG/G MICROALBUMIN URINE RANDOM 4.3 mg/dL NINF - 30.0 mg/dL [facility] ALL LIPID PROFILE (FASTING)o n 03-25-2024 CHOL HDL RATIO 3.7 [facility] Comment on above: 3.3 - 4.4 LOW RISK 4.4 - 7.1 AVERAGE RISK 7.1 - 11.0 MODERATE RISK >11.0 HIGH RISK Cholesterol [Mass/Vol] 177 mg/dL NINF - 200 mg/dL [facility] Cholesterol in HDL [Mass/Vol] 48 mg/dL 40 - 60 mg/dL [facility] Comment on above: > or =60 mg/dl - LOW CARDIOVASCULAR RISK <40 mg/dl - HIGH CARDIOVASCULAR RISK Interpretation and review of laboratory results Abnormal [facility] Magnesium [Mass/Vol] 98.0 mg/dL [facility] Comment on above: <100 mg/dl OPTIMAL 100-129 mg/dl NEAR OR ABOVE OPTIMAL 130-159 mg/dl BORDERLINE HIGH 160-189 mg/dl HIGH >190 mg/dl VERY HIGH Magnesium [Mass/Vol] 31.6 mg/dL [facility] Triglyceride [Mass/Vol] 158 mg/dL High NINF - 150 mg/dL [facility] Quick Testingon 07-18-2023 SARS-CoV-2 (COVID-19) RNA HARDEEP+probe Ql (Unsp spec) Negative [facility] Other COVID + FLU Quick Testing Positive [facility] Other COVID + FLU Quick Testing Negative [facility] Other AFP Tumor Marker, Serumon AFP Tumor Marker, Serum 0.9 ng/mL Normal 0.0-8.4 [facility] Comment on above: Order Comment: Reaso n for Exam Cirrhosis Result Comment: [facility] [employer] Electrochemiluminescence Immunoassay (ECLIA) Values obtained with different assay methods or kits cannot be used interchangeably. Results cannot be interpreted as absolute evidence of the presence or absence of malignant disease. This test is not interpretable in females. Performed at: [facility] [id number] Dietary Clerk: Jose Alberto Alegria PhD, Phone: [phone] PERFORMED BY: [place] [address] PATHOLOGIST BILLET EXAMINER NORM SKINNER M.D. Performed By: #### A FP #### [facility] , liveron 04-30-2022 liver [facility] [place] [address] Ultrasound Report Signed Patient: Herbert Campbell MR#: [id number] : 1955 Acct:[id number] Age/Sex: 67 / M ADM Date: 04/30/22 Loc: Room: Type: [facility] Attending Dr: Bg Perez MD Ordering Provider: [...] Xavi Rincon M.D.04/30/2022 4:21 PM Dictation Location: [place] [address] Tech: Roxanne Shah Transcribed By: STAR 04/30/221620 Dictated By: Xavi Rincon DO 04/30/221611 Signed By: 04/30/221620 [facility] HEPATITIS C VIRUS (HCV) TONY T PCR (NON-[place] 09-21-2021 HCV log10 Normal [facility] Comment on above: Performed By: #### H CVQNNG #### [facility] [address] [place] [address] [address] Genet Ballard Hepatitis C Quantitation Not detected Normal [facility] Comment on above: Performed By: #### H CVQNNG #### [facility] [address] [place] [address] [address] Genet Ballard Test Information: Comment Normal [facility] Comment on above: Result Comment: The quantitative range of this assay is 15 IU/mL to 100 million IU/mL. Performed By: #### H CVQNNG #### [facility] [address] [place] [address] [address] Genet Ballard HEPATITIS C VIRUS (HCV) TONY T PCR (NON-[place] 05-09-2021 HCV log10 Normal [facility] Comment on above: Performed By: #### H CVQNNG #### [facility] [address] [address] [address] Genet Ballard Hepatitis C Quantitation Not detected Normal [facility] Comment on above: Performed By: #### H CVQNNG #### [facility] [address] [place] [address] Dr. Genet Ballard Test Information: Comment Normal [facility] Comment on above: Result Comment: The quantitative range of this assay is 15 IU/mL to 100 million IU/mL. Performed By: #### H CVQNNG #### [facility] [address] [place] [address] Dr. Genet Ballard CBC AUTO DIFFon 05-07-2021 BASO # 0.1 103/ul Normal 0.0-0.1 [facility] Comment on above: Performed By: #### C BC #### [facility] [address] [place] [address] Dr. Genet Ballard Basophils/100 WBC (Bld) 1.1 % Normal 0.2-2.0 [facility] Comment on above: Performed By: #### C BC #### [facility] [address] [place] [address] Dr. Genet Ballard EO # 0.2 103/ul Normal 0.0-0.7 [facility] Comment on above: Performed By: #### C BC #### [facility] [address] [place] [address] Dr. Genet Ballard Eosinophils/100 WBC (Bld) 2.8 % Normal 0.9-7.0 [facility] Comment on above: Performed By: #### C BC #### [facility] [address] [place] [address] Dr. Genet Ballard Erythrocyte distribution width (RBC) [Ratio] 13.0 % Normal 11.0-15.0 [facility] Comment on above: Performed By: #### C BC #### [facility] [address] [place] [address] Dr. Genet Ballard Hematocrit (Bld) [Volume fraction] 45.3 % Normal 42.0-54.0 [facility] Comment on above: Performed By: #### C BC #### [facility] [address] [place] [address] Dr. Genet Ballard Hemoglobin (Bld) [Mass/Vol] 15.1 g/dL Normal 14.0-18.0 [facility] Comment on above: Performed By: #### C BC #### [facility] [address] [place] [address] Dr. Genet Ballard IG # 0.01 10e3/ul Normal 0.00-0.03 [facility] Comment on above: Performed By: #### C BC #### [facility] [address] [place] [address] Dr. Genet Ballard IG % 0.2 % Normal 0.0-0.5 [facility] Comment on above: Performed By: #### C BC #### [facility] [address] [place] [address] Dr. Genet Ballard LYMPH # 2.4 103/ul Normal 1.2-3.8 [facility] Comment on above: Performed By: #### C BC #### [facility] [address] [place] [address] Dr. Genet Ballard Lymphocytes/100 WBC (Bld) 37.4 % Normal 20.5-60.0 [facility] Comment on above: Performed By: #### C BC #### [facility] [address] [place] [address] Dr. Genet Ballard MANUAL DIFF REQ NO Normal [facility] Comment on above: Performed By: #### C BC #### [facility] [address] [place] [address] Dr. Genet Ballard MCH (RBC) [Entitic mass] 30.0 pg Normal 25.9-34.0 [facility] Comment on above: Performed By: #### C BC #### [facility] [address] [place] [address] Dr. Genet Ballard MCHC (RBC) [Mass/Vol] 33.3 g/dL Normal 29.9-35.2 [facility] Comment on above: Performed By: #### C BC #### [facility] [address] [place] [address] Dr. Genet Ballard MCV (RBC) [Entitic vol] 90.1 fL Normal 80.0-94.0 [facility] Comment on above: Performed By: #### C BC #### [facility] [address] [address] [address] Genet Ballard MONO # 0.6 103/ul Normal 0.3-0.8 [facility] Comment on above: Performed By: #### C BC #### [facility] [address] [address] [address] Genet Ballard Monocytes/100 WBC (Bld) 9.7 % Normal 1.7-12.0 [facility] Comment on above: Performed By: #### C BC #### [facility] [address] [address] [address] Genet Ballard NEUT # 3.1 103/ul Normal 1.4-6.5 [facility] Comment on above: Performed By: #### C BC #### [facility] [address] [address] [address] Genet Ballard Neutrophils/100 WBC (Bld) 48.8 % Normal 43.0-75.0 [facility] Comment on above: Performed By: #### C BC #### [facility] [address] [address] [address] Genet Ballard Platelet mean volume (Bld) [Entitic vol] 11.8 fL Normal 9.5-13.5 [facility] Comment on above: Performed By: #### C BC #### [facility] [address] [address] [address] Genet Ballard PLT 231 103/ul Normal 150-450 [facility] Comment on above: Performed By: #### C BC #### [facility] [address] [address] [address] Genet Ballard RBC 5.03 106/ul Normal 4.70-6.10 [facility] Comment on above: Performed By: #### C BC #### [facility] [address] [address] [address] Genet Ballard WBC 6.4 103/ul Normal 4.0-11.0 [facility] Comment on above: Performed By: #### C BC #### [facility] [address] [place] [address] Dr. Genet Ballard PROF 14(COMP METB)on 021 Albumin [Mass/Vol] 4.1 g/dL Normal 3.5-5.0 [facility] Comment on above: Performed By: #### C MP #### [facility] [address] [place] [address] Dr. Genet Ballard Albumin/Globulin [Mass ratio] 1.1 {ratio} Normal [facility] Comment on above: Performed By: #### C MP #### [facility] [address] [place] [address] Dr. Genet Ballard ALP [Catalytic activity/Vol] 38 U/L Normal 38-126 [facility] Comment on above: Performed By: #### C MP #### [facility] [address] [place] [address] Dr. Genet Ballard ALT [Catalytic activity/Vol] 23 U/L Normal 21-72 [facility] Comment on above: Performed By: #### C MP #### [facility] [address] [place] [address] Dr. Genet Ballard Anion gap [Moles/Vol] 11.1 mmol/L Normal [facility] Comment on above: Performed By: #### C MP #### [facility] [address] [place] [address] Dr. Genet Ballard AST [Catalytic activity/Vol] 20 U/L Normal 17-59 [facility] Comment on above: Performed By: #### C MP #### [facility] [address] [place] [address] Dr. Genet Ballard Bilirubin [Mass/Vol] 0.9 mg/dL Normal 0.2-1.3 [facility] Comment on above: Performed By: #### C MP #### [facility] [address] [place] [address] Dr. Genet Ballard Calcium [Mass/Vol] 9.4 mg/dL Normal 8.4-10.2 [facility] Comment on above: Performed By: #### C MP #### [facility] [address] [address] [address] Genet Ballard Chloride [Moles/Vol] 104 mmol/L Normal 98-107 [facility] Comment on above: Performed By: #### C MP #### [facility] [address] [address] [address] Genet Ballard CO2 [Moles/Vol] 31.4 mmol/L Critically high 22.0-30.0 [facility] Comment on above: Performed By: #### C MP #### [facility] [address] [place] [address] Dr. Genet Ballard Creatinine [Mass/Vol] 0.90 mg/dL Normal 0.66-1.25 [facility] Comment on above: Performed By: #### C MP #### [facility] [address] [place] [address] Dr. Genet Ballard EGFR-AF NEW ZEALANDER >60 Normal >=60 [facility] Comment on above: Performed By: #### C MP #### [facility] [address] [place] [address] Dr. Genet Ballard EGFR-NON AF NEW ZEALANDER >60 Normal >=60 [facility] Comment on above: Performed By: #### C MP #### [facility] [address] [place] [address] Dr. Genet Ballard Globulin (S) [Mass/Vol] 3.8 g/dL Normal [facility] Comment on above: Performed By: #### C MP #### [facility] [address] [place] [address] Dr. Genet Ballard Glucose [Mass/Vol] 119 mg/dL Critically high 74-106 [facility] Comment on above: Performed By: #### C MP #### [facility] [address] [place] [address] Dr. Genet Ballard Potassium [Moles/Vol] 4.5 mmol/L Normal 3.4-5.0 [facility] Comment on above: Performed By: #### C MP #### [facility] [address] [place] [address] Dr. Genet Ballard Protein [Mass/Vol] 7.9 g/dL Normal 6.1-8.2 [facility] Comment on above: Performed By: #### C MP #### [facility] [address] [place] [address] Dr. Genet Ballard Sodium [Moles/Vol] 142 mmol/L Normal 137-145 [facility] Comment on above: Performed By: #### C MP #### [facility] [address] [place] [address] Dr. Genet Ballard Urea nitrogen [Mass/Vol] 16.0 mg/dL Normal 9.0-20.0 [facility] Comment on above: Performed By: #### C MP #### [facility] [address] [place] [address] Dr. Genet Ballard Urea nitrogen/Creatini ne [Mass ratio] 17.8 mg/mg Normal [facility] Comment on above: Performed By: #### C MP #### [facility] [address] [place] [address] Dr. Genet Ballard HEPATITIS C VIRUS GENOTYPING , NONREFLEXon 12-14-2020 Hepatitis C Genotype 1a Normal [facility] Comment on above: Performed By: #### H CVGENE #### [facility] [address] [place] [address] Jeffrey Lazo Please note: Comment Normal [facility] Comment on above: Result Comment: This test was developed and its performance characteristics determined by [facility]. It has not been cleared or approved by the U.S. Food and Drug Administration. . The FDA has determined that such clearance or approval is not necessary. This test is used for clinical purposes. It should not be regarded as investigational or for research. Performed By: #### H CVGENE #### [facility] [address] [place] [address] Jeffrey Lazo HEP B SURFACE AGon HBsAg Screen Negative Normal Negative [facility] Comment on above: Performed By: #### H EPBSUR #### [facility] [address] [place] [address] Jeffrey Lazo HEPATITIS B SURFACE ANTIBODY , QUANTon 12-13-2020 Hepatitis B Surf AB Quant <3.1 Critically low Immunity>9. 9 [facility] Comment on above: Result Comment: Stat us of Immunity Anti-HBs Level Inconsistent with Immunity 0.0 - 9.9 Consistent with Immunity >9.9 Performed By: #### H EPBSRF #### [facility] [address] [place] [address] Jeffreylindsay Lazo HEPATITIS C ANTIBODYon 12-13 Hep C Virus Ab >11.0 Critically high 0.0-0.9 [facility] Comment on above: Result Comment: Nega tive: < 0.8 Indeterminate: 0.8 - 0.9 Positive: > 0.9 . The CDC recommends that a positive HCV antibody result be followed up with a HCV Nucleic Acid Amplification test (360845). Performed By: #### H CV #### [facility] [address] [place] [address] Jeffrey Lazo HEPATITIS C VIRUS (HCV) TONY T PCR (NON-[place] 12-13-2020 HCV log10 6.524 log10 IU/mL Normal [facility] Comment on above: Performed By: #### H CVQNNG #### [facility] [address] [place] [address] Jeffrey Lazo Hepatitis C Quantitation [id number] IU/mL Normal [facility] Comment on above: Performed By: #### H CVQNNG #### [facility] [address] [place] [address] Jeffreylindsay Lazo Test Information: Comment Normal [facility] Comment on above: Result Comment: The quantitative range of this assay is 15 IU/mL to 100 million IU/mL. Performed By: #### H CVQNNG #### [facility] [address] [place] [address] Jeffrey Lazo PROF 14(COMP METB)on 021 Albumin [Mass/Vol] 3.8 g/dL Normal 3.5-5.0 [facility] Comment on above: Performed By: #### C MP #### [facility] [address] [place], [place] [address] Jeffrey Violet Albumin/Globulin [Mass ratio] 0.9 {ratio} Normal [facility] Comment on above: Performed By: #### C MP #### [facility] [address] [place], [place] [id number] Jeffrey Violet ALP [Catalytic activity/Vol] 42 U/L Normal 38-126 [facility] Comment on above: Performed By: #### C MP #### [facility] [address] [place], [place] [id number] Jeffrey Violet ALT [Catalytic activity/Vol] 52 U/L Normal 21-72 [facility] Comment on above: Performed By: #### C MP #### [facility] [address] [place], [place] [phone] Jeffrey Violet Anion gap [Moles/Vol] 13.7 mmol/L Normal [facility] Comment on above: Performed By: #### C MP #### [facility] [address] [place] [address] Jeffrey Violet AST [Catalytic activity/Vol] 29 U/L Normal 17-59 [facility] Comment on above: Performed By: #### C MP #### [facility] [address] [place], [place] [phone] Jeffrey Violet Bilirubin [Mass/Vol] 0.9 mg/dL Normal 0.2-1.3 [facility] Comment on above: Performed By: #### C MP #### [facility] [address] [place], [place] [phone] Jeffrey Violet Calcium [Mass/Vol] 8.8 mg/dL Normal 8.4-10.2 [facility] Comment on above: Performed By: #### C MP #### [facility] [address] [place], [place] [phone] Jeffrey Violet Chloride [Moles/Vol] 102 mmol/L Normal 98-107 [facility] Comment on above: Performed By: #### C MP #### [facility] [address] [place], [place] [phone] Jeffrey Violet CO2 [Moles/Vol] 27.3 mmol/L Normal 22.0-30.0 [facility] Comment on above: Performed By: #### C MP #### [facility] [address] [id number] Jeffrey Violet Creatinine [Mass/Vol] 0.97 mg/dL Normal 0.66-1.25 [facility] Comment on above: Performed By: #### C MP #### [facility] [address] [id number] Jeffrey Violet EGFR-AF NEW ZEALANDER >60 Normal >=60 [facility] Comment on above: Performed By: #### C MP #### [facility] [address] [id number] Jeffrey Violet EGFR-NON AF NEW ZEALANDER >60 Normal >=60 [facility] Comment on above: Performed By: #### C MP #### [facility] [address] [place] [address] Jeffrey Violet Globulin (S) [Mass/Vol] 4.0 g/dL Normal [facility] Comment on above: Performed By: #### C MP #### [facility] [address] [address] Jeffrey Violet Glucose [Mass/Vol] 148 mg/dL Critically high 74-106 [facility] Comment on above: Performed By: #### C MP #### [facility] [address] [place] [address] Jeffrey Violet Potassium [Moles/Vol] 4.0 mmol/L Normal 3.4-5.0 [facility] Comment on above: Performed By: #### C MP #### [facility] [address] [place] [address] Jeffrey Violet Protein [Mass/Vol] 7.8 g/dL Normal 6.1-8.2 [facility] Comment on above: Performed By: #### C MP #### [facility] [address] [place] [address] Jeffrey Violet Sodium [Moles/Vol] 139 mmol/L Normal 137-145 [facility] Comment on above: Performed By: #### C MP #### [facility] [address] [place] [address] Jeffrey Violet Urea nitrogen [Mass/Vol] 16.0 mg/dL Normal 9.0-20.0 [facility] Comment on above: Performed By: #### C MP #### [facility] [address] [place] [address] Jeffrey Lazo Urea nitrogen/Creatini ne [Mass ratio] 16.5 mg/mg Normal [facility] Comment on above: Performed By: #### C MP #### [facility] [address] [place] [address] Jeffrey Lazo PROTIMEon 12-12-2020 INR Coag (PPP) [Relative time] 0.96 {INR} Normal [facility] Comment on above: Performed By: #### H CVQNNG #### [facility] [address] [place] [address] Dr. Genet Ballard INR GUIDELINES SEE BELOW Normal [facility] Comment on above: Result Comment: CHANTAL RED INR: 2.0 - 3.0 CONDITIONS NOT LISTED BELOW 2.5 - 3.5 FOR PROSTHETIC HEART VALVE REPLACEMENT 2.5 - 3.5 RECURRENT THROMBOSIS Performed By: #### H CVQNNG #### [facility] [address] [place] [address] Dr. Genet Ballard PT Coag (PPP) [Time] 10.5 s Normal 9.0-11.6 [facility] Comment on above: Performed By: #### H CVQNNG #### [facility] [address] [place] [address] Dr. Genet Ballard Vital Signs Date Time Vital Sign Value Performing Clinician Facility 01-25-2025 13:03-0400 Body mass index (BMI) [Ratio] 28.87 kg/m2 Joanne Vargas MOBILITY MANAGER Work Phone: [facility] 01-25-2025 13:03-0400 Body temperature 98.49 [degF] Joanne Vargas MOBILITY MANAGER Work Phone: [facility] 01-25-2025 13:03-0400 Body weight 99.25 kg Joanne Vargas MOBILITY MANAGER Work Phone: [facility] 01-25-2025 13:03-0400 Diastolic blood pressure 82 mm[Hg] Joanne Aichholz MOBILITY MANAGER Work Phone: [facility] 01-25-2025 13:03-0400 Heart rate 69 /min Joanne Aichholz MOBILITY MANAGER Work Phone: [facility] 01-25-2025 13:03-0400 Respiratory rate 18 /min Joanne Aichholz MOBILITY MANAGER Work Phone: [facility] 01-25-2025 13:03-0400 SaO2% (BldA) [Mass fraction] 96 % Joanne Aichholz MOBILITY MANAGER Work Phone: [facility] 01-25-2025 13:03-0400 Systolic blood pressure 146 mm[Hg] Joanne Aichholz MOBILITY MANAGER Work Phone: [facility] 10-26-2024 13:03-0400 Body mass index (BMI) [Ratio] 29.29 kg/m2 Joanne Aichholz MOBILITY MANAGER Work Phone: [facility] 10-26-2024 13:03-0400 Body temperature 98.1 [degF] Joanne Aichholz MOBILITY MANAGER Work Phone: [facility] 10-26-2024 13:03-0400 Body weight 100.7 kg Joanne Aichholz MOBILITY MANAGER Work Phone: [facility] 10-26-2024 13:03-0400 Diastolic blood pressure 76 mm[Hg] Joanne Aichholz MOBILITY MANAGER Work Phone: [facility] 10-26-2024 13:03-0400 Heart rate 71 /min Joanne Aichholz MOBILITY MANAGER Work Phone: [facility] 10-26-2024 13:03-0400 Respiratory rate 18 /min Joanne Aichholz MOBILITY MANAGER Work Phone: [facility] 10-26-2024 13:03-0400 SaO2% (BldA) [Mass fraction] 96 % Joanne Aichholz MOBILITY MANAGER Work Phone: [facility] 10-26-2024 13:03-0400 Systolic blood pressure 132 mm[Hg] Joanne Vargas MOBILITY MANAGER Work Phone: [facility] 09-14-2024 14:45-0500 Body height 185.4 cm Elham Campuzano MOBILITY MANAGER Work Phone: [facility] 09-14-2024 14:45-0500 Body mass index (BMI) [Ratio] 29.69 kg/m2 Leham Campuzano MOBILITY MANAGER Work Phone: [facility] 09-14-2024 14:45-0500 Body temperature 97.3 [degF] Elham Campuzano MOBILITY MANAGER Work Phone: [facility] 09-14-2024 14:45-0500 Body weight 102.06 kg Elham Campuzano MOBILITY MANAGER Work Phone: [facility] 09-14-2024 14:45-0500 Diastolic blood pressure 88 mm[Hg] Elham Campuzano MOBILITY MANAGER Work Phone: [facility] 09-14-2024 14:45-0500 Heart rate 67 /min Elham Campuzano MOBILITY MANAGER Work Phone: [facility] 09-14-2024 14:45-0500 Respiratory rate 16 /min Elham Campuzano MOBILITY MANAGER Work Phone: [facility] 09-14-2024 14:45-0500 SaO2% (BldA) [Mass fraction] 96 % Elham Campuzano MOBILITY MANAGER Work Phone: [facility] 09-14-2024 14:45-0500 Systolic blood pressure 148 mm[Hg] Elham Campuzano MOBILITY MANAGER Work Phone: [facility] 06-17-2024 13:58-0500 Body height 185.4 cm Elham Campuzano MOBILITY MANAGER Work Phone: [facility] 06-17-2024 13:58-0500 Body mass index (BMI) [Ratio] 29.49 kg/m2 Elham Campuzano MOBILITY MANAGER Work Phone: [facility] 06-17-2024 13:58-0500 Body temperature 96.69 [degF] Elhma Campuzano MOBILITY MANAGER Work Phone: [facility] 06-17-2024 13:58-0500 Body weight 101.38 kg Elham Campuzano MOBILITY MANAGER Work Phone: [facility] 06-17-2024 13:58-0500 Diastolic blood pressure 78 mm[Hg] Elham Campuzano MOBILITY MANAGER Work Phone: [facility] 06-17-2024 13:58-0500 Heart rate 72 /min Elham Campuzano MOBILITY MANAGER Work Phone: [facility] 06-17-2024 13:58-0500 Respiratory rate 16 /min Elham Campuzano MOBILITY MANAGER Work Phone: [facility] 06-17-2024 13:58-0500 SaO2% (BldA) [Mass fraction] 96 % Elham Campuzano MOBILITY MANAGER Work Phone: [facility] 06-17-2024 13:58-0500 Systolic blood pressure 142 mm[Hg] Elham Campuzano MOBILITY MANAGER Work Phone: [facility] 03-18-2024 14:37-0400 Body height 185.4 cm Elham Campuzano MOBILITY MANAGER Work Phone: [facility] 03-18-2024 14:37-0400 Body mass index (BMI) [Ratio] 29.16 kg/m2 Elham Campuzano MOBILITY MANAGER Work Phone: [facility] 03-18-2024 14:37-0400 Body temperature 97.9 [degF] Elham Campuzano MOBILITY MANAGER Work Phone: [facility] 03-18-2024 14:37-0400 Body weight 100.25 kg Elham Campuzano MOBILITY MANAGER Work Phone: [facility] 03-18-2024 14:37-0400 Diastolic blood pressure 76 mm[Hg] Elham Toussaintpatrick MOBILITY MANAGER Work Phone: [facility] 03-18-2024 14:37-0400 Heart rate 73 /min Elham Toussaintpatrick MOBILITY MANAGER Work Phone: [facility] Comment on above: 95% O2 03-18-2024 14:37-0400 Systolic blood pressure 138 mm[Hg] Elham Toussaintpatrick MOBILITY MANAGER Work Phone: [facility] [employer] 07-18-2023 09:35-0500 Body height 185.42 cm Diamond Bear Other [employer] Other 07-18-2023 09:35-0500 Body mass index (BMI) [Ratio] 30.34 kg/m2 Diamond Bear Other [employer] Other 07-18-2023 09:35-0500 Body temperature 99.3 [degF] Diamond Bear Other [employer] Other 07-18-2023 09:35-0500 Body weight 104.33 kg Diamond Bear Other [employer] Other 07-18-2023 09:35-0500 Diastolic blood pressure 84 mm[Hg] Diamond Bear Other [employer] Other 07-18-2023 09:35-0500 Respiratory rate 18 /min Diamond Bear Other [employer] Other 07-18-2023 09:35-0500 SaO2% (BldA) [Mass fraction] 96 % Diamond Bear Other [employer] Other 07-18-2023 09:35-0500 Systolic blood pressure 140 mm[Hg] Diamond Bear Other [employer] Other Encounters Encounter Date Encounter Type Care Provider Facility Start: 02-14-2025 End: 02-14-2025 Refill Joanne Aichholz MOBILITY MANAGER Work Phone: [facility] Comment on above: Primary hypertension ; Other cirrhosis of liver (HCC) Start: 01-25-2025 End: 01-25-2025 Bamboo flowsheet Joanne Aichholz MOBILITY MANAGER Work Phone: [facility] Start: 01-25-2025 End: 01-25-2025 Bamboo flowsheet Joanne Aichholz MOBILITY MANAGER Work Phone: [facility] Start: 01-25-2025 End: 01-25-2025 ambulatory JOANNE AICHHOLZ Not Available Start: 01-25-2025 End: 01-25-2025 Office outpatient visit 25 minutes Joanne Aichholz MOBILITY MANAGER Work Phone: [facility] Comment on above: Type 2 diabetes xiomy itus without complication, without long- term current use of insulin (HCC) (Primary Dx); Primary hypertension ; Abnormal CT of liver; Anxiety, generalized ; Seasonal allergies; Other cirrhosis of liver (HCC) Start: 12-07-2024 End: 12-07-2024 Orders Only Joanne Aichholz MOBILITY MANAGER Work Phone: [facility] Comment on above: Bilateral hearing lo ss, unspecified hearing loss type (Primary Dx) Start: 11-16-2024 End: 11-16-2024 Refill Joanne Aichholz MOBILITY MANAGER Work Phone: [facility] Comment on above: Type 2 diabetes xiomy itus without complication, without long- term current use of insulin Start: 11-02-2024 End: 11-02-2024 Clinisync Result Encounter Joanne Aichholz MOBILITY MANAGER Work Phone: [facility] External Department Unsolicited Start: 11-02-2024 End: 11-02-2024 Clinisync Result Encounter Joanne Losholz MOBILITY MANAGER Work Phone: [facility] External Department Unsolicited Start: 10-26-2024 End: 10-26-2024 Bamboo flowsheet Joanne Aichholz MOBILITY MANAGER Work Phone: [facility] Start: 10-26-2024 End: 10-26-2024 Bamboo flowsheet Joanne Aichholz MOBILITY MANAGER Work Phone: [facility] Start: 10-26-2024 End: 10-26-2024 Office outpatient visit 25 minutes Joannenancy Vargas MOBILITY MANAGER Work Phone: [facility] Comment on above: Type 2 diabetes xiomy itus without complication, without long- term current use of insulin (Primary Dx); Primary hypertension (CMS/HCC); Other cirrhosis of liver; Anxiety, generalized (CMS/HCC); Prostate cancer screening; Chronic hepatitis C without hepatic coma (CMS/HCC); Seasonal allergies Start: 10-26-2024 End: 10-26-2024 ambulatory JOANNE AICHHOLZ Not Available Start: 09-27-2024 End: 09-27-2024 Refill Joanne Velhholz MOBILITY MANAGER Work Phone: [facility] Comment on above: Type 2 diabetes xiomy itus without complication, without long- term current use of insulin (CMS/HCC) Start: 09-14-2024 End: 09-14-2024 Office outpatient visit 15 minutes Elham Campuzano MOBILITY MANAGER Work Phone: [facility] Comment on above: Type 2 diabetes xiomy itus without complication, without long- term current use of insulin (CMS/HCC) (Primary Dx); Primary hypertension (CMS/HCC); Anxiety, generalized (CMS/HCC) Start: 09-14-2024 End: 09-14-2024 ambulatory ELHAM CAMPUZANO Not Available Start: 09-14-2024 End: 09-14-2024 Bamboo flowsheet Elham Lunak MOBILITY MANAGER Work Phone: [facility] Start: 09-14-2024 End: 09-14-2024 Bamboo flowsheet Elham Campuzano MOBILITY MANAGER Work Phone: [facility] Start: 08-18-2024 End: 08-18-2024 Refill Elham Campuzano MOBILITY MANAGER Work Phone: [facility] Comment on above: Primary hypertension (CMS/HCC); Other cirrhosis of liver (CMS/HCC) Start: 07-26-2024 End: 07-28-2024 Refill Paolo Paz MD Work Phone: [facility] Comment on above: Type 2 diabetes xiomy itus without complication, without long- term current use of insulin (CMS/HCC) Start: 07-22-2024 End: 07-24-2024 Refill Elham Campuzano MOBILITY MANAGER Work Phone: [facility] Comment on above: Type 2 diabetes xiomy itus without complication, without long- term current use of insulin (CMS/HCC) Start: 07-08-2024 End: 07-08-2024 Orders Only Elham Campuzano MOBILITY MANAGER Work Phone: [facility] Comment on above: Type 2 diabetes xiomy itus without complication, without long- term current use of insulin (CMS/HCC) (Primary Dx) Start: 07-02-2024 End: 07-02-2024 Clinisync Result Encounter Elham Campuzano MOBILITY MANAGER Work Phone: [facility] External Department Unsolicited Start: 07-02-2024 End: 07-02-2024 Clinisync Result Encounter Elham Campuzano MOBILITY MANAGER Work Phone: [facility] External Department Unsolicited Start: 06-17-2024 End: 06-17-2024 Bamboo flowsheet Elham Campuzano MOBILITY MANAGER Work Phone: [facility] Start: 06-17-2024 End: 06-17-2024 Bamboo flowsheet Elham Campuzano MOBILITY MANAGER Work Phone: [facility] Start: 06-17-2024 End: 06-17-2024 Office outpatient visit 15 minutes Elham Campuzano MOBILITY MANAGER Work Phone: [facility] Comment on above: Type 2 diabetes xiomy itus without complication, without long- term current use of insulin (CMS/HCC) (Primary Dx); Primary hypertension (CMS/HCC); Other cirrhosis of liver (CMS/HCC); Anxiety, generalized (CMS/HCC) Start: 06-17-2024 End: 06-17-2024 ambulatory ELHAMBETO TOUSSAINTCAMPUZANO Not Available Start: 05-03-2024 End: 05-03-2024 Refill Elhambeto ToussaintCampuzano MOBILITY MANAGER Work Phone: [facility] Comment on above: Primary hypertension (CMS/HCC); Other cirrhosis of liver (CMS/HCC) Start: 04-22-2024 End: 04-22-2024 Orders Only Elham Johntrick MOBILITY MANAGER Work Phone: [facility] Comment on above: Type 2 diabetes xiomy itus without complication, without long- term current use of insulin (CMS/HCC) (Primary Dx) Start: 03-26-2024 End: 03-26-2024 Refill Elham Toussaintpatrick MOBILITY MANAGER Work Phone: [facility] Comment on above: Type 2 diabetes xiomy itus without complication, without long- term current use of insulin (CMS/HCC) (Primary Dx) Start: 03-25-2024 End: 03-25-2024 Clinisync Result Encounter Elham Johntrick MOBILITY MANAGER Work Phone: [facility] External Department Unsolicited Start: 03-25-2024 End: 03-25-2024 Clinisync Result Encounter Elham Toussaintpatrick MOBILITY MANAGER Work Phone: [facility] External Department Unsolicited Start: 03-18-2024 End: 03-18-2024 Office outpatient visit 15 minutes Elham Campuzano MOBILITY MANAGER Work Phone: [facility] Comment on above: Primary hypertension (CMS/HCC) (Primary Dx); Chronic hepatitis C without hepatic coma (CMS/HCC); Seasonal allergies; Elevated fasting glucose; Anxiety, generalized (CMS/HCC) Start: 03-18-2024 End: 03-18-2024 ambulatory ELHAM CAMPUZANO Not Available Start: 03-18-2024 End: 03-18-2024 Bamboo flowsheet Elham Campuzano MOBILITY MANAGER Work Phone: [facility] Start: 03-18-2024 End: 03-18-2024 Bamboo flowsheet Elham Riverazpatrick MOBILITY MANAGER Work Phone: [facility] Start: 09-16-2023 Patient encounter status Elham Campuzano MOBILITY MANAGER Work Phone: [facility] Start: 07-18-2023 End: 07-18-2023 ambulatory Diamond Bear Other [employer] Other Start: 07-18-2023 Office outpatient vi sit 15 minutes Diamond Bear [facility] Start: 04-30-2022 End: 04-30-2022 ambulatory Bg Perez Facility:[facility] Start: 04-30-2022 End: 04-30-2022 ambulatory MD Shaikh Cerna Work Phone: [facility] Work Phone: Start: 04-30-2022 End: 04-30-2022 Patient encounter procedure MD Shaikh Cerna Work Phone: [facility] [place] Start: 09-19-2021 End: 09-20-2021 ambulatory KIMBERLEY WALSH JR Facility:H1 Start: 05-07-2021 End: 05-08-2021 ambulatory SHAIKH ERYN Facility:[facility] Start: 03-07-2021 End: 03-07-2021 ambulatory KIMBERLEY WALSH JR Facility:[facility] Start: 03-05-2021 ambulatory KIMBERLEY WALSH JR [facility] ty:H1 Start: 12-12-2020 End: 12-13-2020 ambulatory SHAIKH ERYN Facility:[facility]1 Procedures Date Procedure Procedure Detail Performing Clinician Start: 01-25-2025 Hemoglobin glycosylated a1c Joanne Vargas MOBILITY MANAGER Work Phone: Start: 11-02-2024 ALL CBC WITH AUTO DIFF Joanne Vargas MOBILITY MANAGER Work Phone: Start: 10-26-2024 Hemoglobin glycosylated a1c Joanne Vargas MOBILITY MANAGER Work Phone: Start: 07-02-2024 [facility] MICROALB CREAT R ATIO RANDOM Elham Campuzano MOBILITY MANAGER Work Phone: Start: 03-25-2024 ALL LIPID PROFILE (FASTING) Elham Campuzano MOBILITY MANAGER Work Phone: Start: 04-30-2022 Ultrasonography of liver MD Shaikh Cerna Work Phone: Start: 07-28-2019 Colonoscopy Elham wright MOBILITY MANAGER Work Phone: Screening for malign ant neoplasm of colon Diamond Bear Other Plan of Treatment Date Care Activity Detail Author Start: 07-28-2029 Screening for malign ant neoplasm of colon [facility] Start: 05-24-2026 Glaucoma screening Diabetes: R etinopathy Screening [facility] Start: 11-02-2025 Urine screening for protein Diabetes: Urine Protein Screening [facility] Start: 07-02-2025 Urine screening for protein Diabetes: Urine Protein Screening [facility] Start: 04-27-2025 Hemoglobin A1c measurement Diabetes: Hemoglobin A1C [facility] Start: 03-28-2025 Influenza vaccination [facility] Start: 03-08-2025 End: 03-08-2025 Patient encounter procedure 03/08/2025 2:20 PM EDT Office Visit [facility] [address] [place] [address] Joanne Vargas NP [address] [place] [address] [facility] Start: 01-25-2025 End: 01-25-2026 Basic metabolic 1998 panel - Serum or Plasma Basic metabolic panel Lab Routine Primary hypertension Expected: 01/25/2025 (Approximate), Expires: 01/25/2026 [facility] Work Phone: Comment on above: Expected: 01/25/2025 (Approximate), Expires: 01/25/2026 Start: 01-25-2025 Hemoglobin A1c measurement Diabetes: Hemoglobin A1C [facility] Start: 01-25-2025 End: 01-25-2025 Patient encounter procedure 01/25/2025 1:00 PM EDT Office Visit [facility] [address] [place] [address] Joanne Vargas, MOBILITY MANAGER [address] [place] [address] [facility] Start: 10-26-2024 End: 10-26-2025 CBC W Auto Differential panel - Blood CBC and differential Lab Routine Other cirrhosis of liver (CMS/HCC) Expected: 10/26/2024 (Approximate), Expires: 10/26/2025 [facility] Comment on above: Expected: 10/26/2024 (Approximate), Expires: 10/26/2025 Start: 10-26-2024 End: 10-26-2025 Comprehensive metabolic 2000 panel - Serum or Plasma Comprehensive metabolic panel Lab Routine Primary hypertension (CMS/HCC) Other cirrhosis of liver (CMS/HCC) Type 2 diabetes mellitus without complication, without long-term current use of insulin (CMS/HCC) Expected: 10/26/2024 (Approximate), Expires: 10/26/2025 [facility] Comment on above: Expected: 10/26/2024 (Approximate), Expires: 10/26/2025 Start: 10-26-2024 End: 10-26-2025 Lipid 1996 panel - Serum or Plasma Lipid panel Lab Routine Type 2 diabetes mellitus without complication, without long-term current use of insulin (CMS/HCC) Expected: 10/26/2024 (Approximate), Expires: 10/26/2025 [facility] Comment on above: Expected: 10/26/2024 (Approximate), Expires: 10/26/2025 Start: 10-26-2024 End: 10-26-2025 Microalbumin/Creatinine panel in random Urine Microalbumin / creatinine, urine ratio Lab Routine Primary hypertension (CMS/HCC) Type 2 diabetes mellitus without complication, without long-term current use of insulin (CMS/HCC) Expected: 10/26/2024 (Approximate), Expires: 10/26/2025 [facility] Comment on above: Expected: 10/26/2024 (Approximate), Expires: 10/26/2025 Start: 10-26-2024 End: 10-26-2025 Prostate specific Ag [Mass/volume] in Serum or Plasma PSA Lab Routine Prostate cancer screening Expected: 10/26/2024 (Approximate), Expires: 10/26/2025 [facility] Work Phone: Comment on above: Expected: 10/26/2024 (Approximate), Expires: 10/26/2025 Start: 10-26-2024 End: 10-26-2025 Urinalysis complete panel - Urine Urinalysis with reflex microscopic (clean catch) Lab Routine Primary hypertension (CMS/HCC) Type 2 diabetes mellitus without complication, without long-term current use of insulin (CMS/HCC) Expected: 10/26/2024 (Approximate), Expires: 10/26/2025 [facility] Comment on above: Expected: 10/26/2024 (Approximate), Expires: 10/26/2025 Start: 10-26-2024 End: 10-26-2024 Patient encounter procedure [facility] Comment on above: Primary hypertension (CMS/HCC) (Primary Dx); Other cirrhosis of liver; Type 2 diabetes mellitus without complication, without long-term current use of insulin; Anxiety, generalized (CMS/HCC); Prostate cancer screening; Chronic hepatitis C without hepatic coma (CMS/HCC) Start: 09-16-2024 Pneumococcal Vaccine : 65+ Years (1 of 1 - PCV) Pneumococcal Vaccine: 65+ Years (1 of 1 - PCV) [facility] Comment on above: Postponed from 09/23 /2021 (Patient Refused) Start: 09-16-2024 Pneumococcal Vaccine : 65+ Years (1 of 2 - PCV) Pneumococcal Vaccine: 65+ Years (1 of 2 - PCV) [facility] Comment on above: Postponed from 04/19 (Patient Refused) Start: 09-14-2024 End: 09-14-2024 Patient encounter procedure [facility] Comment on above: Arrived Start: 07-08-2024 End: 04-22-2025 Hemoglobin A1c/Hemoglobin.total in Blood Hemoglobin A1c Lab Routine Type 2 diabetes mellitus without complication, without long-term current use of insulin (CMS/HCC) Expected: 07/08/2024, Expires: 04/22/2025 [facility] Work Phone: Comment on above: Expected: 07/08/2024 , Expires: 04/22/2025 Start: 06-17-2024 End: 06-17-2024 Patient encounter procedure [facility] Comment on above: Arrived Start: 03-28-2024 Influenza vaccination Influenza Vacc ine (#1) [facility] Start: 03-18-2024 End: 03-18-2024 Patient encounter procedure 03/18/2024 2:30 PM EDT Office Visit [facility] [address] [place] [address] Elham Campuzano, JANIA [address] [place] [id number] Primary hypertension (CMS/HCC) (Primary Dx); Chronic hepatitis C without hepatic coma (CMS/HCC) [facility] Comment on above: Primary hypertension (CMS/HCC) (Primary Dx); Chronic hepatitis C without hepatic coma (CMS/HCC) Start: 03-18-2024 End: 03-18-2025 Hemoglobin A1c/Hemoglobin.total in Blood Hemoglobin A1c Lab Routine Elevated fasting glucose Expected: 03/18/2024 (Approximate), Expires: 03/18/2025 [facility] Work Phone: Comment on above: Expected: 03/18/2024 (Approximate), Expires: 03/18/2025 Start: 03-18-2024 End: 03-18-2025 Lipid 1996 panel - Serum or Plasma Lipid panel Lab Routine Primary hypertension (CMS/HCC) Chronic hepatitis C without hepatic coma (CMS/HCC) Expected: 03/18/2024 (Approximate), Expires: 03/18/2025 [facility] Comment on above: Expected: 03/18/2024 (Approximate), Expires: 03/18/2025 Start: 06-19-2023 Screening for malign ant neoplasm of colon FIT-DNA [facility] Start: 1975 Urine screening for protein Diabetes: Urine Protein Screening [facility] Start: 1966 Glaucoma screening Diabetes: R etinopathy Screening [facility] Start: 1956 Hemoglobin A1c measurement Diabetes: Hemoglobin A1C [facility] Start: 1956 Screening for malign ant neoplasm of colon [facility] [id number]. tumo r marker [Mass/volume] in Serum or Plasma [facility] Work Phone: CBC W Auto Different ial panel - Blood CBC and differential Lab Routine Primary hypertension (CMS/HCC) Ordered: 03/18/2024 [facility] Comment on above: Ordered: 03/18/2024 Comprehensive metabo lic 2000 panel - Serum or Plasma Comprehensive metabolic panel Lab Routine Primary hypertension (CMS/HCC) Chronic hepatitis C without hepatic coma (CMS/HCC) Elevated fasting glucose Ordered: 03/18/2024 [facility] Comment on above: Ordered: 03/18/2024 Microalbumin/Creatin ine panel in random Urine Microalbumin / creatinine urine ratio Lab Routine Primary hypertension (CMS/HCC) Type 2 diabetes mellitus without complication, without long-term current use of insulin (CMS/HCC) Ordered: 06/17/2024 [facility] Work Phone: Comment on above: Ordered: 06/17/2024 Immunizations Immunization Date Immunization Notes Care Provider Luda romero 07-15-2024 Pneumococcal Conjugate PCV 20 Joanne Vargas MOBILITY MANAGER Work Phone: [facility] 06-16-2023 Influenza, High-dose Seasonal, Quadrivalent, Preservative Free Joanne Vargas MOBILITY MANAGER Work Phone: [facility] 06-16-2023 influenza virus vaccine, unspecified formulation Elham Campuzano MOBILITY MANAGER Work Phone: [facility] 06-04-2022 Influenza, High-dose Seasonal, Quadrivalent, Preservative Free Joanne Aichholz MOBILITY MANAGER Work Phone: [facility] 05-25-2021 Influenza, High-dose Seasonal, Quadrivalent, Preservative Free Joanne Aichholz MOBILITY MANAGER Work Phone: [facility] 11-04-2020 Do not use COVID-19 Pfizer 2 dose Diamond Marianela Other [facility] Other 10-29-2020 COVID-19 mRNA, Comirnatyobany (Pfizer) MD Shaikh Cerna Work Phone: [facility] 10-13-2020 COVID-19 mRNA, Comirnatyobany (Pfizer) MD Shaikh Cerna Work Phone: [facility] 05-09-2020 influenza, injectable, quadrivalent, preservative free Joanne Aichholz MOBILITY MANAGER Work Phone: [facility] 03-10-2014 hepatitis A vaccine, adult dosage Joanne Aichholz MOBILITY MANAGER Work Phone: [facility] 03-10-2014 hepatitis B vaccine, adult dosage Joanne Aichholz MOBILITY MANAGER Work Phone: [facility] 10-14-2013 hepatitis B vaccine, adult dosage Joanne Aichholz MOBILITY MANAGER Work Phone: [facility] 09-09-2013 hepatitis A vaccine, adult dosage Joanne Aichholz MOBILITY MANAGER Work Phone: [facility] 09-09-2013 hepatitis B vaccine, adult dosage Joanne Aichholz MOBILITY MANAGER Work Phone: [facility] 09-09-2013 tetanus toxoid, reduced diphtheria toxoid, and acellular pertussis vaccine, adsorbed Joanne Aichholz MOBILITY MANAGER Work Phone: [facility] 09-18-2009 novel [id number], preservative-free, injectable Joanne Sam MOBILITY MANAGER Work Phone: [facility] Payers Date Payer Category Payer Medicare [id number] 2023 [place] Health [place] [id number] 2023 Unknown AARP AARP [id number] 2023-Present [address] [place] [address] [id number] 2023 Medicare [id number] 2023 Unknown [id number] 2022 Self-pay [id number] 1955 Unknown [id number] 1956 Unknown [id number] 1956 Unknown [id number] 1956 Unknown [id number] 1956 Unknown [id number] 1956 Unknown [id number] 1956 Unknown [id number] 1956 Unknown [id number] 1956 Unknown [id number] 1956 Unknown [id number] Unknown [id number] Unknown [id number] Unknown [id number] Social History Date Type Detail Facility Tobacco smoking status MOIS Unknown if ever smoked [facility] Work Phone: Start: 1955 Sex Assigned At Male [facility] Start: 03-18-2024 End: 01-25-2025 Sex Assigned At [employer] Other Start: 09-16-2023 Tobacco smoking status [facility] Never smoked tobacco [facility] Start: 09-16-2023 Tobacco use and exposure Smokeless tobacco non-user [facility] Start: 03-18-2024 End: 01-25-2025 Alcoholic beverage intake Lifetime non-drinker (finding) [facility] Start: 03-18-2024 End: 01-25-2025 History of Social function [facility] Start: 1955 Sex assigned at Not on file [facility] NEGATED: Highlighted rowStart: NINF History of tobacco use Passive smoker [facility] Medical Equipment Procedure Code Equipment Code Equipment Origin al Text Equipment Identifier Dates Use as instructed [id number] Start: 06-28-2024 End: 06-28-2025 1 each 2 (two) t imes a day as needed (hyperglucemia/hypog lycemia) [id number] Start: 06-28-2024 End: 07-22-2024 Use as instructed [id number] Start: 07-24-2024 End: 07-22-2025 1 each 2 (two) t imes a day as needed (hyperglucemia/hypog lycemia) [id number] Start: 07-24-2024 Daily Use as instructed [id number] Start: 11-16-2024 End: 11-14-2025 Daily Use as instructed [id number] Start: 01-25-2025 End: 01-23-2026 Clinical Notes 03-07-2021 to 01-25-2025 Joanne Vargas, JANIA - 01/25/2025 1:00 PM Renu Vargas, MOBILITY MANAGER - 01/25/2025 6:48 AM Renu Vargas, MOBILITY MANAGER - 01/25/2025 6:45 AM EDElaine Vargas, MOBILITY MANAGER - 01/25/2025 6:44 AM EDTPatient Instructions Note Date & Type Note Facility 01-25-2025 History of Presen t illness Narrative Images from the original note were not included. Herbert Campbell is a 69 y.o. male presents with chief complaint of Diabetes HPI: Diabetes He presents for his follow-up diabetic visit. He has type 2 diabetes mellitus. His disease course has been improving. Hypoglycemia symptoms include nervousness/anxiousness. Pertinent negatives for hypoglycemia include no dizziness, seizures or tremors. Associated symptoms include polydipsia and polyuria. Pertinent negatives for diabetes include no foot paresthesias, no polyphagia, no visual change and no weight loss. There are no hypoglycemic complications. Symptoms are improving. Pertinent negatives for diabetic complications include no nephropathy or peripheral neuropathy. Risk factors for coronary artery disease include diabetes mellitus, hypertension and male sex. Current diabetic treatment includes oral agent (dual therapy). He is following a generally healthy diet. An MOISÉS inhibitor/angiotensin II receptor eduin is not being taken. Eye exam is current. SUBJECTIVE: MEDICATIONS: Current Outpatient Medications Medication Instructions Blood Glucose Monitoring Suppl (D-Care Glucometer) w/Device kit 1 each, Does not apply, Daily busPIRone (BUSPAR) 5 mg, Oral, 2 times daily Continuous Glucose Hospital Cook (Dexcom G7 Hospital Cook) device 1 each, Does not apply, Continuous fluticasone (Flonase) 50 MCG/ACT nasal spray 1-2 sprays, Each Nostril, Daily, Shake gently. Before first use, prime pump. After use, clean tip and replace cap. furosemide (LASIX) 20 mg, Oral, Daily glipiZIDE (GLUCOTROL) 5 mg, Oral, 2 times daily before meals glucose blood (Cool Blood Glucose Test Strips) test strip Daily Use as instructed Lancets 30G misc 1 each, Does not apply, 2 times daily PRN Loratadine 10 mg, Oral, Daily metFORMIN XR (GLUCOPHAGE-XR) 500 mg, Oral, Daily with evening meal, Do not crush, chew, or split. spironolactone (ALDACTONE) 50 mg, Oral, Daily ALLERGIES: No Known Allergies REVIEW OF SYMPTOMS: Review of Systems Constitutional: Negative for activity change, appetite change, unexpected weight change and weight loss. HENT: Negative for ear pain, nosebleeds, sneezing, trouble swallowing and voice change. Eyes: Negative for pain, discharge and visual disturbance. Respiratory: Negative for apnea, chest tightness and wheezing. Cardiovascular: Negative for leg swelling. Gastrointestinal: Negative for abdominal distention, blood in stool, constipation and diarrhea. Genitourinary: Negative for decreased urine volume, difficulty urinating, dysuria and hematuria. Skin: Negative for color change. Neurological: Negative for dizziness, tremors and seizures. Psychiatric/Behavioral: Negative for agitation, decreased concentration, hallucinations, self-injury and suicidal ideas. The patient is nervous/anxious. Hematological: Negative for adenopathy. Does not bruise/bleed easily. Endocrine: Positive for polydipsia and polyuria. Negative for cold intolerance, heat intolerance and polyphagia. Allergic/Immunologic: Negative for environmental allergies and food allergies. PAST MEDICAL HISTORY Past Medical History: Diagnosis Date Blood glucose elevated Chronic hepatitis C (HCC) Cirrhosis of liver with ascites (HCC) Environmental and seasonal allergies Erectile dysfunction of organic origin Hypertension Past Surgical History: Procedure Laterality Date OTHER SURGICAL HISTORY Ear Surgery VASECTOMY family history includes Cancer in his father. OBJECTIVE: Visit Vitals BP 146/82 (BP Location: Left arm, Patient Position: Sitting, BP Cuff Size: Adult long) Pulse 69 Temp 98.5 F (Temporal) Resp 18 Wt 218 lb 12.8 oz SpO2 96% BMI 28.87 kg/m Smoking Status Never BSA 2.26 m Physical Exam Vitals and nursing note reviewed. Constitutional: Appearance: Normal appearance. HENT: Head: Normocephalic. Right Ear: External ear [...] No edema. Left lower leg: No edema. Skin: General: Skin is warm and dry. Capillary Refill: Capillary refill takes 2 to 3 seconds. Neurological: General: No focal deficit present. Mental Status: He is alert. Psychiatric: Mood and Affect: Mood normal. Behavior: Behavior normal. Thought Content: Thought content normal. Judgment: Judgment normal. ASSESSMENT AND PLAN: No follow-ups on file. Problem List Items Addressed This Visit Other cirrhosis of liver (HCC) Relevant Medications furosemide (Lasix) 20 MG tablet folic acid (Folvite) 1 MG tablet Primary hypertension - Primary Please check blood pressure daily and record DASH diet Limit caffeine Take medication as directed Contact office if chest pain, pressure, dizziness, shortness of breath, swelling legs Recommend slow position changes Current meds: spironolactone Relevant Medications furosemide (Lasix) 20 MG tablet losartan (Cozaar) 25 MG tablet Other Relevant Orders Basic metabolic panel Abnormal CT of liver CT 10/2023, was referred to GI for this Seasonal allergies Relevant Medications Loratadine 10 MG capsule fluticasone (Flonase) 50 MCG/ACT nasal spray Anxiety, generalized Relevant Medications busPIRone (Buspar) 5 MG tablet Type 2 diabetes mellitus without complication (HCC) Check blood sugars daily, notify if <70 [...] 6.9% 01/24/25 , 8.0% 10/26/24, 10.3% 07/20 Relevant Medications glucose blood (Cool Blood Glucose Test Strips) test strip metFORMIN XR (Glucophage-XR) 500 MG 24 hr tablet glipiZIDE (Glucotrol) 5 MG tablet Other Relevant Orders POCT glycosylated hemoglobin (Hb A1C) docked device (Completed) Associated Problem(s): Abnormal CT of liver CT 10/2023, was referred to GI for this Associated Problem(s): Type 2 diabetes mellitus without complication (HCC) Check blood sugars daily, notify if <70 [...] 6.9% 01/24/25 , 8.0% 10/26/24, 10.3% 07/20 Associated Problem(s): Primary hypertension Please check blood pressure daily and record DASH diet Limit caffeine Take medication as directed Contact office if chest pain, pressure, dizziness, shortness of breath, swelling legs Recommend slow position changes Current meds: spironolactone documented in this encounter [facility] 01-25-2025 Instructions Joanne Vargas NP - 01/25/2025 1:00 PM EDT Blood pressure: going to add losartan 25mg once a day Check blood work in about 4 weeks documented in this encounter [facility] 10-26-2024 History of Presen t illness Narrative [...] (dual therapy). An MOISÉS inhibitor/angiotensin II receptor eduin is not being taken. He does not see a branch account manager.Eye exam is current. Anxiety Presents for follow-up [...] Medications Medication Instructions Blood Glucose Monitoring Suppl (D-[employer]access Glucometer) w/Device kit 1 each, Does not apply, Daily busPIRone (BUSPAR) 5 mg, Oral, 2 times daily Continuous Glucose Hospital Cook (Dexcom G7 Hospital Cook) device 1 each, Does not apply, Continuous [...] 8.0% 10/26/24, 10.3% 07/20 #2 sensors: lot [id number] 06/16/25 Relevant Medications Continuous Glucose Sensor (Dexcom [...] 8.0% 10/26/24, 10.3% 07/20 #2 sensors: lot [id number] 06/16/25 Associated Problem(s): Other cirrhosis of liver Current meds: lasix/aldactone Does not see GI at all Associated Problem(s): Primary hypertension (CMS/HCC) Please check blood pressure daily and record DASH diet Limit caffeine Take medication as directed Contact office if chest pain, pressure, dizziness, shortness of breath, swelling legs Recommend slow position changes Current meds: spironolactone documented in this encounter [facility] 10-26-2024 Instructions Joanne Vargas NP - 10/26/2024 1:20 PM EDT Keep up the good work Check labs fasting documented in this encounter [facility] 09-14-2024 History of Presen t illness Narrative [...] List Items Addressed This Visit Primary hypertension ([facility]) Currently taking Lasix 20mg Spironolactone 50mg Checks BP at home; Averages are typically around 130/70. Denies orthostatic changes, dizziness, cough, shortness of breath, swelling in extremities. Continue current regimen. Given BP log, advised pt to record BP and bring log back with them to next visit. Anxiety, generalized ([facility]) Has been taking Buspar 5mg BID. Reports no unwanted side effects form medication. Feels anxiety has improved since starting medication, states he feels much calmer . Continue current regimen. Type 2 diabetes mellitus without complication ([facility]) - Primary Started patient on Metformin 500mg [...] glipiZIDE (Glucotrol) 5 MG tablet Continuous Glucose Hospital Cook (Dexcom G7 Hospital Cook) device Continuous Glucose Sensor (Dexcom G7 Sensor) misc documented in this encounter [facility] 09-14-2024 Instructions Elham Campuzano NP - 09/14/2024 [...] and simple sugars. documented in this encounter [facility] 07-08-2024 History of Presen t illness Narrative documented in this encounter [facility] 06-17-2024 History of Presen t illness Narrative [...] BG at home. documented in this encounter [facility] 03-20-2024 History of Presen t illness Narrative [...] 0.70 - 1.30 mg/dL 1.03 TBH EGFR-AF [place]ER >=60 >60 TBH EGFR-NON AF [place]ER >=60 >60 BUN CREATININE RATIO 16.5 CALCIUM [...] Buspar 5mg BID. documented in this encounter [facility] 03-18-2024 Instructions Elham Campuzano NP - 03/18/2024 [...] day. Consider tracking your food intake on MyCelladoninessPal or LoseIt Water: Increase water intake; GOAL [...] sleep per night. documented in this encounter [facility] 07-18-2023 Evaluation note Encounter Date Diagnosis Assessment [...] physician if no improvement in 2-3 days [employer] Other 08-11-2021 NoteOPERATIVE NOTE OPERATION DATE: 03-07-21 [...] the office for continued management of cirrhosis. [facility] Signed and Approved by: KIMBERLEY WALSH JR 03/07/2021 [facility]:12[facility]00[facility] information [facility]: [facility]* Diagnosis Primary hypertension [...] of insulin (CMS/HCC) [facility] of insulin (CMS/HCC) [facility] [...] cause unspecified documented in this [facility]* [...] (CMS/HCC) Seasonal allergies Allergic rhinitis, cause unspecified Type 2 diabetes mellitus without complication, without long-term current use of insulin [facility]* [...] (CMS/HCC) Seasonal allergies Allergic rhinitis, cause unspecified Bilateral hearing loss, unspecified hearing loss type- Primary documented in this encounter [facility]* Diagnosis Primary hypertension- Primary Unspecified essential hypertension Other cirrhosis of liver (HCC) Chronic hepatitis C without hepatic coma (HCC) Screening for prostate cancer Special screening for malignant neoplasm of prostate Wellness examination Abnormal ultrasound of liver- Primary Abnormal CT of liver- Primary Primary hypertension- Primary Unspecified essential hypertension Chronic hepatitis C without hepatic coma (HCC) Seasonal allergies Allergic rhinitis, cause unspecified Elevated fasting glucose Impaired fasting glucose Anxiety, generalized Type 2 diabetes mellitus without complication, without long-term current use of insulin (HCC)- Primary Primary hypertension Unspecified essential hypertension Other cirrhosis of liver (HCC) Anxiety, generalized Type 2 diabetes mellitus without complication, without long-term current use of insulin (HCC)- Primary Primary hypertension Unspecified essential hypertension Anxiety, generalized Type 2 diabetes mellitus without complication, without long-term current use of insulin (HCC)- Primary Primary hypertension Unspecified essential hypertension Other cirrhosis of liver (HCC) Anxiety, generalized Prostate cancer screening Special screening for malignant neoplasm of prostate Chronic hepatitis C without hepatic coma (HCC) Seasonal allergies Allergic rhinitis, cause unspecified Type 2 diabetes mellitus without complication, without long-term current use of insulin (HCC)- Primary Primary hypertension Unspecified essential hypertension Abnormal CT of liver Anxiety, generalized Seasonal allergies Allergic rhinitis, cause unspecified Other cirrhosis of liver (HCC) [facility]* Diagnosis Primary hypertension- Primary Unspecified essential hypertension Other cirrhosis of liver (HCC) Chronic hepatitis C without hepatic coma (HCC) Screening for prostate cancer Special screening for malignant neoplasm of prostate Wellness examination Abnormal ultrasound of liver- Primary Abnormal CT of liver- Primary Primary hypertension- Primary Unspecified essential hypertension Chronic hepatitis C without hepatic coma (HCC) Seasonal allergies Allergic rhinitis, cause unspecified Elevated fasting glucose Impaired fasting glucose Anxiety, generalized Type 2 diabetes mellitus without complication, without long-term current use of insulin (HCC)- Primary Primary hypertension Unspecified essential hypertension Other cirrhosis of liver (HCC) Anxiety, generalized Type 2 diabetes mellitus without complication, without long-term current use of insulin (HCC)- Primary Primary hypertension Unspecified essential hypertension Anxiety, generalized Type 2 diabetes mellitus without complication, without long-term current use of insulin (HCC)- Primary Primary hypertension Unspecified essential hypertension Other cirrhosis of liver (HCC) Anxiety, generalized Prostate cancer screening Special screening for malignant neoplasm of prostate Chronic hepatitis C without hepatic coma (HCC) Seasonal allergies Allergic rhinitis, cause unspecified Type 2 diabetes mellitus without complication, without long-term current use of insulin (HCC)- Primary Primary hypertension Unspecified essential hypertension Abnormal CT of liver Anxiety, generalized Seasonal allergies Allergic rhinitis, cause unspecified Other cirrhosis of liver (HCC) Primary hypertension Unspecified essential hypertension Other cirrhosis of liver (HCC) documented in this encounter [facility] HealthcareHistory general Narrative - Reported* Type Description Date Medical History hepatitis C [employer] Other Summary Purpose Family History No Family History Records FoundNo Family History Records FoundNo Family History Records Found Advance Directives Advance Directive Response Recorded Date/ Time Advance Directives No February 19 10:04am Chief Complaint and Reason for Visit Chief Complaint Cirrhosis Additional Source Comments (unrecognized sect ion and content) No Status Records FoundNo Status Records FoundNo Status Records Found INFORMATION SOURCE (unrecogn ized section and content) DATE CREATED AUTHOR 09/21/2021 [facility] DATE CREATED AUTHOR AUTHOR'S ORGANIZ ATION 05/01/2022 [facility] DATE CREATED AUTHOR AUTHOR'S ORGANIZ ATION 01/27/2025 [facility] [employer] Care Teams (unrecognized sec tion and content) Team Status: Inactive Member Role Status Dates Bg Perez MD Attending Provider Active Shaikh Eryn MD Primary Care Provider Active Team Status: Active Member Role Status Dates Shaikh Eryn MD Primary Care Provider Active [employer] Relationship Specialty Start Date End Date Paolo Paz MD [address] [place] [phone] PCP - General Family Medicine 03/01/24 Elham Campuzano NP [address] [place] [address] Nurse Practitioner Family Medicine 03/01/24 [employer] Relationship Specialty Start Date End Date Paolo Paz MD [address] [place] [phone] PCP - General Family Medicine 03/01/24 Elham Campuzano NP [address] [place] [address] Nurse Practitioner Family Medicine 03/01/24 [employer] Relationship Specialty Start Date End Date Paolo Paz MD [address] [place] [phone] PCP - General Family Medicine 03/01/24 Elham Campuzano NP [address] [place] [address] Nurse Practitioner Family Medicine 03/01/24 [employer] Relationship Specialty Start Date End Date Paolo Paz MD [address] [place] [phone] PCP - General Family Medicine 03/01/24 Elham Campuzano NP [address] [place] [address] Nurse Practitioner Family Medicine 03/01/24 [employer] Relationship Specialty Start Date End Date Paolo Paz MD [address] [place] [phone] PCP - General Family Medicine 03/01/24 Elham Campuzano NP [address] [place] [address] Nurse Practitioner Family Medicine 03/01/24 [employer] Relationship Specialty Start Date End Date Paolo Paz MD [address] [place] [phone] PCP - General Family Medicine 03/01/24 Elham Campuzano NP [address] [place] [address] Nurse Practitioner Family Medicine 03/01/24 [employer] Relationship Specialty Start Date End Date Paolo Paz MD [address] [place] [phone] PCP - General Family Medicine 03/01/24 Elham Campuzano NP [address] [place] [address] Nurse Practitioner Family Medicine 03/01/24 [employer] Relationship Specialty Start Date End Date Paolo Paz MD [address] [place] [address] PCP - General Family Medicine 03/01/24 Elham Campuzano NP [address] [place] [address] Nurse Practitioner Family Medicine 03/01/24 [employer] Relationship Specialty Start Date End Date Paolo Paz MD [address] [place] [phone] PCP - General Family Medicine 03/01/24 Elham Campuzano NP [address] [place] [address] Nurse Practitioner Family Medicine 03/01/24 [employer] Relationship Specialty Start Date End Date Paolo Paz MD [address] [place] [phone] PCP - General Family Medicine 03/01/24 Elham Campuzano NP [address] [place] [address] Nurse Practitioner Family Medicine 03/01/24 [employer] Relationship Specialty Start Date End Date Paolo Paz MD [address] [place] [address] PCP - General Family Medicine 03/01/24 Elham Campuzano NP [address] [place] [address] Nurse Practitioner Family Medicine 03/01/24 [employer] Relationship Specialty Start Date End Date Paolo Paz MD [address] [place] [phone] PCP - General Family Medicine 03/01/24 Elham Campuzano NP [address] [place] [address] Nurse Practitioner Family Medicine 03/01/24 [employer] Relationship Specialty Start Date End Date Paolo Paz MD [address] [place] [phone] PCP - General Family Medicine 03/01/24 Elham Campuzano NP [address] [place] [address] Nurse Practitioner Family Medicine 03/01/24 [employer] Relationship Specialty Start Date End Date Paolo Paz MD [address] [place] [address] PCP - General Family Medicine 03/01/24 Elham Campuzano NP [address] [place] [address] Nurse Practitioner Family Medicine 03/01/24 [employer] Relationship Specialty Start Date End Date Paolo Paz MD [address] [place] [phone] PCP - General Family Medicine 03/01/24 Elham Campuzano NP [address] [place] [address] Nurse Practitioner Family Medicine 03/01/24 [employer] Relationship Specialty Start Date End Date Paolo Paz MD [address] [place] [phone] PCP - General Family Medicine 03/01/24 Elham Campuzano NP [address] [place] [address] Nurse Practitioner Family Medicine 03/01/24 [employer] Relationship Specialty Start Date End Date Paolo Paz MD [address] [place] [address] PCP - General Family Medicine 03/01/24 Elham Campuzano NP [address] [place] [address] Nurse Practitioner Family Medicine 03/01/24 [employer] Relationship Specialty Start Date End Date Paolo Paz MD [address] [place] [phone] PCP - General Family Medicine 03/01/24 Elham Campuzano NP [address] [place] [address] Nurse Practitioner Family Medicine 03/01/24 [employer] Relationship Specialty Start Date End Date Paolo Paz MD [address] [place] [address] PCP - General Family Medicine 03/01/24 Elham Campuzano NP [address] [place] [address] Nurse Practitioner Family Medicine 03/01/24 [employer] Relationship Specialty Start Date End Date Paolo Paz MD [address] [place] [phone] PCP - General Family Medicine 03/01/24 Elham Campuzano NP [address] [place] [address] Nurse Practitioner Family Medicine 03/01/24 [employer] Relationship Specialty Start Date End Date Paolo Paz MD [address] [place] [address] PCP - General Family Medicine 03/01/24 Elham Campuzano NP [address] [place] [address] Nurse Practitioner Family Medicine 03/01/24 [employer] Relationship Specialty Start Date End Date Paolo Paz MD [address] [place] [phone] PCP - General Family Medicine 03/01/24 Elham Campuzano NP [address] [place] [address] Nurse Practitioner Family Medicine 03/01/24 [employer] Relationship Specialty Start Date End Date Paolo Paz MD [address] [place] [phone] PCP - General Family Medicine 03/01/24 Elham Campuzano NP [address] [place] [address] Nurse Practitioner [facility] 03/01/24 [employer] Relationship Specialty Start Date End Date Paolo Paz MD [address] [place] [address] PCP - General Family Medicine 03/01/24 Elham Campuzano NP [address] [place] [address] Nurse Practitioner [facility] 03/01/24 Goals (unrecognized section and content) Goals may be documented in a n alternate sectionNo Information REASON FOR VISIT (unrecogniz ed section and content) Reason Onset Date Comments Med Refill 05/03/2024 Reason Comments Follow-up Reason Comments Follow-up BROUGHT MEDS Reason Onset Date Comments Med Refill 07/22/2024 Reason Onset Date Comments Med Refill 07/26/2024 Reason Comments Med Refill Reason Comments Diabetes FOR RECORDS PERTAINING TO PATIENTS WHO ARE [...] BE BASED ON THE PRIMARY CLINICAL RECORDS. [employer] provides no warranty or guarantee of the accuracy or completeness of information in this document.
[2025-03-22 10:37] LABS: Anion Gap 12.8; Blood Urea Nitrogen 18.0 mg/dL (7.0-18.0); Calcium 9.3 mg/dL (8.5-10.1); Carbon Dioxide 28.1 mmol/L (21.0-32.0); Chloride 103 mmol/L (98-107); Estimated GFR (African America >60 (>=60 mL/min/1.73m^2); Estimated GFR (Non-African Ame >60 (>=60 mL/min/1.73m^2); Glucose 147 mg/dL (74-106); Potassium 3.9 mmol/L (3.5-5.1); Sodium 140 mmol/L (136-145)
== END 2025-03-22 09:58 | disposition home or self-care (01) ==
PROVIDERS: PCP Nurse Practitioner; Visit Provider Nurse Practitioner
DX: I10 Essential (primary) hypertension (principal)
CPT/HCPCS: 36415; 80048